=== PATIENT | male | born 1945 | race Two or more races ===

== ENCOUNTER → 2017-06-06 | Outpatient (CLI) | payer MEDICARE, MEDICAID ==
--- NOTE | 2017-06-06 09:57 | RADIOLOGY REPORT (SQ) ---
EXAM DESCRIPTION: CT ABD/PELVIS WITH IV ORAL COMPLETED DATE/TIME: 06/06/2017 8:31 am REASON FOR STUDY: ABD PAIN (R10.9) R10.9 UNSPECIFIED ABDOMINAL PAIN COMPARISON: None. TECHNIQUE: CT scan of the abdomen and pelvis performed with intravenous and oral contrast using josue mary scanning technique with dynamic intravenous contrast injection. Images reviewed with lung, soft t issue, and bone windows. Reconstructed coronal and sagittal MPR images reviewed. Delayed images for e valuation of the urinary system also acquired. All images stored on PACS. All CT scanners at this facility use dose modulation, iterative reconstruction, and/or weight based d osing when appropriate to reduce radiation dose to as low as reasonably achievable (ALARA). [facility]: Dose Right [facility]: CareDose [facility]: Dose Right [facility]: Teradose 4D [facility]: IMRSV CONTRAST TYPE AND DOSE: contrast/concentration: Isovue 370.00 mg/ml; Total Contrast Delivered: 89.0 ml; Total Saline Delivered: 70.0 ml RENAL FUNCTION: BUN 14 creatinine 0.67. RADIATION DOSE: Up-to-date CT equipment and radiation dose reduction techniques were employed. CTDIv ol: 6.7 - 7.9 mGy. DLP: 776 mGy-cm. . LIMITATIONS: None. FINDINGS: LOWER CHEST: No significant findings. No nodules or infiltrates. LIVER: Normal size. Diffuse fatty infiltration. No masses. No dilated ducts. SPLEEN: Normal size. No focal lesions. PANCREAS: No masses. No significant calcifications. No adjacent inflammation or peripancreatic fluid collections. Pancreatic duct not dilated. GALLBLADDER: No identified stones by CT criteria. No inflammatory changes to suggest cholecystitis. ADRENAL GLANDS: No significant masses or asymmetry. RIGHT KIDNEY AND URETER: No solid masses. No significant calcifications. No hydronephrosis or hyd roureter. LEFT KIDNEY AND URETER: No solid masses. No significant calcifications. No hydronephrosis or hydr oureter. AORTA AND VESSELS: No aneurysm. No dissection. Renal arteries, SMA, celiac without stenosis. RETROPERITONEUM: No retroperitoneal adenopathy, hemorrhage or masses. BOWEL AND PERITONEAL CAVITY: Scattered colonic diverticuli. Suboptimal contrast distention of the co nicolasa with areas of relative bowel wall thickening, most noticeable in the ascending colon. Stool in t he cecum. No obstruction. No visualized masses. No free fluid. No inflammatory changes or thickenin g of bowel wall. APPENDIX: Normal. PELVIS: No significant masses. Normal bladder. No free fluid. ABDOMINAL WALL: No masses. No hernias. BONES: No significant or acute findings. OTHER: No other significant finding. IMPRESSION: 1. COLONIC DIVERTICULOSIS. NO CT EVIDENCE OF ACUTE DIVERTICULITIS. THERE IS SUBOPTIMAL EVALUATION O F THE COLON DUE TO INCOMPLETE CONTRAST DISTENTION. IF CLINICALLY INDICATED, MAY CONSIDER COLONOSCOPY OR BARIUM ENEMA TO EVALUATE FOR ANY OTHER COLON PATHOLOGY. 2. NO OTHER SIGNIFICANT OR ACUTE FINDINGS IN THE ABDOMEN OR PELVIS. INCIDENTAL FATTY INFILTRATION OF THE LIVER. TECHNICAL DOCUMENTATION: JOB ID: [id number] Quality ID # [id number]: Final reports with documentation of one or more dose reduction techniques (e.g., Au tomated exposure control, adjustment of the mA and/or kV according to patient size, use of iterative reconstruction technique) 2010 [employer]- All Rights Reserved
== END ==
LOC: RAD 07:35
PROVIDERS: ATTEND Internal Medicine Geriatric Medicine
DX: R10.9 Unspecified abdominal pain (principal)
CPT/HCPCS: 74177

== ENCOUNTER → 2018-05-19 | Outpatient (CLI) | payer MEDICARE, MEDICAID ==
[2018-05-19 15:49] LABS: ABSOLUTE BASOPHILS # (AUTO) 0.1 10^3/uL (0.0-0.2); ABSOLUTE EOSINOPHILS # (AUTO) 0.5 10^3/uL (0.0-0.6); ABSOLUTE LYMPHOCYTES (AUTO) 1.7 10^3/uL (0.5-4.7); ABSOLUTE MONOCYTES (AUTO) 0.6 10^3/uL (0.1-1.4); ABSOLUTE NEUT (AUTO) 5.8 10^3/uL (1.7-8.2); BASOPHILS % (AUTO) 1.4 % (0-2); EOSINOPHILS % (AUTO) 5.9 % (0-6); HEMATOCRIT 44.1 % (37.9-51.0); HEMOGLOBIN 15.5 g/dL (13.5-17.0); LYMPHOCYTES % (AUTO) 19.5 % (13-45); MEAN CORPUSCULAR HEMOGLOBIN 35.4 pg (27.0-33.4); MEAN CORPUSCULAR HGB CONC 35.2 g/dL (32.0-36.0); MEAN CORPUSCULAR VOLUME 100 fl (80-97); MONOCYTES % (AUTO) 7.1 % (3-13); PLATELET COUNT 225 10^3/uL (150-450); RED BLOOD COUNT 4.39 10^6/uL (4.35-5.55); RED CELL DISTRIBUTION WIDTH 12.2 % (11.5-14.0); SEGMENTED NEUTROPHILS % (AUTO) 66.1 % (42-78); TOTAL CELLS COUNTED % (AUTO) 100 %; WHITE BLOOD COUNT 8.8 10^3/uL (4.0-10.5)
[2018-05-19 16:13] LABS: ALANINE AMINOTRANSFERASE 49 U/L (21-72); ALBUMIN 3.9 g/dL (3.5-5.0); ALKALINE PHOSPHATASE 132 U/L (38-126); ANION GAP 11 (5-19); ASPARTATE AMINO TRANSFERASE 64 U/L (17-59); BILIRUBIN,DIRECT 0.7 mg/dL (0.0-0.4); BILIRUBIN,TOTAL 2.1 mg/dL (0.2-1.3); BLOOD UREA NITROGEN 12 mg/dL (7-20); CALCIUM 9.4 mg/dL (8.4-10.2); CARBON DIOXIDE 30 mmol/L (22-30); CHLORIDE 97 mmol/L (98-107); CHOLESTEROL 216.69 mg/dL (0-200); GLUCOSE 330 mg/dL (75-110); POTASSIUM 4.6 mmol/L (3.6-5.0); SODIUM 137.5 mmol/L (137-145); TOTAL PROTEIN 7.2 g/dL (6.3-8.2); TRIGLYCERIDES 142 mg/dL (<150)
[2018-05-19 16:24] LABS: DIRECT LDL 163 mg/dL (<100)
--- NOTE | 2018-05-19 16:34 | RADIOLOGY REPORT (SQ) ---
EXAM DESCRIPTION: KNEE LEFT 4 VIEWS COMPLETED DATE/TIME: 05/19/2018 4:16 pm REASON FOR STUDY: DJD D64.9 ANEMIA, UNSPECIFIED E11.9 TYPE 2 DIABETES MELLITUS WITHOUT COMPLICATIO NS R10.9 UNSPECIFIED ABDOMINAL PAIN COMPARISON: None. NUMBER OF VIEWS: Four views. TECHNIQUE: AP, lateral, and both oblique radiographic images acquired of the left knee. LIMITATIONS: None. FINDINGS: MINERALIZATION: Normal. BONES: No acute fracture or dislocation. No worrisome bone lesions. No significant osteophytes. JOINT: No effusion. No chondrocalcinosis. OTHER: No other significant finding. IMPRESSION: NEGATIVE STUDY OF THE LEFT KNEE. NO EXPLANATION FOR PAIN. TECHNICAL DOCUMENTATION: JOB ID: [id number] [employer]- All Rights Reserved Reading location - IP/workstation name: [email or web address]
--- NOTE | 2018-05-19 16:34 | RADIOLOGY REPORT (SQ) ---
EXAM DESCRIPTION: ANKLE BILATERAL 3 VIEWS MIN COMPLETED DATE/TIME: 05/19/2018 4:16 pm REASON FOR STUDY: DJD D64.9 ANEMIA, UNSPECIFIED E11.9 TYPE 2 DIABETES MELLITUS WITHOUT COMPLICATIO NS R10.9 UNSPECIFIED ABDOMINAL PAIN COMPARISON: None. NUMBER OF VIEWS: Three views. TECHNIQUE: AP, lateral, and oblique without weight bearing radiographic images acquired of the right and left ankle. LIMITATIONS: None. FINDINGS: MINERALIZATION: Normal. BONES: No acute fracture or dislocation. No worrisome bone lesions. Osteophytes in the tibiotalar adriana nt of the left ankle. JOINTS: No effusions. SOFT TISSUES: No soft tissue swelling. No foreign body. OTHER: No other significant finding. IMPRESSION: DEGENERATIVE CHANGES IN THE LEFT ANKLE. NO ACUTE FINDINGS. TECHNICAL DOCUMENTATION: JOB ID: [id number] [employer]- All Rights Reserved Reading location - IP/workstation name: [email or web address]
--- NOTE | 2018-05-19 16:35 | RADIOLOGY REPORT (SQ) ---
EXAM DESCRIPTION: KNEE RIGHT 4 VIEWS COMPLETED DATE/TIME: 05/19/2018 4:16 pm REASON FOR STUDY: DJD D64.9 ANEMIA, UNSPECIFIED E11.9 TYPE 2 DIABETES MELLITUS WITHOUT COMPLICATIO NS R10.9 UNSPECIFIED ABDOMINAL PAIN COMPARISON: None. NUMBER OF VIEWS: Four views. TECHNIQUE: AP, lateral, and both oblique radiographic images acquired of the right knee. LIMITATIONS: None. FINDINGS: MINERALIZATION: Normal. BONES: No acute fracture or dislocation. No worrisome bone lesions. Small osteophytes in the medial c ompartment. JOINT: No effusion. No chondrocalcinosis. OTHER: No other significant finding. IMPRESSION: MILD DEGENERATIVE CHANGES IN THE MEDIAL COMPARTMENT. NO ACUTE FINDINGS. TECHNICAL DOCUMENTATION: JOB ID: [id number] [employer]- All Rights Reserved Reading location - IP/workstation name: [email or web address]
[2018-05-21 12:38] LABS: CREATININE URINE 455.3 mg/dL (Not Estab.); MICROALBUMIN URINE 97.7 ug/mL (Not Estab.)
== END ==
LOC: OD 14:31
PROVIDERS: ATTEND Internal Medicine
DX: D64.9 Anemia, unspecified (principal); E11.9 Type 2 diabetes mellitus without complications; R10.9 Unspecified abdominal pain; E55.9 Vitamin D deficiency, unspecified; E78.5 Hyperlipidemia, unspecified; M19.90 Unspecified osteoarthritis, unspecified site
CPT/HCPCS: 36415; 80053; 80061; 82043; 82306; 82570; 83036; 84443; 85025

== ENCOUNTER → 2018-06-30 | Outpatient (CLI) | payer MEDICARE, MEDICAID ==
[2018-06-30 16:09] LABS: ALANINE AMINOTRANSFERASE 32 U/L (21-72); ALKALINE PHOSPHATASE 82 U/L (38-126); ANION GAP 11 (5-19); ASPARTATE AMINO TRANSFERASE 39 U/L (17-59); BILIRUBIN,DIRECT 0.4 mg/dL (0.0-0.4); BILIRUBIN,TOTAL 1.3 mg/dL (0.2-1.3); BLOOD UREA NITROGEN 13 mg/dL (7-20); CALCIUM 9.5 mg/dL (8.4-10.2); CARBON DIOXIDE 30 mmol/L (22-30); CHLORIDE 96 mmol/L (98-107); POTASSIUM 4.7 mmol/L (3.6-5.0); SODIUM 136.8 mmol/L (137-145); TOTAL PROTEIN 7.2 g/dL (6.3-8.2); URIC ACID 6.1 mg/dL (3.5-8.5)
[2018-06-30 16:19] LABS: GLUCOSE 395 mg/dL (75-110)
== END ==
LOC: LAB 15:08
PROVIDERS: ATTEND Internal Medicine
DX: M10.9 Gout, unspecified (principal); R94.5 Abnormal results of liver function studies
CPT/HCPCS: 36415; 80053; 84550

== ENCOUNTER → 2018-10-26 | Outpatient (CLI) | payer MEDICARE, MEDICAID ==
[2018-10-26 13:49] LABS: ALANINE AMINOTRANSFERASE 29 U/L (21-72); ALBUMIN 4.4 g/dL (3.5-5.0); ALKALINE PHOSPHATASE 92 U/L (38-126); ANION GAP 11 (5-19); ASPARTATE AMINO TRANSFERASE 42 U/L (17-59); BILIRUBIN,DIRECT 0.4 mg/dL (0.0-0.4); BILIRUBIN,TOTAL 1.5 mg/dL (0.2-1.3); BLOOD UREA NITROGEN 16 mg/dL (7-20); CALCIUM 10.2 mg/dL (8.4-10.2); CARBON DIOXIDE 31 mmol/L (22-30); CHLORIDE 94 mmol/L (98-107); GLUCOSE 321 mg/dL (75-110); POTASSIUM 4.5 mmol/L (3.6-5.0); SODIUM 135.5 mmol/L (137-145); TOTAL PROTEIN 7.3 g/dL (6.3-8.2); TRIGLYCERIDES 221 mg/dL (<150)
[2018-10-26 14:00] LABS: DIRECT LDL 167 mg/dL (<100)
[2018-10-26 14:01] LABS: VLDL CHOLESTEROL 44.2 mg/dL (10-31)
[2018-10-27 10:38] LABS: MICROALBUMIN URINE 6.7 ug/mL (Not Estab.)
== END ==
LOC: LAB 12:42
PROVIDERS: ATTEND Internal Medicine
DX: E11.8 Type 2 diabetes mellitus with unspecified complications (principal); N19 Unspecified kidney failure; R10.9 Unspecified abdominal pain; E78.5 Hyperlipidemia, unspecified
CPT/HCPCS: 36415; 80048; 80061; 80076; 82043; 82570

== ENCOUNTER 2019-08-17 10:12 | Inpatient (IN) | payer MEDICARE, MEDICAID ==
[2019-08-17] MEDS ORDERED: CEFEPIME INJ 1 GM VIAL IV ONE (10:41)
[2019-08-17] MEDS ORDERED: VANCOMYCIN HCL INJ 1000 MG VIAL IV ONE (10:41)
[2019-08-17] MEDS ORDERED: NORMAL SALINE 1000 ML 1,000 ML IV ONE ×3 (10:45→12:20)
[2019-08-17 11:07] LABS: INTERNATIONAL RATION (INR) 3.31; PROTHROMBIN TIME 34.4 SEC (11.4-15.4)
[2019-08-17 11:18] LABS: ARTERIAL BLOOD BASE EXCESS -2.6 mmol/L; ARTERIAL BLOOD FIO2 3L; ARTERIAL BLOOD H2CO3 0.98 mmol/L (1.05-1.35); ARTERIAL BLOOD HCO3 21.1 mmol/L (20-24); ARTERIAL BLOOD O2 SATURATION 99.5 % (94-98); ARTERIAL BLOOD PCO2 32.7 mmHg (35-45); ARTERIAL BLOOD PH 7.43 (7.35-7.45); ARTERIAL BLOOD PO2 222.2 mmHg (80-100); ARTERIAL BLOOD TOTAL CO2 22.1 mmol/L (23-27)
[2019-08-17 11:20] LABS: ALBUMIN 2.2 g/dL (3.5-5.0); ALKALINE PHOSPHATASE 90 U/L (38-126); ANION GAP 16 (5-19); ASPARTATE AMINO TRANSFERASE 100 U/L (17-59); BILIRUBIN,DIRECT 1.8 mg/dL (0.0-0.4); BILIRUBIN,TOTAL 2.7 mg/dL (0.2-1.3); BLOOD UREA NITROGEN 115 mg/dL (7-20); CALCIUM 7.7 mg/dL (8.4-10.2); CARBON DIOXIDE 21 mmol/L (22-30); CHLORIDE 111 mmol/L (98-107); CREATINE KINASE 675 U/L (55-170); GLUCOSE 137 mg/dL (75-110); TOTAL PROTEIN 5.5 g/dL (6.3-8.2)
[2019-08-17 11:22] LABS: ALCOHOL < 10 mg/dL (NONE DETECTED)
[2019-08-17 11:23] LABS: POTASSIUM 2.9 mmol/L (3.6-5.0)
[2019-08-17 11:23] LABS: ABSOLUTE LYMPHOCYTES (AUTO) 0.7 10^3/uL (0.5-4.7); ABSOLUTE MONOCYTES (AUTO) 0.2 10^3/uL (0.1-1.4); ABSOLUTE NEUT (AUTO) 9.4 10^3/uL (1.7-8.2); BASOPHILS % (AUTO) 0.3 % (0-2); HEMOGLOBIN 11.1 g/dL (13.5-17.0); LYMPHOCYTES % (AUTO) 7.1 % (13-45); MEAN CORPUSCULAR HEMOGLOBIN 37.8 pg (27.0-33.4); MEAN CORPUSCULAR HGB CONC 33.7 g/dL (32.0-36.0); MONOCYTES % (AUTO) 2.2 % (3-13); RED BLOOD COUNT 2.94 10^6/uL (4.35-5.55); RED CELL DISTRIBUTION WIDTH 15.1 % (11.5-14.0); SEGMENTED NEUTROPHILS % (AUTO) 90.4 % (42-78); TOTAL CELLS COUNTED % (AUTO) 100 %; WHITE BLOOD COUNT 10.4 10^3/uL (4.0-10.5)
--- NOTE | 2019-08-17 11:33 | RADIOLOGY REPORT (SQ) ---
EXAM DESCRIPTION: CHEST SINGLE VIEW COMPLETED DATE/TIME: 08/17/2019 11:25 am REASON FOR STUDY: ams COMPARISON: None. EXAM PARAMETERS: NUMBER OF VIEWS: One view. TECHNIQUE: Single frontal radiographic view of the chest acquired. RADIATION DOSE: NA LIMITATIONS: None. FINDINGS: LUNGS AND PLEURA: No opacities, masses or pneumothorax. No pleural effusion. MEDIASTINUM AND HILAR STRUCTURES: No masses. Contour normal. HEART AND VASCULAR STRUCTURES: Heart normal in size. Normal vasculature. BONES: No acute findings. HARDWARE: None in the chest. OTHER: No other significant finding. IMPRESSION: NO ACUTE RADIOGRAPHIC FINDING IN THE CHEST. TECHNICAL DOCUMENTATION: JOB ID: [id number] [employer]- All Rights Reserved Reading location - IP/workstation name: [email or web address]
[2019-08-17] MEDS ORDERED: POTASSI CL 20 MEQ/50 ML RIDER 20 MEQ/50 ML RTUPB IV ONE (11:35)
[2019-08-17 11:59] LABS: MEAN CORPUSCULAR VOLUME 112 fl (80-97)
[2019-08-17 12:00] LABS: ANISOCYTOSIS SLIGHT; HOWELL-JOLLY BODIES PRESENT; PAPPENHEIMER BODIES PRESENT; PLATELET COMMENT DECREASED; PLATELET COUNT 65 10^3/uL (150-450); TARGET CELLS SLIGHT
--- NOTE | 2019-08-17 12:35 | RADIOLOGY REPORT (SQ) ---
EXAM DESCRIPTION: CT HEAD WITHOUT COMPLETED DATE/TIME: 08/17/2019 12:22 pm REASON FOR STUDY: ams COMPARISON: None. TECHNIQUE: Axial images acquired through the brain without intravenous contrast. Images reviewed wi th bone, brain and subdural windows. Additional sagittal and coronal reconstructions were generated. Images stored on PACS. All CT scanners at this facility use dose modulation, iterative reconstruction, and/or weight based d osing when appropriate to reduce radiation dose to as low as reasonably achievable (ALARA). [facility]: Dose Right [facility]: CareDose [facility]: Dose Right [facility]: Teradose 4D [facility]: [employer] RADIATION DOSE: CT Rad equipment meets quality standard of care and radiation dose reduction techniq ues were employed. CTDIvol: 53.2 mGy. DLP: 1044 mGy-cm. mGy. LIMITATIONS: None. FINDINGS: VENTRICLES: Normal size and contour. CEREBRUM: Mild cortical atrophy. No masses. No hemorrhage. No midline shift. No evidence for acut e infarction. Few scattered areas of low density in the white matter most likely chronic small vessel ischemic changes. CEREBELLUM: No masses. No hemorrhage. No alteration of density. No evidence for acute infarction. EXTRAAXIAL SPACES: No fluid collections. No masses. ORBITS AND GLOBE: No intra- or extraconal masses. Normal contour of globe without masses. CALVARIUM: No fracture. PARANASAL SINUSES: No fluid or mucosal thickening. SOFT TISSUES: No mass or hematoma. OTHER: No other significant finding. IMPRESSION: Mild involutional changes and chronic microvascular ischemia. No acute intracranial catina ging findings. EVIDENCE OF ACUTE STROKE: NO. COMMENT: Quality ID # [id number]: Final reports with documentation of one or more dose reduction techniques (e.g., Automated exposure control, adjustment of the mA and/or kV according to patient size, use of iterative reconstruction technique) TECHNICAL DOCUMENTATION: JOB ID: [id number] [employer]- All Rights Reserved Reading location - IP/workstation name: [email or web address]
--- NOTE | 2019-08-17 13:10 | ER Document Report ---
ED General - General Chief Complaint: Unresponsive Stated Complaint: UNRESPONSIVE/SEPSIS ALERT Primary Care Provider: RICHARD MEANS MD [Primary Care Provider] - Follow up as needed Mode of Arrival: Medic Information source: Emergency Med Personnel TRAVEL OUTSIDE OF THE [place] IN LAST 30 DAYS: No - HPI Notes: Patient is brought in by paramedics due to being found unresponsive. History per paramedics is that daughter has been calling the patient for several days with no response. Police were asked to do a welfare check. Police found the patient on the floor unresponsive. EMS was then called and brought the patient to the hospital. EMS states they found the patient with a blood pressure of approximately 60 systolic. Blood glucose was 200 on scene. There is no evidence of trauma. No vomitus. Patient was not incontinent of urine or stool. Patient symptoms are severe. They are constant. Nothing makes them better or worse. No known radiation of the symptoms. Patient is nonverbal and cannot contribute significantly to history. - Related Data Allergies/Adverse Reactions: No Known Allergies Allergy (Unverified 08/25/13 08:08) Past Medical History - General Information source: Emergency Med Personnel Cannot obtain history due to: Altered mental status - Social History Smoking Status: Former Smoker - History obtained from prior sources. Frequency of alcohol use: None known Drug Abuse: Other - None known Family History: Reviewed & Not Pertinent Patient has suicidal ideation: - Unk Patient has homicidal ideation: - Unk - Past Medical History Cardiac Medical History: Reports: Hx Hypertension - on meds Denies: Hx Coronary Artery Disease, Hx Heart Attack Pulmonary Medical History: Denies: Hx Asthma, Hx Bronchitis, Hx COPD, Hx Pneumonia Neurological Medical History: Denies: Hx Cerebrovascular Accident, Hx Seizures GI Medical History: Denies: Hx Hepatitis, Hx Hiatal Hernia, Hx Ulcer Musculoskeletal Medical History: Denies Hx Arthritis Infectious Medical History: Denies: Hx Hepatitis Past Surgical History: Denies: Hx Open Heart Surgery, Hx Pacemaker - Immunizations Hx Diphtheria, Pertussis, Tetanus Vaccination: No Review of Systems - Review of Systems -: Yes ROS unobtainable due to patient's medical condition - Due to patient's altered mental status review of symptoms cannot be obtaine Physical Exam - Vital signs Interpretation: Other - Patient is hypotensive with a normal heart rate. Patient is hypothermic with a temperature of 86 degrees rectally. - General General appearance: Lethargic In distress: Moderate - HEENT Head: Normocephalic, Atraumatic Conjunctiva: Injected Pupils: Pinpoint Mouth/Lips: Lesions Mucous membranes: Dry - Respiratory Respiratory status: No respiratory distress Chest status: Nontender Breath sounds: Normal Chest palpation: Normal - Cardiovascular Rhythm: Regular Heart sounds: Normal auscultation Murmur: No - Abdominal Inspection: Normal Distension: No distension Organomegaly: No organomegaly - Back Back: Normal, Nontender - Extremities General upper extremity: Normal inspection, Normal color. No: Edema General lower extremity: Normal inspection, Normal color. No: Edema, Don's sign - Neurological Cognition: Inattentive Orientation: Disoriented to person, Disoriented to place, Disoriented to time Noreen Coma Scale Eye Opening: Spontaneous [place] Coma Scale Verbal: None [place] Coma Scale Motor: Obeys Commands Noreen Coma Scale Total: 11 Additional motor exam normals: Involuntary movements - Psychological Associated symptoms: Depressed, Uncooperative - Skin Skin Temperature: Cool Skin Moisture: Dry Skin Color: Pale Skin Turgor: Tenting Course - Re-evaluation Re-evalutation: 08/17/19 13:11 Patient is brought in by EMS hypothermic and lethargic. Initial blood pressure was 88 systolic. Initial temperature was 86 rectally. Patient had a gag reflex and a GCS of approximately 10 therefore I chose not to intubate patient patient's respirations were unlabored and clear to auscultation as well. O2 saturation was also 100% therefore immediately placed a central line in the right femoral area. I began to fluid resuscitate the patient. He has become definitely more alert since being fluid resuscitated but would not follow most commands. He also seems to randomly pull at things such as his IV lines. He had to be restrained in order to prevent him from pulling out his central line. He appears very dehydrated with dry cracked lips and dark brown urine. Laboratories are also consistent with dehydration. Patient has a CT of the head with no acute pathology.. Patient does not have any apparent focal deficits. EKG has J waves but no acute ischemic changes. Chest x-ray does not show any infiltrates. I have discussed the patient with the steward/stewardess third class who will admit the patient. - Laboratory Result Diagrams: 08/17/19 11:06 08/17/19 10:42 Laboratory results interpreted by me: 08/17/19 08/17/19 08/17/19 10:42 10:42 10:45 RBC Hgb Hct MCV MCH RDW Plt Count Lymph % (Auto) [place] % (Auto) Absolute Neuts (auto) Seg Neutrophils % PT 34.4 H Carbonic Acid ABG pCO2 ABG pO2 ABG Total CO2 ABG O2 Saturation Sodium 148.3 H Potassium 2.9 L* Chloride 111 H Carbon Dioxide 21 L BUN 115 H Creatinine 2.98 H Est GFR ( Amer) 25 L Est GFR (MDRD) Non-Af 21 L Glucose 137 H POC Glucose Lactic Acid 4.3 H Calcium 7.7 L Total Bilirubin 2.7 H Direct Bilirubin 1.8 H AST 100 H Creatine Kinase 675 H Total Protein 5.5 L Albumin 2.2 L 08/17/19 08/17/19 08/17/19 10:53 11:06 11:06 RBC 2.94 L Hgb 11.1 L Hct 33.0 L MCV 112 H MCH 37.8 H RDW 15.1 H Plt Count 65 L Lymph % (Auto) 7.1 L [place] % (Auto) 2.2 L Absolute Neuts (auto) 9.4 H Seg Neutrophils % 90.4 H PT Carbonic Acid 0.98 L ABG pCO2 32.7 L ABG pO2 222.2 H ABG Total CO2 22.1 L ABG O2 Saturation 99.5 H Sodium Potassium Chloride Carbon Dioxide BUN Creatinine Est GFR ( Amer) Est GFR (MDRD) Non-Af Glucose POC Glucose 136 H Lactic Acid Calcium Total Bilirubin Direct Bilirubin AST Creatine Kinase Total Protein Albumin - Diagnostic Test Radiology reviewed: Image reviewed, Reports reviewed - EKG Interpretation by Mo EKG shows normal: Sinus rhythm Rate: Bradycardia - 53 Rhythm: Other - Junctional rhythm [place]/QRS: No: Right axis deviation, Left axis deviation Procedures - Central Line Right Femoral Time completed: 11:30 Consent obtained: No - Patient not able to give consent due to altered mental status Central line pre-insertion: Sterile PPE donned, Chloraprep applied, Sterile drapes applied Central line size (Fr.): 21 Central line lumen type: Triple Ultrasound guided: No Line secured with sutures: Yes Central line post-insertion: Blood return from lumens, Biopatch applied, Sutured, Sterile dressing applied Number of attempts: 1 Complications: No Critical Care Note - Critical Care Note Total time excluding time spent on procedures (mins): 80 Comments: Approximately 80 minutes of critical care time were spent on this patient. Patient had multiple reassessments. There was discussion with call center support consultant. There was review of labs and imaging. There is also review of old records. Discharge - Discharge Clinical Impression: Hypokalemia, Dehydration Altered mental status, unspecified Qualifiers: Altered mental status type: delirium Qualified Code(s): R41.0 - Disorientation, unspecified Liver failure Qualifiers: Liver failure chronicity: subacute Hepatic coma status: without hepatic coma Qualified Code(s): K72.00 - Acute and subacute hepatic failure without coma Hypothermia Qualifiers: Encounter type: initial encounter Qualified Code(s): T68.XXXA - Hypothermia, initial encounter Condition: Critical Disposition: ADMITTED INPATIENT Admitting Provider: Frank (Automatic Casting Machine Operator) Unit Admitted: ICU Referrals: RICHARD MEANS MD [Primary Care Provider] - Follow up as needed
[2019-08-17] MEDS ORDERED: DEXTROSE 5%-WATER 250 ML with NOREPINEPHRINE BITARTRATE 4 MG IV PRN ×2 (13:47)
[2019-08-17 13:55] LABS: APPEARANCE,URINE TURBID; BILIRUBIN,URINE SMALL (NEGATIVE); GLUCOSE, URINE 50 mg/dL (NEGATIVE); KETONES,URINE NEGATIVE (NEGATIVE); PROTEIN,URINE NEGATIVE (NEGATIVE); URINE SPECIFIC GRAVITY 1.024
[2019-08-17 13:56] LABS: COLOR,URINE BROWN
[2019-08-17] MEDS ORDERED: DEXTROSE 50%-WATER 25 GM/50 ML DISP.SYRIN IV PRN ×2 (14:01)
[2019-08-17] MEDS ORDERED: RINGERS SOLUTION,LACTATED 1,000 ML IV PRN (14:01)
[2019-08-17] MEDS ORDERED: GLUCAGON,HUMAN RECOMB 1 MG INJ SUBCUT PRN (14:01)
[2019-08-17] MEDS ORDERED: DEXTROSE 40% GEL 15 GM TUBE PO PRN ×2 (14:01)
[2019-08-17] MEDS ORDERED: NOREPINEPHRINE BITARTRATE INJ/PF 4 MG/4 ML SDV IV ONE ×3 (14:06→21:23)
[2019-08-17 14:15] LABS: URINE AMPHETAMINES SCREEN NEGATIVE; URINE BARBITURATES SCREEN NEGATIVE; URINE BENZODIAZEPINES SCREEN NEGATIVE; URINE COCAINE SCREEN NEGATIVE; URINE MARIJUANA (THC) SCREEN NEGATIVE; URINE METHADONE SCREEN NEGATIVE; URINE PHENCYCLIDINE SCREEN NEGATIVE
[2019-08-17] MEDS ORDERED: VANCOMYCIN HCL 0 MG in DEXTROSE 5%-WATER 250 ML IV NR (14:45)
[2019-08-17 14:50] LABS: PHOSPHORUS 6.3 mg/dL (2.5-4.5)
[2019-08-17] MEDS ORDERED: PHYTONADIONE INJ 10 MG/1 ML AMPULE IV ONE (15:00)
[2019-08-17] MEDS ORDERED: ALBUMIN HUMAN 500 ML IV ONE (15:00)
[2019-08-17 15:08] LABS: FREE T3 1.57 pg/mL (2.77-5.27); FREE T4 (FREE THYROXINE) 1.68 ng/dL (0.78-2.19)
[2019-08-17 15:21] LABS: THYROID STIMULATING HORMONE 3.11 uIU/mL (0.47-4.68)
[2019-08-17] MEDS ORDERED: LORAZEPAM INJ 2 MG/1 ML VIAL ONE (17:46)
[2019-08-17] MEDS ORDERED: LEVETIRACETAM 1,000 MG in NORMAL SALINE 100 ML IV ONE (17:56)
[2019-08-17] MEDS ORDERED: PIPERACILLIN SODIUM/TAZOBACTAM 2.25 GM in NORMAL SALINE 50 ML IV SCH (18:00)
[2019-08-17] MEDS ORDERED: ETOMIDATE INJ/PF 20 MG/10 ML SDV IV ONE (18:03)
[2019-08-17] MEDS ORDERED: FENTANYL CITRATE INJ/PF 100 MCG/2 ML AMPUL ONE (18:03)
[2019-08-17] MEDS: AMPICILLIN SODIUM 2 GM in NORMAL SALINE 100 ML IV SCH ×2 (18:07→22:12)
[2019-08-17 18:12] LABS: ARTERIAL BLOOD BASE EXCESS -4.7 mmol/L; ARTERIAL BLOOD H2CO3 0.83 mmol/L (1.05-1.35); ARTERIAL BLOOD HCO3 18.2 mmol/L (20-24); ARTERIAL BLOOD O2 SATURATION 76.7 % (94-98); ARTERIAL BLOOD PCO2 27.7 mmHg (35-45); ARTERIAL BLOOD PH 7.44 (7.35-7.45)
[2019-08-17 18:13] LABS: ARTERIAL BLOOD FIO2 52L
[2019-08-17 18:14] LABS: ARTERIAL BLOOD PO2 39.1 mmHg (80-100)
[2019-08-17] MEDS ORDERED: PROPOFOL 1,000 MG/100 ML INFUS..BTL IV ONE (18:15)
[2019-08-17] MEDS ORDERED: NORMAL SALINE INJ/PF 0.9% 10 ML SDV IV PRN (18:16)
[2019-08-17] MEDS ORDERED: PROPOFOL 1,000 MG/100 ML INFUS..BTL IV PRN (18:16)
[2019-08-17] MEDS ORDERED: NORMAL SALINE 250 ML IV PRN ×2 (18:21)
[2019-08-17] MEDS ORDERED: LORAZEPAM INJ 2 MG/1 ML VIAL IV ONE (18:30)
[2019-08-17] MEDS ORDERED: PHARMACY COMMUNICATION ORDER MC NR (18:30)
--- NOTE | 2019-08-17 18:48 | CRITICAL CARE ADMISSION REPORT ---
HPI Date:: 08/17/19 Time:: 14:10 Reason for ICU Reason:: Sepsis with shock, encephalopathy HPI: Called by ED staff for patient found down. He primarily speaks Divehi but even with Divehi interpreters cannot communicate. Daughter states patient has been depressed but not aware of any overt drug use or suicide ideation. He does carry a history of alcohol use which appears to be significant. He also has T2DM on oral medications. Review of medications shows no significant correlation or etiologic connection to encephalopathy. Noted to be in acute renal failure. Medications brought in show use of NSAIDS Extremely hypothermic requiring warming blanket. Urine discolored and extremely concentrated on visualization. UA pending. Given broad spectrum (Cefepime/Vanco) in ED. No history of seizures. The only significant history from daughter is that he has been depressed since and did not want to see family. He has felt that he was dying. Has had questionable weight loss but unable to confirm. Noted history from ED: Patient is brought in by paramedics due to being found unresponsive. History per paramedics is that daughter has been calling the patient for several days with no response. Police were asked to do a welfare check. Police found the patient on the floor unresponsive. EMS was then called and brought the patient to the hospital. EMS states they found the patient with a blood pressure of approximately 60 systolic. Blood glucose was 200 on scene. There is no evidence of trauma. No vomitus. Patient was not incontinent of urine or stool. Patient symptoms are severe. They are constant. Nothing makes them better or worse. No known radiation of the symptoms. Patient is nonverbal and cannot contribute significantly to history. Events of admission: Patient had been admitted to the critical care service but had an EEG in the ED prior to coming over. The histologist technologist was not able to comment directly on any seizure activity but did state that it was abnormal. We are awaiting the official reading. Patient was transported to the ICU with where he appeared to have nystagmus and confusion. His blood pressure was significantly elevated necessitating discontinuation of Levophed. He had roving nystagmus and blinking on automutism's. I gave him 2 mg of Ativan with improvement in his neuro status. He aspirated twice during the ictal event. He then developed hypoxia necessitating bag mask valve ventilation and eventually emergently intubated in the ICU. Chest x-ray shows early right upper lobe interstitial changes consistent with most likely an aspiration. Notably when the patient was intubated significant gastric secretions were noted in the ET tube concerning enough that it was at first thought that the esophagus had been intubated. However confirmation by bilateral breath sounds end-tidal CO2 exchange and improvement in hypoxia as well as chest x-ray confirmation revealed the ET tube was in appropriate position and client representative of a significant aspiration event. We will be performing bronchoscopy to clear any residual secretions given the acute timeframe. I notified the patient's daughter. I am concerned that the patient might be having nonconvulsive status and if so may need continuous EEG monitoring. Addition to the above patient is hypotensive which may be related to sepsis. His gastric aspirate appears to be dark and bloody and this may represent hemorrhagic shock as well. Have ordered blood products and will correct coagulopathy. Will need an EEG and possible transfer for continuous EEG monitoring however at this point stabilization of his bleed and his blood pressure is of paramount importance. I have started him on IV Keppra. The daughter was contacted and she alluded very strongly to the fact that the patient has been drinking significant amount of wine and has not been eating well. High-dose thiamine has been added. I am suspicious that he may have variceal bleeding or gastritis from alcohol use. In addition his neurological status may be indicative of an encephalitis or meningitis and have started appropriate antibiotic treatment. Unfortunately we are unable to perform an LP given his coagulation dysfunction. FFP and platelets have been ordered. Is already been given IV vitamin K. Had central line placed in his right femoral vein. Confirmation of placement in the vein was done with a venous blood gas which was consistent with venous cannulation. Given the fact that this was placed emergently in the emergency room we will place a a more formal and completely sterile central venous catheter in the neck once his blood products are given to prevent any further bleeding. The daughter has been made aware of his condition. She is given verbal consent over the phone for central line placement arterial line placement and blood products. He is a full code at this point but she did again state that the patient felt that he wanted to and was going to . Unsure if this represents a suicide attempt however will need to fully evaluate this once he is off the sedation and mechanical ventilation. I have added reduced dose acyclovir given his renal failure. We will have to be very careful to evaluate for further seizures with ampicillin use. History obtained from:: ED staff and Daughter, Aylin - Diagnosis/Plan (1) Sepsis with encephalopathy and septic shock Qualifiers: Sepsis type: sepsis due to unspecified organism Qualified Code(s): A41.9 - Sepsis, unspecified organism; R65.21 - Severe sepsis with septic shock; G93.40 - Encephalopathy, unspecified Is this a current diagnosis for this admission?: Yes Plan: See below. (2) Encephalopathy acute Is this a current diagnosis for this admission?: Yes Plan: metabolic, possible toxin related (3) Acute renal failure Is this a current diagnosis for this admission?: Yes Plan: IVF, albumin (4) Rhabdomyolysis Qualifiers: Rhabdomyolysis type: traumatic Encounter type: initial encounter Qual ified Code(s): T79.6XXA - Traumatic ischemia of muscle, initial encounter Is this a current diagnosis for this admission?: Yes (5) Coagulopathy Is this a current diagnosis for this admission?: Yes Plan: Suspect nutritional (6) Type 2 diabetes mellitus Qualifiers: Diabetes mellitus termination clerk insulin use: without senior living use Diabetes mellitus complication status: with other specified complication Qualified Code(s): E11.69 - Type 2 diabetes mellitus with other specified complication Is this a current diagnosis for this admission?: Yes (7) Alcohol use Is this a current diagnosis for this admission?: Yes - . Plan Summary: Admit to ICU Broad spectrum antibiotics to include meningitis coverage. I am concerned that acyclovir may worsen renal function and will attempt to obtain LP in a timely fashion. Will need to be vigilant for seizures Vitamin K IV MRI UA with culture Blood and Urine cultures Influenza screen IVF Albumin Levophed for hypotension Check cortisol EEG UDS Unable to do LP secondary to coagulopathy Follow CK ECG Check TSH, HbA1c Past Medical History Cardiac Medical History: Reports: Hypertension - on meds Denies: Coronary Artery Disease, Myocardial Infarction Pulmonary Medical History: Denies: Asthma, Bronchitis, Chronic Obstructive Pulmonary Disease (COPD), Pneumonia Neurological Medical History: Denies: Seizures Endocrine Medical History: Reports: Diabetes Mellitus Type 2 Renal/ Medical History: Reports: None Malignancy Medical History: Reports: None GI Medical History: Reports: Peptic Ulcer Disease Denies: Hepatitis, Hiatal Hernia Musculoskeltal Medical History: Reports: Arthritis Psychiatric Medical History: Reports: Alcohol Dependency, Depression Traumatic Medical History: Reports: None Hematology: Reports: None Denies: Anemia, Sickle Cell Disease Infectious Medical History: Reports: None Past Surgical History Past Surgical History: Reports: Other - Eye and joint surgery Denies: Pacemaker Social/Family History - Social History Lives with: Alone - In assisted living Smoking Status: Former Smoker - History obtained from prior sources. Frequency of Alcohol Use: Heavy Amount of Alcoholic Beverages Per Day: Unknown. Drinks wine Hx Recreational Drug Use: No Drugs: None - Family History Family History: None Family History: Unable to determine - Medication/Allergies Home Medications: Atorvastatin Calcium [Lipitor 40 mg Tablet] 40 mg PO QHS 08/17/19 Glimepiride 2 mg PO QPM 08/17/19 Glimepiride 4 mg PO QAM 08/17/19 Metformin HCl [Metformin HCl ER] 500 mg PO WSUPPER 08/17/19 Allergies/Adverse Reactions: No Known Allergies Allergy (Unverified 08/25/13 08:08) Review of Systems ROS unobtainable: Due to mental status Psychiatric: PRESENT: depression Physical Exam Vital Signs: Intake & Output 08/16/19 08/17/19 08/18/19 06:59 06:59 06:59 Intake Total 1999 Balance 1999 Weight 63.9 kg Weight/Height Weight 63.9 kg General appearance: PRESENT: disheveled, thin. ABSENT: cooperative Exam: Ill, non-verbal, non-toxic, ill, Head exam: PRESENT: atraumatic Eye exam: PRESENT: conjunctiva pink, PERRLA. ABSENT: conjunctival injection, scleral icterus Ear exam: PRESENT: normal external ear exam Mouth exam: PRESENT: dry mucosa Teeth exam: PRESENT: poor dentation Neck exam: PRESENT: other - resists neck flexion, becomes combative. ABSENT: c arotid bruit, full ROM, JVD, lymphadenopathy, thyromegaly, tracheal deviation, tracheostomy Respiratory exam: PRESENT: clear to auscultation yanet, unlabored. ABSENT: accessory muscle use, rales, rhonchi, tachypnea, wheezes Cardiovascular exam: PRESENT: RRR, +S1, +S2. ABSENT: systolic murmur Pulses: ABSENT: normal dorsalis pedis pul, +1 pedal pulses bilateral Vascular exam: ABSENT: normal capillary refill, pallor GI/Abdominal exam: PRESENT: normal bowel sounds, soft. ABSENT: ascites, distended, guarding, mass, organolmegaly, rebound, rigid, tenderness Rectal exam: PRESENT: deferred Gentrourinary exam: PRESENT: indwelling catheter. ABSENT: erythema, scrotal swelling Extremities exam: ABSENT: pedal edema, tenderness Musculoskeletal exam: ABSENT: deformity, dislocation Neurological exam: PRESENT: altered, other - Questionable nystagmus. Has liliane- erection. No clonus Psychiatric exam: PRESENT: agitated Focused psych exam: PRESENT: catatonic, psychomotor agitation - During exam, restlessness Skin exam: PRESENT: dry, normal color. ABSENT: abrasion, cyanosis, erythema, mottled, pallor Laboratory/Radiographs Laboratory Results: 08/17/19 11:06 08/17/19 10:42 08/17/19 08/17/19 08/17/19 10:42 10:45 10:53 WBC RBC Hgb Hct MCV MCH MCHC RDW Plt Count Seg Neutrophils % Carbonic Acid 0.98 L HCO3/H2CO3 Ratio 21:1 ABG pH 7.43 ABG pCO2 32.7 L ABG pO2 222.2 H ABG HCO3 21.1 ABG O2 Saturation 99.5 H ABG Base Excess -2.6 FiO2 3L Sodium 148.3 H Potassium 2.9 L* Chloride 111 H Carbon Dioxide 21 L Anion Gap 16 BUN 115 H Creatinine 2.98 H Est GFR ( Amer) 25 L Glucose 137 H Lactic Acid 4.3 H Calcium 7.7 L Total Bilirubin 2.7 H AST 100 H Alkaline Phosphatase 90 Total Protein 5.5 L Albumin 2.2 L Urine Color Urine Appearance Urine pH Ur Specific Kinsman Urine Protein Urine Glucose (UA) Urine Ketones Urine Blood Urine RBC (Auto) 08/17/19 08/17/19 10:58 11:06 WBC 10.4 RBC 2.94 L Hgb 11.1 L Hct 33.0 L MCV 112 H MCH 37.8 H MCHC 33.7 RDW 15.1 H Plt Count 65 L Seg Neutrophils % 90.4 H Carbonic Acid HCO3/H2CO3 Ratio ABG pH ABG pCO2 ABG pO2 ABG HCO3 ABG O2 Saturation ABG Base Excess FiO2 Sodium Potassium Chloride Carbon Dioxide Anion Gap BUN Creatinine Est GFR ( Amer) Glucose Lactic Acid Calcium Total Bilirubin AST Alkaline Phosphatase Total Protein Albumin Urine Color BROWN Urine Appearance TURBID Urine pH 5.0 Ur Specific [place] 1.024 Urine Protein NEGATIVE Urine Glucose (UA) 50 H Urine Ketones NEGATIVE Urine Blood SMALL H Urine RBC (Auto) 0 01/07/20 01/07/20 10:42 10:42 Creatine Kinase 675 H Troponin I < 0.012 Impressions: Chest X-Ray 08/17/19 10:41 IMPRESSION: NO ACUTE RADIOGRAPHIC FINDING IN THE CHEST. Head CT 08/17/19 10:44 IMPRESSION: Mild involutional changes and chronic microvascular ischemia. No acute intracranial imaging findings. EVIDENCE OF ACUTE STROKE: NO. All labs, radiographs, diagnostic studies and EKGs were personally reviewed: Yes In addition, reports of radiographic and diagnostic studies were read: Yes Critical Time Critical Time (minutes): 140 -: The care of a critically ill patient is dynamic. This note represents a static moment in the admission process. Orders and treatments may be given simultaneously and urgently, and time is not client representative of the treatment process. This patient requires Critical Care secondary to life threatening organ or limb dysfunction. Without Critical Care services, the patient is at risk for increased mortality and morbidity.
[2019-08-17] MEDS ORDERED: ROCURONIUM BROMIDE INJ 50 MG/5 ML VIAL IV ONE ×2 (18:53→21:03)
--- NOTE | 2019-08-17 18:53 | Operative Report ---
Bedside Procedure - History of Present Illness History of Present Illness: Called by ED staff for patient found down. He primarily speaks Kosovan but even with Kosovan interpreters cannot communicate. Daughter states patient has been depressed but not aware of any overt drug use or suicide ideation. He does carry a history of alcohol use which appears to be significant. He also has T2DM on oral medications. Review of medications shows no significant correlation or etiologic connection to encephalopathy. Noted to crystal e in acute renal failure. Medications brought in show use of NSAIDS Extremely hypothermic requiring warming blanket. Urine discolored and extremely concentrated on visualization. UA pending. Given broad spectrum (Cefepime/Vanco) in ED. No history of seizures. The only significant history from daughter is that he has been depressed since and did not want to see family. He has felt that he was dying. Has had questionable weight loss but unable to confirm. Noted history from ED: Patient is brought in by paramedics due to being found unresponsive. History per paramedics is that daughter has been calling the patient for several days with no response. Police were asked to do a welfare check. Police found the patient on the floor unresponsive. EMS was then called and brought the patient to the hospital. EMS states they found the patient with a blood pressure of approximately 60 systolic. Blood glucose was 200 on scene. There is no evidence of trauma. No vomitus. Patient was not incontinent of urine or stool. Patient symptoms are severe. They are constant. Nothing makes them better or worse. No known radiation of the symptoms. Patient is nonverbal and cannot contribute significantly to history. Events of admission: Patient had been admitted to the critical care service but had an EEG in the ED prior to coming over. The plastic surgery technician was not able to comment directly on any seizure activity but did state that it was abnormal. We are awaiting the official reading. Patient was transported to the ICU with where he appeared to have nystagmus and confusion. His blood pressure was significantly elevated necessitating discontinuation of Levophed. He had roving nystagmus and blinking on automutism's. I gave him 2 mg of Ativan with improvement in his neuro status. He aspirated twice during the ictal event. He then developed hypoxia necessitating bag mask valve ventilation and eventually emergently intubated in the ICU. Chest x-ray shows early right upper lobe interstitial changes consistent with most likely an aspiration. Notably when the patient was intubated significant gastric secretions were noted in the ET tube concerning enough that it was at first thought that the esophagus had been intubated. However confirmation by bilateral breath sounds end-tidal CO2 exchange and improvement in hypoxia as well as chest x-ray confirmation revealed the ET tube was in appropriate position and novelties sales representative of a significant aspiration event. We will be performing bronchoscopy to clear any residual secretions given the acute timeframe. I notified the patient's daughter. I am concerned that the patient might be having nonconvulsive status and if so may need continuous EEG monitoring. Addition to the above patient is hypotensive which may be related to sepsis. His gastric aspirate appears to be dark and bloody and this may represent hemorrhagic shock as well. Have ordered blood products and will correct coagulopathy. Will need an EEG and possible transfer for continuous EEG monitoring however at this point stabilization of his bleed and his blood pressure is of paramount importance. I have started him on IV Keppra. The daughter was contacted and she alluded very strongly to the fact that the patient has been drinking significant amount of wine and has not been eating well. High-dose thiamine has been added. I am suspicious that he may have variceal bleeding or gastritis from alcohol use. In addition his neurological status may be indicative of an encephalitis or meningitis and have started appropriate antibiotic treatment. Unfortunately we are unable to perform an LP given his coagulation dysfunction. FFP and platelets have been ordered. Is already been given IV vitamin K. Had central line placed in his right femoral vein. Confirmation of placement in the vein was done with a venous blood gas which was consistent with venous cannulation. Given the fact that this was placed emergently in the emergency ro om we will place a a more formal and completely sterile central venous catheter in the neck once his blood products are given to prevent any further bleeding. The daughter has been made aware of his condition. She is given verbal consent over the phone for central line placement arterial line placement and blood products. He is a full code at this point but she did again state that the patient felt that he wanted to and was going to . Unsure if this represents a suicide attempt however will need to fully evaluate this once he is off the sedation and mechanical ventilation. I have added reduced dose acyclovir given his renal failure. We will have to be very careful to evaluate for further seizures with ampicillin use. Procedure Procedure: Emergent intubation Preprocedure diagnosis: Acute respiratory failure with aspiration and possible seizure Postprocedure diagnosis: Same Proceduralist: Frank ROTHMAN [facility] Anesthesia: Fentanyl 100 mcg, etomidate 20 mg, rocuronium 50 mg Complications: None Blood loss: None Adjunctive equipment: Immediately available including glide scope, intubating bougie, LMA Findings: Grade 2 view with #4 Margarita blade. Significant gastric contents in the glottis and tracheal orifice. Questionable dark blood: Endotracheal tube seen on chest x-ray mid trachea 2 to 3 cm above yashira. Early aspiration changes right upper lobe Patient was appropriate identified secondary to ongoing critical care. No ability to obtain consent was available secondary to the patient's urgent condition. He had had an active aspiration event and possible seizure. He became hypoxic. Full equipment available and immediately at bedside the patient was given an early analgesic sedation dose of fentanyl. This was followed quickly by 20 mg of etomidate and 50 mg rocuronium. He had already had 2 mg of Ativan and was able to verbalize more than previous indicative of a possible seizure prior to the event. His oxygen saturation remained low and he was actively gurgling. After induction patient was intubated with #4 MAC with mild tracheal pressure to facilitate a grade 2 view. Immediately on intubation no gastric sounds were heard however gastric contents were seen in the ET tube. Bilateral breath sounds were heard and end-tidal CO2 exchange and up to 10 insufflations. Chest x-ray confirmed proper placement. Patient tolerated procedure well no complications. Indication for Procedure: Hypoxia with aspiration Date: 08/17/19 Provider: LISA BOGGS
--- NOTE | 2019-08-17 18:59 | RADIOLOGY REPORT (SQ) ---
EXAM DESCRIPTION: CHEST SINGLE VIEW COMPLETED DATE/TIME: 08/17/2019 6:41 pm REASON FOR STUDY: aspiration COMPARISON: None. EXAM PARAMETERS: NUMBER OF VIEWS: One view. TECHNIQUE: Single frontal radiographic view of the chest acquired. RADIATION DOSE: NA LIMITATIONS: None. FINDINGS: LUNGS AND PLEURA: There is right upper lobe airspace disease worrisome for aspiration pneu monia. Lungs are otherwise well inflated and clear. No pleural effusion. No pneumothorax. MEDIASTINUM AND HILAR STRUCTURES: No masses. Contour normal. HEART AND VASCULAR STRUCTURES: Heart normal in size. Normal vasculature. BONES: No acute findings. HARDWARE: Endotracheal tube tip 4 cm above the yashira. Nasogastric tube tip and side port in the sto mach. Moderate gaseous distension stomach. OTHER: No other significant finding. IMPRESSION: Early or developing right upper lobe infiltrate worrisome for aspiration pneumonia Endotracheal tube, nasogastric tube in good positioning. TECHNICAL DOCUMENTATION: JOB ID: [id number] [employer]- All Rights Reserved Reading location - IP/workstation name: [email or web address]
[2019-08-17] MEDS ORDERED: PANTOPRAZOLE SODIUM 80 MG in NORMAL SALINE 100 ML IV ONE (19:00)
[2019-08-17] MEDS ORDERED: LEVETIRACETAM 1000 MG/NACL-ISO 1,000 MG/100 ML RTUPB IV ONE (19:00)
[2019-08-17] MEDS ORDERED: OCTREOTIDE ACETATE INJ/PF 100 MCG/1 ML SDV IV ONE (19:00)
[2019-08-17] MEDS ORDERED: FOLIC ACID INJ 5 MG/1 ML 10 ML VIAL IV SCH (19:15)
[2019-08-17] MEDS ORDERED: VASOPRESSIN INJ 20 UNIT/1 ML VIAL ONE (19:40)
[2019-08-17 19:44] LABS: HEMATOCRIT 39.3 % (37.9-51.0); HEMOGLOBIN 13.1 g/dL (13.5-17.0); MEAN CORPUSCULAR HEMOGLOBIN 37.7 pg (27.0-33.4); MEAN CORPUSCULAR HGB CONC 33.4 g/dL (32.0-36.0); MEAN CORPUSCULAR VOLUME 113 fl (80-97); PLATELET COUNT 106 10^3/uL (150-450); RED BLOOD COUNT 3.48 10^6/uL (4.35-5.55); RED CELL DISTRIBUTION WIDTH 15.5 % (11.5-14.0)
[2019-08-17] MEDS: DEXTROSE 5%-WATER 250 ML with VASOPRESSIN 100 UNIT IV PRN ×2 (19:45)
--- NOTE | 2019-08-17 20:00 | NEURO WORKBENCH EEG REPORT ---
EEG Report Patient: Peyman Pollard ID: [id number] Referring Doctor: Peter Marie DOS: 08/17/2019 Medications: Albutein, ampicillin, Rocephin, norepinephrine, vancomycin History This is a 73 year old man with a history of CAD, hypertension, arthritis, type 2 diabetes, liver disease, depression, alcohol use, tobacco use (quit 22 years ago), ear and nose surgery admitted with altered mental status, hypokalemia, in soft restraints, on oxygen and cooling blanket with temperature 91.2 degrees per ambulatory technologist (however per history in chart the patient presented with hypothermia and is being actively warmed). This EEG was requested for possible seizures. EEG Interpretation This EEG was recorded in the awake and drowsy states with the patients eyes open and closing spontaneously. The awake EEG is characterized by a disorganized background that is suppressed with mostly delta activity but mixes of theta, beta and alpha activity most noted centrally. There is no posterior dominant rhythm noted with passive or active eye closure. There are intermittent generalized delta waves followed by briefly more suppressed periods that could be consistent with generalized periodic discharges (GPDs) however they do not repeat in periodic patterns. The patient had spontaneous head and body movements, non-rhythmic, with associated muscle artifact noted. Photic stimulation resulted in no significant changes. There was significant 60Hz artifact throughout the recording and a notch filter was used to read the recording. There were no epileptiform abnormalities noted. The EKG showed a regular rhythm. EEG Classification Generalized periodic discharges (GPDs) Disorganized Generalized background slowing Suppression Technically poor study EEG Impression This EEG is abnormal. It is suggestive of diffuse cerebral dysfunction however it was recorded in a hypothermic state. There were no seizures noted. The GPDs may increase or epileptiform discharges may appear in a normothermic state. Continuous termite exterminator EEG monitoring is recommended as the patient becomes normothermic.. Of note, the EEG interpretation was impaired due to artifact. INTERPRETING NEUROLOGIST: Geraldine Chandler MD, CPC Board Certified in Neurology, with special qualification in Child Neurology, and in Clinical Neurophysiology [facility]
[2019-08-17 20:12] LABS: WHITE BLOOD COUNT 9.3 10^3/uL (4.0-10.5)
[2019-08-17] MEDS: DEXTROSE 5%-WATER 250 ML with NOREPINEPHRINE BITARTRATE 4 MG IV PRN ×4 (20:41→21:32)
[2019-08-17] MEDS: NORMAL SALINE 500 ML with OCTREOTIDE ACETATE 500 MCG IV PRN ×2 (20:44)
[2019-08-17] MEDS: ACYCLOVIR SODIUM IV SCH (20:46)
[2019-08-17] MEDS: NORMAL SALINE IV SCH ×2 (20:46→22:13)
[2019-08-17 21:31] LABS: ARTERIAL BLOOD BASE EXCESS -12.6 mmol/L; ARTERIAL BLOOD FIO2 40%; ARTERIAL BLOOD H2CO3 1.02 mmol/L (1.05-1.35); ARTERIAL BLOOD HCO3 13.9 mmol/L (20-24); ARTERIAL BLOOD O2 SATURATION 96.4 % (94-98); ARTERIAL BLOOD PH 7.23 (7.35-7.45); ARTERIAL BLOOD PO2 98.2 mmHg (80-100); ARTERIAL BLOOD TOTAL CO2 14.9 mmol/L (23-27)
[2019-08-17] MEDS ORDERED: CEFTRIAXONE 2 GM/D5W RTU 2 GM/50 ML RTUPB IV SCH (22:00)
[2019-08-17] MEDS ORDERED: LEVETIRACETAM 500 MG in NORMAL SALINE 100 ML IV SCH (22:00)
[2019-08-17] MEDS: THIAMINE HCL 500 MG in NORMAL SALINE 250 ML IV SCH (22:12)
[2019-08-17] MEDS: FOLIC ACID IV SCH (22:13)
[2019-08-17] MEDS ORDERED: RINGERS SOLUTION,LACTATED 250 ML IV ONE (22:26)
--- NOTE | 2019-08-17 22:38 | EKG REPORT ---
SEVERITY:- ABNORMAL ECG - SINUS RHYTHM ATRIAL PREMATURE COMPLEX RIGHT BUNDLE BRANCH BLOCK QT PROLONGATION : Confirmed by: Randolph Mcmahan 17-Aug-2019 22:37:27
[2019-08-17] MEDS ORDERED: FLUDROCORTISONE ACETATE 0.1 MG TABLET PO SCH (22:45)
[2019-08-17] MEDS ORDERED: FLUDROCORTISONE ACETATE 0.1 MG TABLET NG ONE (23:15)
[2019-08-17] MEDS ORDERED: DEXAMETHASONE SOD PHOS INJ 10 MG/1 ML VIAL IV ONE (23:15)
[2019-08-17] MEDS ORDERED: OCTREOTIDE ACETATE INJ/PF 100 MCG/1 ML SDV ONE (23:22)
[2019-08-17] MEDS: MINERAL OIL/PETROLATUM,WHITE OPH OINT 3.5 GM OU SCH (23:27)
[2019-08-17 23:41] LABS: ARTERIAL BLOOD BASE EXCESS -12.7 mmol/L; ARTERIAL BLOOD H2CO3 1.14 mmol/L (1.05-1.35); ARTERIAL BLOOD HCO3 14.4 mmol/L (20-24); ARTERIAL BLOOD O2 SATURATION 89.7 % (94-98); ARTERIAL BLOOD PCO2 37.8 mmHg (35-45); ARTERIAL BLOOD PO2 68.4 mmHg (80-100); ARTERIAL BLOOD TOTAL CO2 15.6 mmol/L (23-27)
[2019-08-17] MEDS ORDERED: DEXAMETHASONE SOD PHOS INJ 10 MG/1 ML VIAL ONE (23:44)
[2019-08-17] MEDS ORDERED: FLUDROCORTISONE ACETATE 0.1 MG TABLET ONE (23:45)
[2019-08-17 23:47] LABS: ARTERIAL BLOOD FIO2 40%
[2019-08-17 23:48] LABS: INTERNATIONAL RATION (INR) 2.42; PARTIAL THROMBOPLASTIN TIME 43.4 SEC (23.5-35.8); PROTHROMBIN TIME 26.8 SEC (11.4-15.4)
[2019-08-18 00:02] LABS: CARBON DIOXIDE 14 mmol/L (22-30); CHLORIDE 109 mmol/L (98-107); GLUCOSE 172 mg/dL (75-110); POTASSIUM 3.3 mmol/L (3.6-5.0)
[2019-08-18 00:11] LABS: ANION GAP 23 (5-19); BLOOD UREA NITROGEN 95 mg/dL (7-20); CALCIUM 6.7 mg/dL (8.4-10.2)
[2019-08-18] MEDS ORDERED: CALCIUM CHLORIDE 10% PF/INJ 1000 MG/10 ML SDV IV SCH (00:15)
[2019-08-18] MEDS ORDERED: POTASSI CL 20 MEQ/50 ML RIDER 20 MEQ/50 ML RTUPB IV ONE (00:39)
[2019-08-18] MEDS: DEXTROSE 5%-WATER 250 ML with NOREPINEPHRINE BITARTRATE 4 MG IV PRN ×14 (00:41→22:45)
[2019-08-18] MEDS ORDERED: RINGERS SOLUTION,LACTATED 1,000 ML IV PRN (00:41)
[2019-08-18] MEDS ORDERED: CALCIUM CHLORIDE 10% PF/INJ 1000 MG/10 ML SDV IV PRN (00:54)
[2019-08-18] MEDS ORDERED: CALCIUM CHLORIDE IV ONE (01:00)
[2019-08-18] MEDS ORDERED: NORMAL SALINE IV ONE (01:00)
[2019-08-18] MEDS ORDERED: CALCIUM GLUCONATE 1000 MG/10 ML INJ IV ONE ×2 (01:36→01:57)
--- NOTE | 2019-08-18 01:37 | RADIOLOGY REPORT (SQ) ---
EXAM DESCRIPTION: CT ABDOMEN PELVIS WITHOUT IV CONTRAST, CT CHEST WITHOUT IV CONTRAST COMPLETED DATE/TME: 08/18/2019 00:00 CLINICAL HISTORY: 73 years Male lactatemia; r/o intra-abdominal pathology COMPARISON: 06/06/2017 TECHNIQUE: Contiguous axial images obtained through the abdomen and pelvis without IV contrast. Reformatted images obtained. This exam was performed according to our department optimization program which includes automated exposure control, adjustment of the mA and/or kv according to patient size and/or use of iterative reconstruction technique. FINDINGS: Chest: Endotracheal nasogastric tubes are in place. Esophagus is filled with fluid. Ectatic aorta with the proximal descending thoracic aorta measuring 3.6 cm. Calcification in aorta and in the coronary arteries. There are diffuse bilateral alveolar infiltrates Bilateral small effusions. Hilar regions are suboptimally evaluated. Suspect mild hilar adenopathy. Abdomen pelvis: Heterogeneous liver with a mildly nodular contour. The spleen and pancreas appear unremarkable. No adrenal masses. The kidneys appear unremarkable. No hydronephrosis or definite ureteral calculi. The gallbladder is present with mild wall thickening suggested. Cholecystitis is not excluded. No aneurysmal dilatation of the aorta. No bowel obstruction. Wall thickening throughout the colon consistent with colitis. Diverticulosis without diverticulitis. Small amount of fluid in the paracolic gutters and in the pelvis. Unremarkable appendix. Guy catheter in the decompressed urinary bladder IMPRESSION: Wall thickening throughout the colon suggesting colitis with a small amount of fluid in the paracolic gutters and in the pelvis Diffuse bilateral pulmonary infiltrates with small effusions. Findings may reflect pulmonary edema. Pneumonia is not excluded Wall thickening in the gallbladder which is nonspecific. Cholecystitis is not excluded Extensive vascular calcification
[2019-08-18] MEDS ORDERED: CALCIUM GLUCONATE 1000 MG/10 ML INJ IV PRN (02:23)
[2019-08-18] MEDS ORDERED: CALCIUM GLUCONATE 2,000 MG in DEXTROSE 5%-WATER 100 ML IV ONE (02:30)
[2019-08-18] MEDS ORDERED: GENTAMICIN SULFATE INJ 80 MG/2 ML VIAL IV ONE (02:45)
[2019-08-18] MEDS: NORMAL SALINE 100 ML with PANTOPRAZOLE SODIUM 80 MG IV PRN ×2 (03:02)
[2019-08-18] MEDS ORDERED: GENTAMICIN SULFATE INJ 80 MG/2 ML VIAL IV PRN (03:18)
[2019-08-18] MEDS ORDERED: WATER IV ONE (03:30)
[2019-08-18] MEDS ORDERED: GENTAMICIN SULFATE IV ONE (03:30)
[2019-08-18] MEDS ORDERED: DEXTROSE 5% IV ONE (03:30)
[2019-08-18] MEDS ORDERED: WATER FOR INJECTION,STERILE 1,000 ML with SODIUM BICARBONATE 150 MEQ IV PRN ×2 (03:32)
[2019-08-18] MEDS ORDERED: GENTAMICIN SULFATE/PF INJ 20 MG/2 ML VIAL ONE (03:39)
[2019-08-18] MEDS ORDERED: GENTAMICIN SULFATE INJ 80 MG/2 ML VIAL ONE (03:39)
[2019-08-18] MEDS ORDERED: SODIUM BICARBONATE 8.4% INJ 50 MEQ/50 ML DISP.SYRIN ONE ×2 (04:15→04:22)
[2019-08-18] MEDS ORDERED: DEXTROSE 5%-WATER 1000 ML 1,000 ML with SODIUM BICARBONATE 150 MEQ IV PRN ×4 (04:30→04:50)
--- NOTE | 2019-08-18 04:45 | Progress Note ---
Provider Note Provider Note: Date/Time: 08/17/2019 20:00 PM PROCEDURE: Arterial line insertion Indication: Septic shock Patient placed in correct procedural position followed by prepping and draping in usual sterile fashion. Using ultrasound, the right radial artery was identified and free of thrombus. 3 mL of 1% lidocaine was utilized to a nesthetize the site. A preloaded 18-gauge needle with catheter and wire was visualized entering the right radial artery with ultrasound, noting a flash of blood. The guidewire was then advanced through the needle into the right radial artery and confirmed to be in the artery in 2 views on ultrasound. The 18-gauge catheter was then deployed over the needle and wire into the right radial artery. The guidewire and needle were then removed, noting pulsatile blood from the catheter. The transducer tubing was hooked up to the arterial catheter, the catheter was sutured into place, a Biopatch was applied, and a sterile occlusive transparent dressing was then applied. Good arterial waveform noted on the monitor. Patient tolerated the procedure well. EBL 3 mL.
[2019-08-18] MEDS: AMPICILLIN SODIUM 2 GM in NORMAL SALINE 100 ML IV SCH ×3 (05:14→22:05)
[2019-08-18] MEDS: LEVETIRACETAM 500 MG/NACL-ISO 500 MG/100 ML RTUPB IV SCH ×2 (05:15→17:31)
[2019-08-18] MEDS ORDERED: NORMAL SALINE INJ/PF 0.9% 10 ML SDV IV PRN (06:11)
[2019-08-18 06:26] LABS: HEMATOCRIT 25.2 % (37.9-51.0); MEAN CORPUSCULAR HGB CONC 33.7 g/dL (32.0-36.0); MEAN CORPUSCULAR VOLUME 113 fl (80-97); PLATELET COUNT 138 10^3/uL (150-450); RED BLOOD COUNT 2.23 10^6/uL (4.35-5.55); RED CELL DISTRIBUTION WIDTH 15.4 % (11.5-14.0); WHITE BLOOD COUNT 13.4 10^3/uL (4.0-10.5)
[2019-08-18 06:43] LABS: FIBRINOGEN 275 mg/dL (209-497)
[2019-08-18 06:48] LABS: ALBUMIN 2.4 g/dL (3.5-5.0); ALKALINE PHOSPHATASE 72 U/L (38-126); ANION GAP 18 (5-19); ASPARTATE AMINO TRANSFERASE 97 U/L (17-59); BILIRUBIN,DIRECT 1.6 mg/dL (0.0-0.4); BILIRUBIN,TOTAL 2.4 mg/dL (0.2-1.3); BLOOD UREA NITROGEN 90 mg/dL (7-20); CALCIUM 7.1 mg/dL (8.4-10.2); CARBON DIOXIDE 17 mmol/L (22-30); CHLORIDE 104 mmol/L (98-107); GLUCOSE 309 mg/dL (75-110); PHOSPHORUS 4.4 mg/dL (2.5-4.5); POTASSIUM 3.8 mmol/L (3.6-5.0); TOTAL PROTEIN 5.3 g/dL (6.3-8.2); TRIGLYCERIDES 122 mg/dL (<150)
--- NOTE | 2019-08-18 06:59 | Operative Report ---
Bedside Procedure - History of Present Illness Indication for Procedure: septic shock Date: 08/17/19 Provider: MAXWELL DE LA CRUZ - Central Line Right Internal jugular Time completed: 06:00 Consent obtained: Yes Central line pre-insertion: Sterile PPE donned, Chloraprep applied, Sterile drapes applied Central line size (Fr.): 7 Central line lumen type: Triple Anesthetic type: 1% Lidocaine mL's of anesthesia: 3 Ultrasound guided: Yes CM at insertion site: 20 - Line was retracted 1-2 cm which placed gardenia 20cm marline at the skin after x-ray obtained during procedure Line secured with sutures: Yes Central line post-insertion: Blood return from lumens, Biopatch applied, Sutured, Sterile dressing applied, Position confirmed w/ CXR Number of attempts: 1 Complications: No Notes: 08/18/19 06:53 Patient placed in proper procedural position followed by prepping and draping in usual sterile fashion. Using ultrasound, the right internal jugular vein was identified and is free of thrombus from the angle of the right mandible down to the clavicle. The skin and subcutaneous tissue was anesthetized with 3 mL of 1% lidocaine. Next, a 20-gauge introducer needle was visualized entering the right internal jugular vein while attached to a syringe under negative pressure for which a brisk return of blood was obtained. The syringe was detached from the needle observing a slow dripping of blood from the introducer needle. A guidewire was then advanced through the needle into the right internal jugular vein and the needle was removed. The guidewire was confirmed to be in the right internal jugular vein and 2 views utilizing ultrasound. A small skin stab incision was made followed by dilation of the subcutaneous tissue. The dilator was removed and a 7 Austrian 20 cm catheter was loaded onto the wire and passed into the right internal jugular vein, subsequently removing the wire and again, noting slow dripping of blood from the distal lumen of the central venous catheter. All lumens aspirated and flushed easily with good blood return. A Biopatch was applied, the catheter was sutured into place, and a sterile transparent occlusive dressing was applied. Chest x-ray confirms the central venous catheter to be in the correct place with no evidence of pneumothorax. EBL 5 mL. Patient tolerated the procedure well.
[2019-08-18 07:08] LABS: INTERNATIONAL RATION (INR) 2.01; PROTHROMBIN TIME 23.1 SEC (11.4-15.4)
[2019-08-18 07:09] LABS: HEMOGLOBIN 8.5 g/dL (13.5-17.0)
[2019-08-18 07:24] LABS: ABSOLUTE LYMPHOCYTES# (MANUAL) 0.8 10^3/uL (0.5-4.7); ABSOLUTE MONOCYTES # (MANUAL) 0.7 10^3/uL (0.1-1.4); BASOPHILS % (MANUAL) 0 % (0-2); EOSINOPHILS % (MANUAL) 0 % (0-6); LYMPHOCYTES % (MANUAL) 6 % (13-45); MONOCYTES % (MANUAL) 5 % (3-13); NUCLEATED RED BLOOD CELLS 3 /100 WBC (0); SEGMENTED NEUTROPHILS % (MAN) 71 % (42-78); TOTAL CELLS COUNTED 100
[2019-08-18 07:25] LABS: ANISOCYTOSIS SLIGHT; PLATELET COMMENT DECREASED
[2019-08-18 07:28] LABS: MYELOCYTES % (MANUAL) 3 % (0)
[2019-08-18 07:29] LABS: BAND NEUTROPHILS % (MANUAL) 15 % (3-5)
[2019-08-18 07:32] LABS: ARTERIAL BLOOD BASE EXCESS -7.1 mmol/L; ARTERIAL BLOOD H2CO3 0.88 mmol/L (1.05-1.35); ARTERIAL BLOOD O2 SATURATION 95.9 % (94-98); ARTERIAL BLOOD PCO2 29.3 mmHg (35-45); ARTERIAL BLOOD PH 7.38 (7.35-7.45); ARTERIAL BLOOD PO2 80.5 mmHg (80-100); ARTERIAL BLOOD TOTAL CO2 17.9 mmol/L (23-27)
[2019-08-18 07:34] LABS: ARTERIAL BLOOD FIO2 40%
[2019-08-18] MEDS ORDERED: NORMAL SALINE 250 ML IV PRN ×4 (07:56→19:09)
[2019-08-18] MEDS ORDERED: INSULIN REG, HUMAN 100 UNIT/ML 3 ML VIAL (PYX) SUBCUT SCH ×2 (08:00)
[2019-08-18] MEDS: MINERAL OIL/PETROLATUM,WHITE OPH OINT 3.5 GM OU SCH ×3 (08:47→22:05)
[2019-08-18] MEDS: INSULIN REG, HUMAN 100 UNIT/ML 3 ML VIAL (PYX) SUBCUT SCH ×4 (08:53→20:09)
--- NOTE | 2019-08-18 09:20 | RADIOLOGY REPORT (SQ) ---
EXAM DESCRIPTION: CHEST SINGLE VIEW COMPLETED DATE/TIME: 08/18/2019 6:27 am REASON FOR STUDY: aspiration COMPARISON: AP view of the chest from 08/17/2019. EXAM PARAMETERS: NUMBER OF VIEWS: One view. TECHNIQUE: An AP view of the chest was obtained. RADIATION DOSE: NA LIMITATIONS: None. FINDINGS: LUNGS AND PLEURA: Stable bilateral multifocal parenchymal opacities. The contour of the d escending thoracic aorta remains obscured. There is no pneumothorax. MEDIASTINUM AND HILAR STRUCTURES: Stable mediastinal and hilar contours. HEART AND VASCULAR STRUCTURES: Stable cardiac silhouette. BONES: No acute findings. HARDWARE: The tip of the right IJ central venous catheter with projects within the right atrium. The tip of the endotracheal tube projects 5.2 cm above the yashira. The tip and side hole of the enteric tube project past the gastroesophageal junction and within the gastric lumen. OTHER: No other finding. IMPRESSION: Unchanged radiographic appearance of the chest. TECHNICAL DOCUMENTATION: JOB ID: [id number] [employer]- All Rights Reserved Reading location - IP/workstation name: [email or web address]
[2019-08-18 09:29] LABS: PATH REVIEW PATHOLOGIST REVIEWED
[2019-08-18 09:29] LABS: PATH REVIEW PATHOLOGIST REVIEWED
[2019-08-18] MEDS ORDERED: CEFEPIME 2 GM/D5W RTU 2 GM/50 ML RTUPB IV SCH (10:00)
[2019-08-18] MEDS: WATER FOR INJECTION,STERILE 1,000 ML with SODIUM BICARBONATE 125 MEQ IV PRN ×4 (10:18→18:37)
[2019-08-18] MEDS: CEFEPIME HCL 2 GM in DEXTROSE 5%-WATER 50 ML IV SCH ×2 (10:19→22:04)
[2019-08-18] MEDS: THIAMINE HCL 500 MG in NORMAL SALINE 250 ML IV SCH ×2 (10:19→22:04)
[2019-08-18] MEDS: DEXAMETHASONE SOD PHOS INJ 10 MG/1 ML VIAL IV SCH ×2 (10:19→22:02)
[2019-08-18] MEDS ORDERED: PHYTONADIONE INJ 10 MG/1 ML AMPULE IV ONE (10:30)
[2019-08-18] MEDS: VANCOMYCIN HCL 500 MG in DEXTROSE 5%-WATER 100 ML IV SCH (12:34)
[2019-08-18 12:56] LABS: ARTERIAL BLOOD BASE EXCESS -4.5 mmol/L; ARTERIAL BLOOD FIO2 40%; ARTERIAL BLOOD H2CO3 0.88 mmol/L (1.05-1.35); ARTERIAL BLOOD PCO2 29.1 mmHg (35-45); ARTERIAL BLOOD PH 7.43 (7.35-7.45); ARTERIAL BLOOD PO2 86.7 mmHg (80-100); ARTERIAL BLOOD TOTAL CO2 19.9 mmol/L (23-27)
[2019-08-18 13:03] LABS: ANION GAP 15 (5-19); BLOOD UREA NITROGEN 88 mg/dL (7-20); CARBON DIOXIDE 20 mmol/L (22-30); CHLORIDE 99 mmol/L (98-107); PHOSPHORUS 4.8 mg/dL (2.5-4.5); POTASSIUM 4.2 mmol/L (3.6-5.0)
[2019-08-18 13:07] LABS: CALCIUM 6.6 mg/dL (8.4-10.2); GLUCOSE 409 mg/dL (75-110)
--- NOTE | 2019-08-18 13:59 | RADIOLOGY REPORT (SQ) ---
EXAM DESCRIPTION: CT HEAD WITHOUT COMPLETED DATE/TIME: 08/18/2019 1:38 pm REASON FOR STUDY: coma COMPARISON: CT of the head without contrast from 08/17/2019. TECHNIQUE: Axial images acquired through the brain without intravenous contrast. Images reviewed wi th bone, brain and subdural windows. Additional sagittal and coronal reconstructions were generated. Images stored on PACS. All CT scanners at this facility use dose modulation, iterative reconstruction, and/or weight based d osing when appropriate to reduce radiation dose to as low as reasonably achievable (ALARA). [facility]: Dose Right [facility]: CareDose [facility]: Dose Right [facility]: Teradose 4D [facility]: [employer] RADIATION DOSE: CT Rad equipment meets quality standard of care and radiation dose reduction techniq ues were employed. CTDIvol: 48.6 mGy. DLP: 880 mGy-cm. LIMITATIONS: None. FINDINGS: The confluent areas of hypoattenuation within the supratentorial periventricular and subco rtical white matter are unchanged and could represent the sequela of chronic microvascular ischemia. There is no acute intracranial hemorrhage, vascular territorial infarct, extra-axial fluid collectio n, mass effect or midline shift. There is no effacement of the cerebral sulci or basal subarachnoid cisterns. The cain-white matter differentiation is preserved. The caliber the ventricles is concord ant with the degree of sulcation and unchanged from the prior CT. There are endotracheal and or enteric tubes in place. The globes are aphakic. The paranasal sinuses are clear. There is no fracture of the calvarium. IMPRESSION: No acute intracranial abnormality. EVIDENCE OF ACUTE STROKE: NO. COMMENT: Quality ID # [id number]: Final reports with documentation of one or more dose reduction techniques (e.g., Automated exposure control, adjustment of the mA and/or kV according to patient size, use of iterative reconstruction technique) TECHNICAL DOCUMENTATION: JOB ID: [id number] [employer]- All Rights Reserved Reading location - IP/workstation name: [email or web address]
[2019-08-18] MEDS: NORMAL SALINE 500 ML with OCTREOTIDE ACETATE 500 MCG IV PRN ×2 (14:20)
[2019-08-18] MEDS ORDERED: INFLUENZA QUAD (6MOS+) 2019-20 VAC 0.5 ML SYR IM ONE (14:41)
[2019-08-18] MEDS: FLUDROCORTISONE ACETATE 0.1 MG TABLET NG SCH (14:42)
--- NOTE | 2019-08-18 14:59 | NEURO WORKBENCH EEG REPORT ---
EEG Report Patient: Peyman Pollard ID: [id number] Referring Doctor: Luisito Zavala Date: 08/18/2019 Reason for study: Evaluate Epileptiform activity Medications: Vancomycin, Acyclovir, Cefepime, Ampicillin, Keppra, Decadron, Thiamine, Phytonadione, Florinef, Propofol. History: This is a 73 year old male with a history of CAD, HTN, DM2, Liver disease, chronic alcohol use, arthritis, found down at home encephalopathic and hypothermic, with subsequent aspiration. Patient is now intubated with body temperature of 37.4 C. This is a repeat EEG requested for evaluation of epileptiform activity. EEG Interpretation This EEG was recorded in the ICU and patient is intubated. There were no apparent spontaneous eye openings or closings, but the orthodontic lab technician manually opened and closed the patients eyes multiple times. The backgound EEG typically shows diffuse polymorphic low amplitude polymorphic 1-3 Hz delta activity. There are periods of global amplitude suppression and attenuation, but this is not a burst-suppression pattern. With eye closure there is no occipital dominant rhythm present. There were no obvious asymmetries in amplitude or frequencies. Photic stimulation was done and photic driving was not noted. There are frequent Generalized Periodic Discharges present, often poorly formed. There were no seizures. The EKG showed a regular rhythm with rates typically in the 80-90 range. EEG Impression This EEG is similar to the prior EEG done on 08/17/2019, with less faster frequencies present which could be due to sedation from medications such as propofol. It is noted that the patient is now normothermic while hypothermic on the prior recording. This EEG is consistent with diffuse cerebral dysfunction which is non-specific for etiology. GPDs are of uncertain clinical significance, but in general are associated with an increased risk of seizures, although no seizures occurred during this recording. GPDs can be seen in a variety of clinical settings, including but not limited to postanoxic coma, after convulsive status epilepticus, with metabolic derangements, in Creutzfeldt-Nico disease, during Carlo encephalopathy, from medication toxicity, and in end- stage Alzheimers disease. Clinical correlation is needed. Long-term EEG monitoring would be advised or additional repeat routine EEGs if long-term monitoring is not available. INTERPRETING NEUROLOGIST: Nikolai Hess MD Board certified by the [place] [employer] in Neurology, Clinical Neurophysiology, and Sleep Medicine [facility]ITAL[facility]ase[facility]
[2019-08-18 16:36] LABS: INTERNATIONAL RATION (INR) 1.81; PROTHROMBIN TIME 21.2 SEC (11.4-15.4)
[2019-08-18 16:45] LABS: MEAN CORPUSCULAR HEMOGLOBIN 37.1 pg (27.0-33.4); MEAN CORPUSCULAR HGB CONC 33.2 g/dL (32.0-36.0); MEAN CORPUSCULAR VOLUME 112 fl (80-97); RED BLOOD COUNT 2.06 10^6/uL (4.35-5.55); WHITE BLOOD COUNT 21.1 10^3/uL (4.0-10.5)
[2019-08-18 17:02] LABS: HEMOGLOBIN 7.6 g/dL (13.5-17.0); PLATELET COUNT 91 10^3/uL (150-450)
--- NOTE | 2019-08-18 17:18 | RADIOLOGY REPORT (SQ) ---
EXAM DESCRIPTION: U/S ABDOMEN COMPLETE W/DOPPLER COMPLETED DATE/TIME: 08/18/2019 5:00 pm REASON FOR STUDY: Renal failure, hyperbilirubinemia COMPARISON: None. TECHNIQUE: Dynamic and static grayscale images acquired of the abdomen and recorded on PACS. Additio nal selected color Doppler and spectral images recorded. Note: Study does not meet criteria for complete doppler/duplex scan LIMITATIONS: None. FINDINGS: PANCREAS: No mass in the head of the pancreas. The body and tail were obscured by gas. LIVER: Increased echogenicity. Slightly nodular appearance. There is a small amount of ascites arou nd the liver. LIVER VASCULATURE: Normal directional flow of the main portal vein and hepatic veins. GALLBLADDER: There is sludge in the gallbladder. The gallbladder wall is slightly thickened at 5 mm. ULTRASOUND-DETECTED GRIGGS'S SIGN: Not applicable. INTRAHEPATIC DUCTS AND COMMON DUCT: Not visible. INFERIOR VENA CAVA: Normal flow. AORTA: No aneurysm. The distal aorta was obscured by gas. RIGHT KIDNEY: Normal size, 11 cm. Normal echogenicity. No solid or suspicious masses. No hydro nephrosis. No calcifications. LEFT KIDNEY: Normal size, 11.2 cm. Normal echogenicity. No solid or suspicious masses. No hydr onephrosis. No calcifications. SPLEEN: Mild splenomegaly. There is some free fluid around the spleen. PERITONEAL AND PLEURAL SPACES: There is a small amount of ascites around the liver and spleen. OTHER: No other significant finding. IMPRESSION: Hepatic steatosis. Small amount of ascites. There is sludge in the gallbladder with th ickening of the wall. Correlate clinically for cholecystitis. There is mild splenomegaly. TECHNICAL DOCUMENTATION: JOB ID: [id number]- All Rights Reserved Reading location - IP/workstation name: [email or web address]
[2019-08-18] MEDS: NORMAL SALINE IV SCH ×2 (17:30→22:04)
[2019-08-18] MEDS: INSULIN GLARGINE,HUM.REC.ANLOG 1,000 UNIT/10 ML VIAL SUBCUT SCH (17:30)
[2019-08-18] MEDS: ACYCLOVIR SODIUM IV SCH (17:30)
[2019-08-18 17:55] LABS: ABSOLUTE LYMPHOCYTES# (MANUAL) 1.5 10^3/uL (0.5-4.7); ABSOLUTE MONOCYTES # (MANUAL) 0.4 10^3/uL (0.1-1.4); ANISOCYTOSIS SLIGHT; BAND NEUTROPHILS % (MANUAL) 26 % (3-5); BASOPHILS % (MANUAL) 0 % (0-2); EOSINOPHILS % (MANUAL) 0 % (0-6); LYMPHOCYTES % (MANUAL) 7 % (13-45); METAMYELOCYTES % (MANUAL) 18 % (0-1); MONOCYTES % (MANUAL) 2 % (3-13); MYELOCYTES % (MANUAL) 3 % (0); PROMYELOCYTES % (MANUAL) 3 % (0); SEGMENTED NEUTROPHILS % (MAN) 41 % (42-78); TOTAL CELLS COUNTED 100
[2019-08-18 17:56] LABS: HYPOCHROMASIA 1+
[2019-08-18 17:59] LABS: PLATELET COMMENT DECREASED
[2019-08-18 18:52] LABS: INTERNATIONAL RATION (INR) 1.94; PARTIAL THROMBOPLASTIN TIME 40.9 SEC (23.5-35.8); PROTHROMBIN TIME 22.4 SEC (11.4-15.4)
--- NOTE | 2019-08-18 19:34 | PDOC CRITICAL CARE PROG REPORT ---
General Date:: 08/18/19 ICU Day:: 2 Ventilator Day:: 2 Hospital Day:: 2 Resuscitation Status: Full Code Medical Power of Food Service: Daughter: Aylin Events in the past 12 to 24 Hours:: 08.18.2019: Patient was transferred from the emergency room where he had a further change in his encephalopathy. He appeared to have nystagmus with blinking and was less responsive. He was also noted to be actively vomiting with emesis in his throat. He was hypoxic and required intubation. He has been quite ill throughout the evening. CT scan of the abdomen and pelvis was done which was revealing only for what appeared to be colitis. There were no sources of sepsis other than the possible colitis. CT of the chest shows mixed interstitial alveolar pattern consistent with aspiration however pneumonia may also be present. He remained coagulopathic and was given blood products and vitamin K. His INR is still elevated. Our hope was to perform LP to rule out meningitis. He has been placed on broad-spectrum antibiotics and change from Rocephin to cefepime to hernandez more gram-negative coverage and to cover meningitis. The vomitus originally appeared dark and we were concerned about a upper GI bleed. However the hemoglobin was actually improved from admission. It is slightly lower today but he has been given volume because of his hypotension and his dehydrated state. He was volume responsive and passive leg raise improved blood pressure. The right femoral central venous catheter was removed after a right IJ central venous catheter was placed successfully by the nighttime critical ca re DOROTHEA. He also has a radial arterial catheter. Review of systems relevant to events:: 08.18.2019: Originally on high-dose vasopressor therapy including vasopressin these requirements are now improved and the Levophed has gone from 45 down to 20-25. He is starting to have some response to noxious stimulus but is in a comatose state without any sedation. Vital signs were reviewed and evaluated. Urine output has been decreased and scant. Ultrasound of the IVC showed u nderfilling and inappropriate tachycardic response on echo with an intact ejection fraction. He had an EEG which showed GPD's however he was hypothermic at the time and a repeat EEG is ongoing at the time of this dictation. He has been taken off sedation and has been unresponsive but does have an intact respiratory drive. He was also started on meningitis dosed Decadron and Florinef for mineral ocorticoid support. Reason for ICU Addmission:: Sepsis with shock, encephalopathy - Medications: Medications reviewed and adjusted accordingly: Yes Vasopressors:: 1.8: Levophed at 25 mcg; vasopressin at 0.03 units/min. Physical Exam Vital Signs: Temp Pulse Resp BP Pulse Ox 93.6 F L 106 H 18 104/72 98 08/17/19 18:57 08/18/19 06:57 08/18/19 07:01 08/18/19 07:01 08/18/19 07:25 Intake & Output 08/17/19 08/18/19 08/19/19 06:59 06:59 06:59 Intake Total 5194 Output Total 75 Balance 5119 Weight 66.8 kg Weight/Height Weight 66.8 kg Height 5 ft 3 in General appearance: PRESENT: no acute distress, disheveled, well-developed Exam: Intubated ill, nontoxic 73-year-old male no active distress comatose and unresponsive except to deep noxious stimuli. Eye exam: PRESENT: conjunctival injection, conjunctiva pink, other - Pupils miotic, slow to react. ABSENT: nystagmus Ear exam: PRESENT: normal external ear exam Mouth exam: PRESENT: dry mucosa Neck exam: PRESENT: other - Right IJ CVC intact, no bleeding or hematoma. ABSE NT: JVD, meningismus Respiratory exam: PRESENT: clear to auscultation yanet, other - Has spontaneous respiratory effort. ABSENT: rales, rhonchi, wheezes Cardiovascular exam: PRESENT: RRR, tachycardia, other - Critical care basic echo and ultrasound done. IVC is underfilled with mild respirophasic changes. Ventricular function on the left is intact and he has hyperdynamic state. The right ventricle is slightly dilated in the subcostal view and functional.. ABSENT: +S1, +S2 Pulses: ABSENT: normal dorsalis pedis pul Vascular exam: PRESENT: normal capillary refill. ABSENT: pallor GI/Abdominal exam: PRESENT: hypoactive bowel sounds, soft. ABSENT: distended, guarding, mass, organolmegaly, rebound, tenderness Rectal exam: PRESENT: deferred Gentrourinary exam: PRESENT: indwelling catheter. ABSENT: erythema, scrotal swelling Extremities exam: ABSENT: pedal edema, tenderness Musculoskeletal exam: ABSENT: deformity, dislocation Neurological exam: PRESENT: altered, other - Patient is comatose. FOUR score: E: 1 ; M: 1 BS: 4 R: 1=7 Babinski's downgoing. There is no piloerection. No nystagmus. Patient does have a response to noxious stimulus with eye grimace and partial opening. There is no roving nystagmus. He is breathing above the ventilator. Focused psych exam: PRESENT: other - Comatose Skin exam: PRESENT: dry, intact, vesicles, warm. ABSENT: cyanosis, mottled, pallor, petechiae, rash, urticaria Additional comments: No decubiti Laboratory/Radiographs Laboratory Results: 08/18/19 06:15 08/18/19 06:15 08/17/19 08/17/19 08/17/19 10:42 10:42 10:42 WBC RBC Hgb Hct MCV MCH MCHC RDW Plt Count Seg Neutrophils % Carbonic Acid HCO3/H2CO3 Ratio ABG pH ABG pCO2 ABG pO2 ABG HCO3 ABG O2 Saturation ABG Base Excess FiO2 Sodium 148.3 H Potassium 2.9 L* Chloride 111 H Carbon Dioxide 21 L Anion Gap 16 BUN 115 H Creatinine 2.98 H Est GFR ( Amer) 25 L Glucose 137 H Serum Osmolality Lactic Acid Calcium 7.7 L Ionized Calcium Corina Phosphorus 6.3 H Magnesium 3.3 H Total Bilirubin 2.7 H AST 100 H Alkaline Phosphatase 90 Ammonia Total Protein 5.5 L Albumin 2.2 L Triglycerides Amylase 146 H Lipase 895.4 H TSH 3.11 Free T4 1.68 Free T3 pg/mL 1.57 L Urine Color Urine Appearance Urine pH Ur Specific Covel Urine Protein Urine Glucose (UA) Urine Ketones Urine Blood Urine RBC (Auto) Blood Type Antibody Screen 08/17/19 08/17/19 08/17/19 10:42 10:45 10:53 WBC RBC Hgb Hct MCV MCH MCHC RDW Plt Count Seg Neutrophils % Carbonic Acid 0.98 L HCO3/H2CO3 Ratio 21:1 ABG pH 7.43 ABG pCO2 32.7 L ABG pO2 222.2 H ABG HCO3 21.1 ABG O2 Saturation 99.5 H ABG Base Excess -2.6 FiO2 3L Sodium Potassium Chloride Carbon Dioxide Anion Gap BUN Creatinine Est GFR ( Amer) Glucose Serum Osmolality Lactic Acid 4.3 H Calcium Ionized Calcium Corina Phosphorus Magnesium Total Bilirubin AST Alkaline Phosphatase Ammonia Total Protein Albumin Triglycerides 116 Amylase Lipase TSH Free T4 Free T3 pg/mL Urine Color Urine Appearance Urine pH Ur Specific Covel Urine Protein Urine Glucose (UA) Urine Ketones Urine Blood Urine RBC (Auto) Blood Type Antibody Screen 08/17/19 08/17/19 08/17/19 10:58 11:06 14:45 WBC 10.4 RBC 2.94 L Hgb 11.1 L Hct 33.0 L MCV 112 H MCH 37.8 H MCHC 33.7 RDW 15.1 H Plt Count 65 L Seg Neutrophils % 90.4 H Carbonic Acid HCO3/H2CO3 Ratio ABG pH ABG pCO2 ABG pO2 ABG HCO3 ABG O2 Saturation ABG Base Excess FiO2 Sodium Potassium Chloride Carbon Dioxide Anion Gap BUN Creatinine Est GFR ( Amer) Glucose Serum Osmolality Lactic Acid 3.3 H Calcium Ionized Calcium Corina Phosphorus Magnesium Total Bilirubin AST Alkaline Phosphatase Ammonia Total Protein Albumin Triglycerides Amylase Lipase TSH Free T4 Free T3 pg/mL Urine Color BROWN Urine Appearance TURBID Urine pH 5.0 Ur Specific Covel 1.024 Urine Protein NEGATIVE Urine Glucose (UA) 50 H Urine Ketones NEGATIVE Urine Blood SMALL H Urine RBC (Auto) 0 Blood Type Antibody Screen 08/17/19 08/17/19 08/17/19 14:45 17:12 17:50 WBC RBC Hgb Hct MCV MCH MCHC RDW Plt Count Seg Neutrophils % Carbonic Acid 0.83 L HCO3/H2CO3 Ratio 21:1 ABG pH 7.44 ABG pCO2 27.7 L ABG pO2 39.1 L* ABG HCO3 18.2 L ABG O2 Saturation 76.7 L ABG Base Excess -4.7 FiO2 52L Sodium Potassium Chloride Carbon Dioxide Anion Gap BUN Creatinine Est GFR ( Amer) Glucose Serum Osmolality Lactic Acid 4.5 H Calcium Ionized Calcium Corina Phosphorus Magnesium Total Bilirubin AST Alkaline Phosphatase Ammonia 18.0 Total Protein Albumin Triglycerides Amylase Lipase TSH Free T4 Free T3 pg/mL Urine Color Urine Appearance Urine pH Ur Specific Covel Urine Protein Urine Glucose (UA) Urine Ketones Urine Blood Urine RBC (Auto) Blood Type Antibody Screen 08/17/19 08/17/19 08/17/19 19:18 19:18 21:00 WBC 9.3 RBC 3.48 L Hgb 13.1 L Hct 39.3 MCV 113 H MCH 37.7 H MCHC 33.4 RDW 15.5 H Plt Count 106 L Seg Neutrophils % Carbonic Acid 1.02 L HCO3/H2CO3 Ratio 13:1 ABG pH 7.23 L ABG pCO2 34.0 L ABG pO2 98.2 ABG HCO3 13.9 L ABG O2 Saturation 96.4 ABG Base Excess -12.6 FiO2 40% Sodium Potassium Chloride Carbon Dioxide Anion Gap BUN Creatinine Est GFR ( Amer) Glucose Serum Osmolality Lactic Acid Calcium Ionized Calcium Corina Phosphorus Magnesium Total Bilirubin AST Alkaline Phosphatase Ammonia Total Protein Albumin Triglycerides Amylase Lipase TSH Free T4 Free T3 pg/mL Urine Color Urine Appearance Urine pH Ur Specific Covel Urine Protein Urine Glucose (UA) Urine Ketones Urine Blood Urine RBC (Auto) Blood Type O POSITIVE Antibody Screen NEGATIVE 08/17/19 08/17/19 08/17/19 23:29 23:29 23:29 WBC RBC Hgb Hct MCV MCH MCHC RDW Plt Count Seg Neutrophils % Carbonic Acid 1.14 HCO3/H2CO3 Ratio 12:1 ABG pH 7.20 L* ABG pCO2 37.8 ABG pO2 68.4 L ABG HCO3 14.4 L ABG O2 Saturation 89.7 L ABG Base Excess -12.7 FiO2 40% Sodium 145.5 H Potassium 3.3 L Chloride 109 H Carbon Dioxide 14 L Anion Gap 23 H BUN 95 H D Creatinine 2.89 H Est GFR ( Amer) 26 L Glucose 172 H Serum Osmolality Lactic Acid 8.9 H Calcium 6.7 L* Ionized Calcium Corina 0.92 L Phosphorus Magnesium Total Bilirubin AST Alkaline Phosphatase Ammonia Total Protein Albumin Triglycerides Amylase Lipase TSH Free T4 Free T3 pg/mL Urine Color Urine Appearance Urine pH Ur Specific Covel Urine Protein Urine Glucose (UA) Urine Ketones Urine Blood Urine RBC (Auto) Blood Type Antibody Screen 08/18/19 08/18/19 08/18/19 03:20 03:20 06:15 WBC RBC Hgb Hct MCV MCH MCHC RDW Plt Count Seg Neutrophils % Carbonic Acid HCO3/H2CO3 Ratio ABG pH ABG pCO2 ABG pO2 ABG HCO3 ABG O2 Saturation ABG Base Excess FiO2 Sodium Potassium Chloride Carbon Dioxide Anion Gap BUN Creatinine Est GFR ( Amer) Glucose Serum Osmolality 334 H Lactic Acid 8.2 H Calcium Ionized Calcium Corina Phosphorus Magnesium Total Bilirubin AST Alkaline Phosphatase Ammonia 20.2 Total Protein Albumin Triglycerides Amylase Lipase TSH Free T4 Free T3 pg/mL Urine Color Urine Appearance Urine pH Ur Specific Covel Urine Protein Urine Glucose (UA) Urine Ketones Urine Blood Urine RBC (Auto) Blood Type Antibody Screen 08/18/19 08/18/19 08/18/19 06:15 06:15 07:15 WBC 13.4 H RBC 2.23 L Hgb 8.5 L D Hct 25.2 L MCV 113 H MCH 38.0 H MCHC 33.7 RDW 15.4 H Plt Count 138 L Seg Neutrophils % Not Reportable Carbonic Acid 0.88 L HCO3/H2CO3 Ratio 19:1 ABG pH 7.38 ABG pCO2 29.3 L ABG pO2 80.5 ABG HCO3 17.0 L ABG O2 Saturation 95.9 ABG Base Excess -7.1 FiO2 40% Sodium 138.6 Potassium 3.8 Chloride 104 Carbon Dioxide 17 L Anion Gap 18 BUN 90 H Creatinine 2.95 H Est GFR ( Amer) 26 L Glucose 309 H Serum Osmolality Lactic Acid Calcium 7.1 L Ionized Calcium Corina Phosphorus 4.4 Magnesium 2.0 D Total Bilirubin 2.4 H AST 97 H Alkaline Phosphatase 72 Ammonia Total Protein 5.3 L Albumin 2.4 L Triglycerides 122 Amylase Lipase TSH Free T4 Free T3 pg/mL Urine Color Urine Appearance Urine pH Ur Specific Covel Urine Protein Urine Glucose (UA) Urine Ketones Urine Blood Urine RBC (Auto) Blood Type Antibody Screen 08/17/19 08/17/19 08/17/19 10:42 10:42 10:42 Creatine Kinase 675 H 657 H Troponin I < 0.012 08/17/19 08/17/19 08/18/19 14:45 22:10 02:25 Creatine Kinase 927 H 749 H Troponin I < 0.012 Impressions: Head CT 08/17/19 10:44 IMPRESSION: Mild involutional changes and chronic microvascular ischemia. No acute intracranial imaging findings. EVIDENCE OF ACUTE STROKE: NO. Abdomen/Pelvis CT 08/18/19 00:00 IMPRESSION: Wall thickening throughout the colon suggesting colitis with a small amount of fluid in the paracolic gutters and in the pelvis Diffuse bilateral pulmonary infiltrates with small effusions. Findings may reflect pulmonary edema. Pneumonia is not excluded Wall thickening in the gallbladder which is nonspecific. Cholecystitis is not excluded Extensive vascular calcification Chest CT 08/18/19 00:00 IMPRESSION: Wall thickening throughout the colon suggesting colitis with a small amount of fluid in the paracolic gutters and in the pelvis Diffuse bilateral pulmonary infiltrates with small effusions. Findings may reflect pulmonary edema. Pneumonia is not excluded Wall thickening in the gallbladder which is nonspecific. Cholecystitis is not excluded Extensive vascular calcification All labs, radiographs, diagnostic studies and EKGs were personally reviewed: Yes In addition, reports of radiographic and diagnostic studies were read: Yes Assessment and Plan - Diagnosis (1) Sepsis with encephalopathy and septic shock Qualifiers: Sepsis type: sepsis due to unspecified organism Qualified Code(s): A41.9 - Sepsis, unspecified organism; R65.21 - Severe sepsis with septic shock; G93.40 - Encephalopathy, unspecified Is this a current diagnosis for this admission?: Yes (2) Encephalopathy acute Is this a current diagnosis for this admission?: Yes (3) Acute renal failure Is this a current diagnosis for this admission?: Yes (4) Rhabdomyolysis Qualifiers: Rhabdomyolysis type: traumatic Encounter type: initial encounter Qualified Code(s): T79.6XXA - Traumatic ischemia of muscle, initial encounter Is this a current diagnosis for this admission?: Yes (5) Coagulopathy Is this a current diagnosis for this admission?: Yes (6) Type 2 diabetes mellitus Qualifiers: Diabetes mellitus retirement insulin use: without termite exterminator helper use Diabetes mellitus complication status: with other specified complication Qualified Code(s): E11.69 - Type 2 diabetes mellitus with other specified complication Is this a current diagnosis for this admission?: Yes (7) Alcohol use Is this a current diagnosis for this admission?: Yes (8) Noreen coma scale score 3-8, at hospital admission Is this a current diagnosis for this admission?: Yes (9) Thrombocytopenia Is this a current diagnosis for this admission?: Yes Plan Summary: 08.18.2019: Respiratory: Patient has an intact respiratory drive and has an aspiration pneumonitis. Although not typically done with aspiration patient is on antibiotics for other reasons. In his neurological status he is unable to be weaned. Infectious: Patient is presenting with sepsis associated with organ failure/shock. What is most salient is our inability to determine the source. Given his neurological presentation the most logical would be meningitis. He does not have all the manifestations of this and we have been unable to perform LP secondary to coagulopathy. Plan is to continue broad-spectrum antibiotics including cefepime to cover broader gram-negative. He is on renal dosed acyclovir until and HSV PCR could be completed. Unfortunately we do not have a procalcitonin available to determine if this is a non-infectious process. Given the severity of his shock I have given 1 dose of gentamicin and in addition he was started on Florinef and Decadron for meningeal coverage in addition to mineralocorticoid assistance. Cardiac: Patient's hemodynamic profile is suggestive of sepsis with distributive shock. His baseline critical care echocardiogram shows intact, in fact hyperdynamic profile. There is some level of volume depletion and we are replacing this. His vasopressor requirements have improved. Given the complexity of his illness this may be reflective of volume, antibiotics, reduction in inflammatory response after his inciting aspiration event. Hematologic: Patient has acquired coagulopathy not related to medications. There is some improvement in his INR and PTT with the combination of vitamin K and FFP. His platelet counts have improved with platelet transfusion. Our hope is to improve his coagulation status to be able to perform lumbar puncture. He does have a decrease in his hemoglobin and hematocrit and given the appearance of his early gastric emesis this may represent possible gastritis and/or varices related bleeding. Will speak with surgery to assure that there is no active process. Will need to improve coagulation status prior to this evaluation. Have placed him on high dose folate. Endocrine: The patient has been started on Florinef as a mineralocorticoid given his excessive shock state. He has a history of type 2 diabetes and has been on metformin. His lactic acid has been elevated and the concern for metformin involvement has been a strong consideration. That being said his acidosis has improved and the lactic acid elevation may be a component of his sepsis, metformin associated and liver dysfunction. Will monitor glucose appropriately and especially since he is on steroids. TSH is appropriate. Renal: Patient has acute renal failure. This appears to be a combination of sepsis induced ATN as well as dehydration. This also may have led to metformin associated lactic acidosis. He has been on a bicarbonate drip which has helped with pH. I have ordered an ultrasound the kidneys. If there is no improvement in his lactic acidosis we may be forced to transition to dialysis in order to alleviate the lactic acid metformin dysfunction. Medications have been dose adj usted because of the low GFR. What I am most concerned about is that we have had to place him on vancomycin and acyclovir which are known to cause worsening kidney function. In addition given his shock state 1 concentrated dose of gentamicin was given. Overall his shock state has improved but I am concerned about the cost of his renal function. Will discuss with the nephrology service. Metabolic: We are closely watching his metabolic profile including pH renal function and lactic acid. Electrolytes are being evaluated as well. Alimentary: Patient currently is on octreotide because of the vomiting and the dark bloody appearance. His hemoglobin and hematocrit have not dramatically decreased and he did not need blood products. There is some delusional effect given the amount of fluid required for his hypotension. Plan will be to eventually have EGD once coagulopathy has improved. We will continue Protonix and octreotide until that time period. Need to consider tube feeding as well given his poor nutritional status on presentation. This is a historical note given by his daughter who states that he has not been eating well but has been drinking alcohol. Neurologic: By far the biggest concern is his neurological status. 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 It is difficult to know whether this is alcohol withdrawal or he has an infectious process. We have been unable to perform LP given his coagulation status. Noted to have GPD's on his EEG yesterday however he was hypothermic at that time. A repeat EEG is being done at this time. Plan will be to evaluate this after this is done stat. This will be then followed by CT scan of his brain to rule out any changes. Our hope is to improve his coagulation status and perform LP in an attempt to reduce the amount of medications the patient is on. He currently is comatose. This is a very complex case whose etiologic foundation has been difficult to determine. We will await further studies to determine best course of treatment. Critical Time Critical Time (minutes): 90 Level of Care: ICU -: 1. The care of a critical patient is a dynamic process. This note is a re presentative synopsis but static in nature. The timeframe for treatments given in order is not necessarily the actual time these treatments may have been done. 2. This patient requires critical care secondary to ongoing requirements for therapy not offered or safe outside the critical care environment. Transfer to a lower level of care will result in altered life or limb morbidity and mortalit y. 3. Multidisciplinary rounds completed. 4. ABCDE bundle addressed.
[2019-08-18] MEDS: FOLIC ACID IV SCH (22:04)
[2019-08-18] MEDS ORDERED: HYDROCORTISONE SOD SUCCINATE INJ/PF 100 MG/2 ML SDV IV SCH (22:19)
[2019-08-19] MEDS: INSULIN REG, HUMAN 100 UNIT/ML 3 ML VIAL (PYX) SUBCUT SCH ×7 (00:04→21:46)
[2019-08-19 00:39] LABS: INTERNATIONAL RATION (INR) 1.72; PROTHROMBIN TIME 20.4 SEC (11.4-15.4)
[2019-08-19 00:44] LABS: HEMATOCRIT 21.1 % (37.9-51.0); MEAN CORPUSCULAR HEMOGLOBIN 37.4 pg (27.0-33.4); MEAN CORPUSCULAR HGB CONC 33.9 g/dL (32.0-36.0); MEAN CORPUSCULAR VOLUME 111 fl (80-97); RED BLOOD COUNT 1.91 10^6/uL (4.35-5.55); WHITE BLOOD COUNT 19.4 10^3/uL (4.0-10.5)
[2019-08-19] MEDS ORDERED: NORMAL SALINE 250 ML IV PRN (00:55)
[2019-08-19 00:58] LABS: HEMOGLOBIN 7.2 g/dL (13.5-17.0); PLATELET COUNT 74 10^3/uL (150-450)
[2019-08-19] MEDS: DEXTROSE 5%-WATER 250 ML with NOREPINEPHRINE BITARTRATE 4 MG IV PRN ×6 (03:40→23:38)
[2019-08-19 04:26] LABS: HEMATOCRIT 20.7 % (37.9-51.0); MEAN CORPUSCULAR HEMOGLOBIN 37.2 pg (27.0-33.4); MEAN CORPUSCULAR HGB CONC 33.8 g/dL (32.0-36.0); MEAN CORPUSCULAR VOLUME 110 fl (80-97); RED BLOOD COUNT 1.89 10^6/uL (4.35-5.55); RED CELL DISTRIBUTION WIDTH 14.9 % (11.5-14.0)
[2019-08-19 04:29] LABS: ARTERIAL BLOOD BASE EXCESS 3.2 mmol/L; ARTERIAL BLOOD H2CO3 0.95 mmol/L (1.05-1.35); ARTERIAL BLOOD HCO3 25.5 mmol/L (20-24); ARTERIAL BLOOD O2 SATURATION 94.4 % (94-98); ARTERIAL BLOOD PCO2 31.7 mmHg (35-45); ARTERIAL BLOOD PH 7.52 (7.35-7.45); ARTERIAL BLOOD PO2 62.9 mmHg (80-100); ARTERIAL BLOOD TOTAL CO2 26.5 mmol/L (23-27)
[2019-08-19 04:30] LABS: INTERNATIONAL RATION (INR) 1.69; PROTHROMBIN TIME 20.1 SEC (11.4-15.4)
[2019-08-19 04:31] LABS: ARTERIAL BLOOD FIO2 40%; PARTIAL THROMBOPLASTIN TIME 40.2 SEC (23.5-35.8)
[2019-08-19 04:41] LABS: ALBUMIN 2.9 g/dL (3.5-5.0); ALKALINE PHOSPHATASE 69 U/L (38-126); ANION GAP 15 (5-19); ASPARTATE AMINO TRANSFERASE 100 U/L (17-59); BILIRUBIN,DIRECT 1.7 mg/dL (0.0-0.4); BILIRUBIN,TOTAL 3.4 mg/dL (0.2-1.3); BLOOD UREA NITROGEN 79 mg/dL (7-20); CARBON DIOXIDE 26 mmol/L (22-30); CHLORIDE 93 mmol/L (98-107); GLUCOSE 239 mg/dL (75-110); PHOSPHORUS 3.1 mg/dL (2.5-4.5); POTASSIUM 3.5 mmol/L (3.6-5.0); TOTAL PROTEIN 6.1 g/dL (6.3-8.2)
[2019-08-19 04:52] LABS: CALCIUM 6.4 mg/dL (8.4-10.2)
[2019-08-19 05:08] LABS: PLATELET COUNT 74 10^3/uL (150-450)
[2019-08-19 05:14] LABS: ABSOLUTE LYMPHOCYTES# (MANUAL) 2.5 10^3/uL (0.5-4.7); ABSOLUTE MONOCYTES # (MANUAL) 0.6 10^3/uL (0.1-1.4); BAND NEUTROPHILS % (MANUAL) 2 % (3-5); BASOPHILS % (MANUAL) 0 % (0-2); EOSINOPHILS % (MANUAL) 0 % (0-6); LYMPHOCYTES % (MANUAL) 13 % (13-45); METAMYELOCYTES % (MANUAL) 3 % (0-1); MONOCYTES % (MANUAL) 3 % (3-13); PROMYELOCYTES % (MANUAL) 1 % (0); SEGMENTED NEUTROPHILS % (MAN) 78 % (42-78); TOTAL CELLS COUNTED 100
[2019-08-19 05:15] LABS: ANISOCYTOSIS SLIGHT; TOXIC GRANULATION 1+
[2019-08-19 05:16] LABS: PLATELET COMMENT DECREASED
[2019-08-19] MEDS: INSULIN GLARGINE,HUM.REC.ANLOG 1,000 UNIT/10 ML VIAL SUBCUT SCH ×2 (05:27→17:52)
[2019-08-19] MEDS: MINERAL OIL/PETROLATUM,WHITE OPH OINT 3.5 GM OU SCH ×3 (05:27→21:47)
[2019-08-19] MEDS: LEVETIRACETAM 500 MG/NACL-ISO 500 MG/100 ML RTUPB IV SCH ×2 (05:27→17:50)
[2019-08-19] MEDS: AMPICILLIN SODIUM 2 GM in NORMAL SALINE 100 ML IV SCH ×3 (05:27→21:45)
--- NOTE | 2019-08-19 08:38 | RADIOLOGY REPORT (SQ) ---
EXAM DESCRIPTION: CHEST SINGLE VIEW COMPLETED DATE/TIME: 08/19/2019 6:23 am REASON FOR STUDY: aspiration COMPARISON: 08/18/2019 NUMBER OF VIEWS: One view. TECHNIQUE: Single frontal radiographic image of the chest acquired. LIMITATIONS: None. FINDINGS: LUNGS AND PLEURA: Stable appearance. Bilateral airspace disease and small effusions, left greater than right. No pneumothorax. MEDIASTINUM AND HEART: Stable heart size and mediastinal structures. SUPPORT DEVICES: Appropriate location without change. BONY STRUCTURES: No acute findings. HARDWARE: None. OTHER: No other significant finding. IMPRESSION: STABLE APPEARANCE OF THE CHEST. SUPPORT DEVICES UNCHANGED. Reading location - IP/workstation name: [email or web address]
[2019-08-19] MEDS: NORMAL SALINE 100 ML with PANTOPRAZOLE SODIUM 80 MG IV PRN ×4 (10:03→20:33)
[2019-08-19] MEDS: WATER FOR INJECTION,STERILE 1,000 ML with SODIUM BICARBONATE 125 MEQ IV PRN ×4 (10:17→17:51)
[2019-08-19] MEDS: THIAMINE HCL 500 MG in NORMAL SALINE 250 ML IV SCH ×2 (10:19→21:46)
[2019-08-19] MEDS: CEFTRIAXONE 2 GM/D5W RTU 2 GM/50 ML RTUPB IV SCH ×2 (10:24→21:45)
[2019-08-19] MEDS: DEXAMETHASONE SOD PHOS INJ 10 MG/1 ML VIAL IV SCH ×2 (10:25→21:46)
[2019-08-19] MEDS: FLUDROCORTISONE ACETATE 0.1 MG TABLET NG SCH (10:25)
[2019-08-19] MEDS: DEXTROSE 5%-WATER 250 ML with VASOPRESSIN 100 UNIT IV PRN ×2 (11:21)
[2019-08-19] MEDS: NORMAL SALINE 500 ML with OCTREOTIDE ACETATE 500 MCG IV PRN ×2 (11:30)
[2019-08-19] MEDS: VANCOMYCIN HCL 500 MG in DEXTROSE 5%-WATER 100 ML IV SCH (12:00)
--- NOTE | 2019-08-19 12:08 | PDOC CRITICAL CARE PROG REPORT ---
General Date:: 08/19/19 ICU Day:: 3 Ventilator Day:: 3 Hospital Day:: 3 Resuscitation Status: Full Code Medical Power of Parts Lister: Daughter: Aylin Events in the past 12 to 24 Hours:: 08.19.2019: Bp improved and weaning levophed. Vasopressin had been discontinued but restarted this morning due to liver failure He has not been on sedation. Minimally responsive. Met with daughter Aylin who stated the patient has been depressed, minimal nutritional intake increased alcohol use. 08.18.2019: Patient was transferred from the emergency room where he had a further change in his encephalopathy. He appeared to have nystagmus with blinking and was less responsive. He was also noted to be actively vomiting with emesis in his throat. He was hypoxic and required intubation. He has been quite ill throughout the evening. CT scan of the abdomen and pelvis was done which was revealing only for what appeared to be colitis. There were no sources of sepsis other than the possible colitis. CT of the chest shows mixed interstitial alveolar pattern consistent with aspiration however pneumonia may also be present. He remained coagulopathic and was given blood products and vitamin K. His INR is still elevated. Our hope was to perform LP to rule out meningitis. He has been placed on broad-spectrum antibiotics and change from Rocephin to cefepime to hernandez more gram-negative coverage and to cover meningitis. The vomitus originally appeared dark and we were concerned about a upper GI bleed. However the hemoglobin was actually improved from admission. It is slightly lower today but he has been given volume because of his hypotension and his dehydrated state. He was volume responsive and passive leg raise improved blood pressure. The right femoral central venous catheter was removed after a right IJ central venous catheter was placed successfully by the nighttime critical care DOROTHEA. He also has a radial arterial catheter. Review of systems relevant to events:: 08.19.2019: Creatinine slightly improved. UOP better on pH balanced solution of sterile water and 125 mEq of NaHCO3. Minimal response off sedation. Breathing above vent rate. No clinical seizure activity. EEG shows GPD but no active seizures. 08.18.2019: Originally on high-dose vasopressor therapy including vasopressin these requirements are now improved and the Levophed has gone from 45 down to 20-25. He is starting to have some response to noxious stimulus but is in a comatose state without any sedation. Vital signs were reviewed and evaluated. Urine output has been decreased and scant. Ultrasound of the IVC showed underfilling and inappropriate tachycardic response on echo with an intact ejection fraction. He had an EEG which showed GPD's however he was hypothermic at the time and a repeat EEG is ongoing at the time of this dictation. He has been taken off sedation and has been unresponsive but does have an intact respiratory drive. He was also started on meningitis dosed Decadron and Florinef for mineralocorticoid support. Reason for ICU Addmission:: Sepsis with shock, encephalopathy - Medications: Medications reviewed and adjusted accordingly: Yes Vasopressors:: 1.8.2020: Levophed at 10-11 mcg; vasopressin @0.03 Physical Exam Vital Signs: Temp Pulse Resp BP Pulse Ox 99.0 F 94 19 111/60 98 08/19/19 08:00 08/19/19 08:00 08/19/19 08:00 08/19/19 08:00 08/19/19 08:32 Intake & Output 08/18/19 08/19/19 08/20/19 06:59 06:59 06:59 Intake Total 5194 5378.0 Output Total 75 1117 75 Balance 5119 4261.0 -75 Weight 66.8 kg 76.9 kg Weight/Height Weight 76.9 kg Height 5 ft 3 in General appearance: PRESENT: no acute distress, disheveled Head exam: PRESENT: atraumatic, normocephalic Eye exam: PRESENT: conjunctival injection, conjunctiva pink, PERRLA. ABSENT: nystagmus Ear exam: PRESENT: normal external ear exam Mouth exam: PRESENT: dry mucosa Teeth exam: PRESENT: poor dentation, other - Near edentulous Neck exam: ABSENT: carotid bruit, JVD, lymphadenopathy, thyromegaly Respiratory exam: PRESENT: clear to auscultation yanet, unlabored. ABSENT: accessory muscle use, rales, rhonchi, tachypnea, wheezes Cardiovascular exam: PRESENT: RRR, tachycardia Pulses: PRESENT: +1 pedal pulses bilateral GI/Abdominal exam: PRESENT: normal bowel sounds, soft. ABSENT: ascites, di stended, guarding, mass, organolmegaly, rebound, tenderness Gentrourinary exam: PRESENT: indwelling catheter Extremities exam: ABSENT: pedal edema Musculoskeletal exam: ABSENT: deformity, dislocation Neurological exam: PRESENT: altered - FOUR Score: E:1- M: 1; BS: 4; R: 1 = 7 Babinski downgoing. No liliane-erection, no nystagmus Skin exam: PRESENT: dry, normal color. ABSENT: cyanosis, erythema, mottled, pallor, petechiae, rash Tubes/Lines: PRESENT: Endotracheal Tube, Central Line, Arterial Catheter, Other - Guy and Oral gastric tube Laboratory/Radiographs Laboratory Results: 08/19/19 04:13 08/19/19 04:13 08/17/19 08/18/19 08/18/19 19:18 06:15 12:03 WBC RBC Hgb Hct MCV MCH MCHC RDW Plt Count Seg Neutrophils % Carbonic Acid HCO3/H2CO3 Ratio ABG pH ABG pCO2 ABG pO2 ABG HCO3 ABG O2 Saturation ABG Base Excess FiO2 Sodium 133.9 L Potassium 4.2 Chloride 99 Carbon Dioxide 20 L Anion Gap 15 BUN 88 H Creatinine 2.48 H Est GFR ( Amer) 31 L Glucose 409 H* Lactic Acid Calcium 6.6 L* Phosphorus 4.8 H Magnesium 1.8 Total Bilirubin AST Alkaline Phosphatase C-Reactive Protein 58.2 H Total Protein Albumin Blood Type O POSITIVE Antibody Screen NEGATIVE 08/18/19 08/18/19 08/18/19 12:03 12:07 16:00 WBC 21.1 H RBC 2.06 L Hgb 7.6 L Hct 23.0 L MCV 112 H MCH 37.1 H MCHC 33.2 RDW 15.0 H Plt Count 91 L Seg Neutrophils % Not Reportable Carbonic Acid 0.88 L HCO3/H2CO3 Ratio 21:1 ABG pH 7.43 ABG pCO2 29.1 L ABG pO2 86.7 ABG HCO3 19.0 L ABG O2 Saturation 97.0 ABG Base Excess -4.5 FiO2 40% Sodium Potassium Chloride Carbon Dioxide Anion Gap BUN Creatinine Est GFR ( Amer) Glucose Lactic Acid 6.1 H Calcium Phosphorus Magnesium Total Bilirubin AST Alkaline Phosphatase C-Reactive Protein Total Protein Albumin Blood Type Antibody Screen 08/18/19 08/19/19 08/19/19 16:00 00:20 04:13 WBC 19.4 H RBC 1.91 L Hgb 7.2 L Hct 21.1 L MCV 111 H MCH 37.4 H MCHC 33.9 RDW 15.0 H Plt Count 74 L Seg Neutrophils % Carbonic Acid 0.95 L HCO3/H2CO3 Ratio 26:1 ABG pH 7.52 H ABG pCO2 31.7 L ABG pO2 62.9 L ABG HCO3 25.5 H ABG O2 Saturation 94.4 ABG Base Excess 3.2 FiO2 40% Sodium Potassium Chloride Carbon Dioxide Anion Gap BUN Creatinine Est GFR ( Amer) Glucose Lactic Acid 6.8 H Calcium Phosphorus Magnesium Total Bilirubin AST Alkaline Phosphatase C-Reactive Protein Total Protein Albumin Blood Type Antibody Screen 08/19/19 08/19/19 08/19/19 04:13 04:13 04:13 WBC 19.0 H RBC 1.89 L Hgb 7.0 L Hct 20.7 L MCV 110 H MCH 37.2 H MCHC 33.8 RDW 14.9 H Plt Count 74 L Seg Neutrophils % Not Reportable Carbonic Acid HCO3/H2CO3 Ratio ABG pH ABG pCO2 ABG pO2 ABG HCO3 ABG O2 Saturation ABG Base Excess FiO2 Sodium 134.3 L Potassium 3.5 L Chloride 93 L Carbon Dioxide 26 Anion Gap 15 BUN 79 H Creatinine 2.68 H Est GFR ( Amer) 28 L Glucose 239 H Lactic Acid 5.6 H Calcium 6.4 L* Phosphorus 3.1 Magnesium 1.7 Total Bilirubin 3.4 H AST 100 H Alkaline Phosphatase 69 C-Reactive Protein Total Protein 6.1 L Albumin 2.9 L Blood Type Antibody Screen 08/17/19 14:45 Blood Blood Culture (PCR) - Final 08/17/19 08/17/19 08/17/19 10:42 10:42 10:42 Creatine Kinase 675 H 657 H Troponin I < 0.012 08/17/19 08/17/19 08/18/19 14:45 22:10 02:25 Creatine Kinase 927 H 749 H Troponin I < 0.012 Impressions: Abdomen Ultrasound 08/18/19 00:00 IMPRESSION: Hepatic steatosis. Small amount of ascites. There is sludge in the gallbladder with thickening of the wall. Correlate clinically for cholec ystitis. There is mild splenomegaly. Abdomen/Pelvis CT 08/18/19 00:00 IMPRESSION: Wall thickening throughout the colon suggesting colitis with a small amount of fluid in the paracolic gutters and in the pelvis Diffuse bilateral pulmonary infiltrates with small effusions. Findings may reflect pulmonary edema. Pneumonia is not excluded Wall thickening in the gallbladder which is nonspecific. Cholecystitis is not excluded Extensive vascular calcification Chest CT 08/18/19 00:00 IMPRESSION: Wall thickening throughout the colon suggesting colitis with a small amount of fluid in the paracolic gutters and in the pelvis Diffuse bilateral pulmonary infiltrates with small effusions. Findings may reflect pulmonary edema. Pneumonia is not excluded Wall thickening in the gallbladder which is nonspecific. Cholecystitis is not excluded Extensive vascular calcification Head CT 08/18/19 00:00 IMPRESSION: No acute intracranial abnormality. EVIDENCE OF ACUTE STROKE: NO. Chest X-Ray 08/19/19 06:00 IMPRESSION: STABLE APPEARANCE OF THE CHEST. SUPPORT DEVICES UNCHANGED. All labs, radiographs, diagnostic studies and EKGs were personally reviewed: Yes In addition, reports of radiographic and diagnostic studies were read: Yes Assessment and Plan - Diagnosis (1) Sepsis with encephalopathy and septic shock Qualifiers: Sepsis type: sepsis due to unspecified organism Qualified Code(s): A41.9 - Sepsis, unspecified organism; R65.21 - Severe sepsis with septic shock; G93.40 - Encephalopathy, unspecified Is this a current diagnosis for this admission?: Yes (2) Encephalopathy acute Is this a current diagnosis for this admission?: Yes (3) Acute renal failure Is this a current diagnosis for this admission?: Yes (4) Rhabdomyolysis Qualifiers: Rhabdomyolysis type: traumatic Encounter type: initial encounter Qualified Code(s): T79.6XXA - Traumatic ischemia of muscle, initial encounter Is this a current diagnosis for this admission?: Yes (5) Coagulopathy Is this a current diagnosis for this admission?: Yes (6) Type 2 diabetes mellitus Qualifiers: Diabetes mellitus ferry terminal supervisor insulin use: without ferry terminal supervisor use Diabetes mellitus complication status: with other specified complication Qualified Code(s): E11.69 - Type 2 diabetes mellitus with other specified complication Is this a current diagnosis for this admission?: Yes (7) Alcohol use Is this a current diagnosis for this admission?: Yes (8) Noreen coma scale score 3-8, at hospital admission Is this a current diagnosis for this admission?: Yes (9) Thrombocytopenia Is this a current diagnosis for this admission?: Yes Plan Summary: 08.19.2019: Patient remains comatose. His static EEGs show occassional PLEDs but no active seizures. INR still not corrected most likely representing underlying liver dysfunction which may also explain his lactic acid elevation. My hope was to perform LP but without ROTO-TEG to determine true coagulopathic state. At this point an LP may help with determination of protein elevation however bacteria may not be recovered. His blood gram stain show gram positive organisms. He has been maintained on Cefepime for broad coverage during sepsis crisis as well as Ampicillin and Vancomycin and Acyclovir. Acyclovir has been discontinued for now to protect kidney function especially with gram positives now growing. He has been transitioned back to Rocephin 2 g every 12 hours. I am concerned about his neurologic status. I believe he needs continuous EEG for management. He remains comatose despite absence of sedation. His hemoglobin continues to drift downward which may be a reflection of early GI source of bleeding versus dilutional effect. We will continue to monitor. He has been maintained on octreotide and Protonix because at the time of his intubation it appeared to be an upper GI bleed. Is not been any further hemostatic episodes however he does have occasional NG tube dark fluid. We were attempting to correct his coagulopathy before EGD but this will have to be done as well. Have discussed with surgery who can usually perform these. They are unable to do so today. Furthermore the only GI practitioner available will not be able to do so until this afternoon. There is no apparent active bleed but will work towards obtaining EGD as soon as possible. His renal failure is slowly improving using a pH balance solution. Continue to treat supportively. I only concern is that his lactic elevation may have something to do with metformin however his pH has been maintained. He may require dialysis however at this point he is stable. I have made several phone calls and was able to reach out to the [facility] as well as Dr. Zuleyka Bergeron from infectious disease. I have been able to speak with the [facility] neurology ICU service and they have been kind enough to accept the patient in transfer. Our goal was to have an EGD performed before transfer however I am unable to find practitioner to perform prior to transfer. Will need follow-up CBC to assure that the hemoglobin hematocrit are stable. Currently he is on 10 mics of Levophed 0.03 of vasopressin. The Levophed is down from 45mcg 24 hours ago. 08.18.2019: Respiratory: Patient has an intact respiratory drive and has an aspiration pneumonitis. Although not typically done with aspiration patient is on antibiotics for other reasons. In his neurological status he is unable to be weaned. Infectious: Patient is presenting with sepsis associated with organ failure/shock. What is most salient is our inability to determine the source. Given his neurological presentation the most logical would be meningitis. He does not have all the manifestations of this and we have been unable to perform LP secondary to coagulopathy. Plan is to continue broad-spectrum antibiotics including cefepime to cover broader gram-negative. He is on renal dosed acyclovir until and HSV PCR could be completed. Unfortunately we do not have a procalcitonin available to determine if this is a non-infectious process. Given the severity of his shock I have given 1 dose of gentamicin and in addition he was started on Florinef and Decadron for meningeal coverage in addition to mineralocorticoid assistance. Cardiac: Patient's hemodynamic profile is suggestive of sepsis with distributive shock. His baseline critical care echocardiogram shows intact, in fact hyperdynamic profile. There is some level of volume depletion and we are re placing this. His vasopressor requirements have improved. Given the complexity of his illness this may be reflective of volume, antibiotics, reduction in inflammatory response after his inciting aspiration event. Hematologic: Patient has acquired coagulopathy not related to medications. There is some improvement in his INR and PTT with the combination of vitamin K and FFP. His platelet counts have improved with platelet transfusion. Our hope is to improve his coagulation status to be able to perform lumbar puncture. He does have a decrease in his hemoglobin and hematocrit and given the appearance of his early gastric emesis this may represent possible gastritis and/or varices related bleeding. Will speak with surgery to assure that there is no active process. Will need to improve coagulation status prior to this evaluation. Have placed him on high dose folate. Endocrine: The patient has been started on Florinef as a mineralocorticoid given his excessive shock state. He has a history of type 2 diabetes and has been on metformin. His lactic acid has been elevated and the concern for metformin involvement has been a strong consideration. That being said his acidosis has improved and the lactic acid elevation may be a component of his sepsis, metformin associated and liver dysfunction. Will monitor glucose appropriately and especially since he is on steroids. TSH is appropriate. Renal: Patient has acute renal failure. This appears to be a combination of sepsis induced ATN as well as dehydration. This also may have led to metformin associated lactic acidosis. He has been on a bicarbonate drip which has helped with pH. I have ordered an ultrasound the kidneys. If there is no improvement in his lactic acidosis we may be forced to transition to dialysis in order to alleviate the lactic acid metformin dysfunction. Medications have been dose adjusted because of the low GFR. What I am most concerned about is that we have had to place him on vancomycin and acyclovir which are known to cause worsening kidney function. In addition given his shock state 1 concentrated dose of gentamicin was given. Overall his shock state has improved but I am concerned about the cost of his renal function. Will discuss with the nephrology service. Metabolic: We are closely watching his metabolic profile including pH renal function and lactic acid. Electrolytes are being evaluated as well. Alimentary: Patient currently is on octreotide because of the vomiting and the dark bloody appearance. His hemoglobin and hematocrit have not dramatically decreased and he did not need blood products. There is some delusional effect given the amount of fluid required for his hypotension. Plan will be to eventually have EGD once coagulopathy has improved. We will continue Protonix and octreotide until that time period. Need to consider tube feeding as well given his poor nutritional status on presentation. This is a historical note given by his daughter who states that he has not been eating well but has been drinking alcohol. Neurologic: By far the biggest concern is his neurological status. 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 It is difficult to know whether this is alcohol withdrawal or he has an infectious process. We have been unable to perform LP given his coagulation status. Noted to have GPD's on his EEG yesterday however he was hypothermic at that time. A repeat EEG is being done at this time. Plan will be to evaluate this after this is done stat. This will be then followed by CT scan of his brain to rule out any changes. Our hope is to improve his coagulation status and perform LP in an attempt to reduce the amount of medications the patient is on. He currently is comatose. This is a very complex case whose etiologic foundation has been difficult to determine. We will await further studies to determine best course of treatment. Critical Time Critical Time (minutes): 70 Level of Care: ICU Anticipated discharge: [facility] - [facility] -: 1. The care of a critical patient is a dynamic process. This note is a community health representative synopsis but static in nature. The timeframe for treatments given in order is not necessarily the actual time these treatments may have been done. 2. This patient requires critical care secondary to ongoing requirements for therapy not offered or safe outside the critical care environment. Transfer to a lower level of care will result in altered life or limb morbidity and mortality. 3. Multidisciplinary rounds completed. 4. ABCDE bundle addressed.
--- NOTE | 2019-08-19 12:18 | PDOC TRANSFER SUMMARY ---
General Admission Date/PCP: 08/17/19 13:25 RICHARD MEANS Admission Date: 08/17/19 Transfer Date: 08/19/19 Accepting Facility: [facility] Resuscitation Status: Full Code - Transfer Diagnosis (1) Sepsis with encephalopathy and septic shock Is this a current diagnosis for this admission?: Yes (2) Encephalopathy acute Is this a current diagnosis for this admission?: Yes (3) Acute renal failure Is this a current diagnosis for this admission?: Yes (4) Rhabdomyolysis Is this a current diagnosis for this admission?: Yes (5) Coagulopathy Is this a current diagnosis for this admission?: Yes (6) Type 2 diabetes mellitus Is this a current diagnosis for this admission?: Yes (7) Alcohol use Is this a current diagnosis for this admission?: Yes (8) Blackwood coma scale score 3-8, at hospital admission Is this a current diagnosis for this admission?: Yes (9) Thrombocytopenia Is this a current diagnosis for this admission?: Yes - Transfer Medications Home Medications: Unobtainable 08/19/19 Transfer Medications: Current Medications Dexamethasone Sodium Phosphate (Decadron Inj 10 Mg/1 Ml Vial) 25 mg IV Q12 [facility] Stop: 08/19/19 22:01 Last Admin: 08/19/19 10:25 Dose: 25 mg Documented by: Dexamethasone Sodium Phosphate (Decadron Inj 4 Mg/Ml Vial) 10 mg IV Q6 [facility] Stop: 08/24/19 11:59 Dextrose (Dextrose Inj 50% Syringe (25 Gm/50 Ml)) 12.5 gm IV PRN PRN; Protocol PRN Reason: FOR BG 50-69 IN ALERT PATIENT Stop: 09/16/19 14:00 Dextrose (Dextrose Inj 50% Syringe (25 Gm/50 Ml)) 25 gm IV PRN PRN; Protocol PRN Reason: See Label Comments Stop: 09/16/19 14:00 Fludrocortisone Acetate (Florinef 0.1 Mg Tablet) 0.1 mg NG DAILY [facility] Stop: 09/17/19 09:59 Last Admin: 08/19/19 10:25 Dose: 0.1 mg Documented by: Glucagon (Glucagen Inj 1 Mg Vial) 1 mg SUBCUT PRN PRN; Protocol PRN Reason: Evaluate for BG < 70 Stop: 09/16/19 14:00 Glucose (Glutose 40% Gel 15 Gm Tube) 15 gm PO PRN PRN; Protocol PRN Reason: For BG 50-69 in Alert Patient Stop: 09/16/19 14:00 Glucose (Glutose 40% Gel 15 Gm Tube) 30 gm PO PRN PRN; Protocol PRN Reason: FOR BG < 50 IN ALERT PATIENT Stop: 09/16/19 14:00 Ampicillin Sodium 2 gm/ Sodium (Chloride) 100 mls @ 200 mls/hr IV Q8 [facility] Stop: 08/24/19 15:29 Last Admin: 08/19/19 05:27 Dose: 200 mls/hr, 200 mls/hr Documented by: Vancomycin HCl 500 mg/ (Dextrose) 100 mls @ 66.667 mls/hr IV NOON [facility] Stop: 08/25/19 11:59 Last Admin: 08/19/19 12:00 Dose: 66.7 mls/hr, 66.7 mls/hr Documented by: Levetiracetam (Keppra Rtu 500 Mg/Nacl-Iso 100 Ml Premix) 500 mg in 100 mls @ 400 mls/hr IV Q12A [facility] Stop: 09/17/19 05:59 Last Admin: 08/19/19 05:27 Dose: 400 mls/hr, 400 mls/hr Documented by: Propofol (Diprivan Rtu 1000 Mg/100 Ml Inf.Bottle) 1,000 mg in 100 mls @ 1.917 mls/hr IV CONTINUOUS PRN; Protocol PRN Reason: THIS MED IS NOT "PRN" Stop: 09/16/19 18:15 Last Titration: 08/18/19 03:31 Dose: 0 mcg/kg/min, 0 mls/hr Documented by: Pantoprazole Sodium 80 mg/ (Sodium Chloride) 100 mls @ 10 mls/hr IV CONTINUOUS PRN PRN Reason: THIS MED IS NOT "PRN" Stop: 08/24/19 18:19 Last Admin: 08/19/19 10:03 Dose: 10 mls/hr, 10 mls/hr Documented by: Octreotide Acetate 500 mcg/ (Sodium Chloride) 500 mls @ 25 mls/hr IV CONTINUOUS PRN PRN Reason: THIS MED IS NOT "PRN" Stop: 09/16/19 18:29 Last Admin: 08/19/19 11:30 Dose: 25 mcg/hr, 25 mls/hr Documented by: Thiamine HCl 500 mg/ Sodium (Chloride) 255 mls @ 510 mls/hr IV Q12 [facility] Stop: 08/20/19 21:59 Last Admin: 08/19/19 10:19 Dose: 510 mls/hr, 510 mls/hr Documented by: Thiamine HCl 250 mg/ Sodium (Chloride) 52.5 mls @ 100 mls/hr IV Q12 [facility] Stop: 09/19/19 21:59 Folic Acid 2 mg/ Sodium (Chloride) 50.4 mls @ 100.8 mls/hr IV QHS [facility] Stop: 09/16/19 21:59 Last Admin: 08/18/19 22:04 Dose: 100.8 mls/hr, 100.8 mls/hr Documented by: Vasopressin 100 unit/ Dextrose 250 mls @ 6 mls/hr IV CONTINUOUS PRN; Protocol PRN Reason: THIS MED IS NOT "PRN" Stop: 09/16/19 22:16 Last Admin: 08/19/19 11:21 Dose: 0.03 unit/min, 4.5 mls/hr Documented by: Sodium Bicarbonate 125 meq/ (Sterile Water) 1,125 mls @ 150 mls/hr IV CONTINUOUS PRN PRN Reason: THIS MED IS NOT "PRN" Stop: 09/17/19 08:29 Last Admin: 08/19/19 10:17 Dose: 150 mls/hr Documented by: Norepinephrine Bitartrate 4 mg (/ Dextrose) 250 mls @ 0 mls/hr IV CONTINUOUS PRN; Protocol PRN Reason: THIS MED IS NOT "PRN" Stop: 09/17/19 08:41 Last Titration: 08/19/19 12:07 Dose: 3 mcg/min, 11.25 mls/hr Documented by: Sodium Chloride (Nacl 0.9% 250 Ml Iv Soln) 250 mls @ 30 mls/hr IV .DURING TRANSFUSION PRN PRN Reason: THIS MED IS NOT "PRN" Stop: 08/19/19 19:08 Sodium Chloride (Nacl 0.9% 250 Ml Iv Soln) 250 mls @ 0 mls/hr IV CONTINUOUS PRN PRN Reason: AFTER EACH UNIT Stop: 08/19/19 19:08 Sodium Chloride (Nacl 0.9% 250 Ml Iv Soln) 250 mls @ 0 mls/hr IV CONTINUOUS PRN PRN Reason: AFTER EACH UNIT Stop: 08/20/19 00:54 Ceftriaxone Sodium/Dextrose (Rocephin Rtu 2 Gm/D5w 50 Ml Premix Bag) 2 gm in 50 mls @ 100 mls/hr IV Q12 [facility] Stop: 08/26/19 09:59 Last Admin: 08/19/19 10:24 Dose: 100 ml/hr, 100 mls/hr Documented by: Insulin Glargine (Lantus Insulin 100 Unit/1 Ml 10 Ml) 10 unit SUBCUT Q12A [facility] Stop: 09/17/19 15:59 Last Admin: 08/19/19 05:27 Dose: 10 unit Documented by: Insulin Human Regular (Humulin R (Pyxis) Insulin 100 Unit/Ml 3ml) 0 - 14 unit SUBCUT Q4 [facility]; Protocol Stop: 09/18/19 11:29 Last Admin: 08/19/19 10:59 Dose: 6 unit Documented by: Multi-Ingredient Cream (Lacri-Lube S.O.P. Ointment 3.5 Gm) 1 applic OU Q8 [facility] Stop: 09/16/19 21:59 Last Admin: 08/19/19 05:27 Dose: 1 applic Documented by: Pharmacy Profile Note (Medication Communication Order) 1 each .NOTICE NR Stop: 09/16/19 18:29 Sodium Chloride (Saline Flush 2.5 Ml Monoject Prefil Syrin) 2.5 ml IV Q8 [facility] Stop: 09/16/19 21:59 Last Admin: 08/19/19 05:11 Dose: Not Given Documented by: Sodium Chloride (Nacl 0.9% Inj/Pf 10 Ml Sdv) 10 ml IV .AFTER EACH USE PRN PRN Reason: AFTER EACH INTERMITTENT USE Stop: 09/17/19 06:10 - Allergies Allergies/Adverse Reactions: No Known Allergies Allergy (Unverified 08/25/13 08:08) - Diet/Activity Discharge Diet: Tube Feeding (Comments) - Nepro 1.8 Hospital Course Hospital Course: Patient admitted from ED after call by ED staff for patient found down. He primarily speaks Kiswahili but even with Kiswahili interpreters cannot communicate. Spoke with Daughter by phone who states patient has been depressed but not aware of any overt drug use or suicide ideation. He does carry a history of alcohol use which appears to be significant. He also has T2DM on oral medications. Review of medications shows no significant correlation or etiologic connection to encephalopathy. Noted to be in acute renal failure. Medications brought in show use of NSAIDS Extremely hypothermic requiring warming blanket. Urine discolored and extremely concentrated on visualization. UA pending. Given broad spectrum (Cefepime/Vanco) in ED. No history of seizures. The only significant history from daughter is that he has been depressed since and did not want to see family. He has felt that he was dying. Has had questionable weight loss but unable to confirm. Noted history from ED: Patient is brought in by paramedics due to being found unresponsive. History per paramedics is that daughter has been calling the patient for several days with no response. Police were asked to do a welfare check. Police found the patient on the floor unresponsive. EMS was then called and brought the patient to the hospital. EMS states they found the patient with a blood pressure of approximately 60 systolic. Blood glucose was 200 on scene. There is no evidence of trauma. No vomitus. Patient was not incontinent of urine or stool. Patient symptoms are severe. They are constant. Nothing makes them better or worse. No known radiation of the symptoms. Patient is nonverbal and cannot contribute significantly to history. Events of admission: Patient had been admitted to the critical care service but had an EEG in the ED prior to coming over. The information technology professor was not able to comment directly on any seizure activity but did state that it was abnormal. We are awaiting the official reading. Patient was transported to the ICU with where he appeared to have nystagmus and confusion. His blood pressure was significantly elevated necessitating discontinuation of Levophed. He had roving nystagmus and blinking on automutism's. I gave him 2 mg of Ativan with improvement in his neuro status. He aspirated twice during the ictal event. He then developed hypoxia necessitating bag mask valve ventilation and eventually emergently intubated in the ICU. Chest x-ray shows early right upper lobe interstitial changes consistent with most likely an aspiration. Notably when the patient was intubated significant gastric secretions were noted in the ET tube concerning enough that it was at first thought that the esophagus had been intubated. However confirmation by bilateral breath sounds end-tidal CO2 exchange and improvement in hypoxia as well as chest x-ray confirmation revealed the ET tube was in appropriate position and technical sales representative of a significant aspiration event. We will be performing bronchoscopy to clear any residual secretions given the acute timeframe. I notified the patient's daughter. I am concerned that the patient might be having nonconvulsive status and if so may need continuous EEG monitoring. Addition to the above patient is hypotensive which may be related to sepsis. His gastric aspirate appears to be dark and bloody and this may represent hemor rhagic shock as well. Have ordered blood products and will correct coagulopathy. Will need an EEG and possible transfer for continuous EEG monitoring however at this point stabilization of his bleed and his blood pressure is of paramount importance. I have started him on IV Keppra. The daughter was contacted and she alluded very strongly to the fact that the patient has been drinking significant amount of wine and has not been eating well. High-dose thiamine has been added. I am suspicious that he may have variceal bleeding or gastritis from alcohol use. In addition his neurological status may be indicative of an encephalitis or meningitis and have started appropriate antibiotic treatment. Unfortunately we are unable to perform an LP given his coagulation dysfunction. FFP and platelets have been ordered. Is already been given IV vitamin K. Had central line placed in his right femoral vein. Confirmation of placement in the vein was done with a venous blood gas which was consistent with venous cannulation. Given the fact that this was placed emergently in the emergency room we will place a a more formal and completely sterile central venous catheter in the neck once his blood products are given to prevent any further bleeding. The daughter has been made aware of his condition. She is given verbal consent over the phone for central line placement arterial line placement and blood products. He is a full code at this point but she did again state that the patient felt that he wanted to and was going to . Unsure if this represents a suicide attempt however will need to fully evaluate this once he is off the sedation and mechanical ventilation. I have added reduced dose acyclovir given his renal failure. We will have to be very careful to evaluate for further seizures with ampicillin use. 08.19.2019: Patient remains comatose. His static EEGs show occassional PLEDs but no active seizures. INR still not corrected most likely representing underlying liver dysfunction which may also explain his lactic acid elevation. My hope was to perform LP but without ROTO-TEG to determine true coagulopathic state. At this point an LP may help with determination of protein elevation however bacteria may not be recovered. His blood gram stain show gram positive organisms. He has been maintained on Cefepime for broad coverage during sepsis crisis as well as Ampicillin and Vancomycin and Acyclovir. Acyclovir has been discontinued for now to protect kidney function especially with gram positives now growing. He has been transitioned back to Rocephin 2 g every 12 hours. I am concerned about his neurologic status. I believe he needs continuous EEG for management. He remains comatose despite absence of sedation. His hemoglobin continues to drift downward which may be a reflection of early GI source of bleeding versus dilutional effect. We will continue to monitor. He has been maintained on octreotide and Protonix because at the time of his intubation it appeared to be an upper GI bleed. Is not been any further hemostatic episodes however he does have occasional NG tube dark fluid. We were attempting to correct his coagulopathy before EGD but this will have to be done as well. Have discussed with surgery who can usually perform these. They are unable to do so today. Furthermore the only GI practitioner available will not be able to do so until this afternoon. There is no apparent active bleed but will work towards obtaining EGD as soon as possible. His renal failure is slowly improving using a pH balance solution. Continue to treat supportively. I only concern is that his lactic elevation may have something to do with metformin however his pH has been maintained. He may require dialysis however at this point he is stable. I have made several phone calls and was able to reach out to the [facility] as well as Dr. Zuleyka Bergeron from infectious disease. I have been able to speak with the [facility] neurology ICU service and they have been kind enough to accept the patient in transfer. Our goal was to have an EGD performed before transfer however I am unable to find practitioner to perform prior to transfer. Will need follow-up CBC to assure that the hemoglobin hematocrit are stable. Currently he is on 10 mics of Levophed 0.03 of vasopressin. The Levophed is down from 45mcg 24 hours ago. 08.18.2019: Respiratory: Patient has an intact respiratory drive and has an aspiration pneumonitis. Although not typically done with aspiration patient is on antibiotics for other reasons. In his neurological status he is unable to be weaned. Infectious: Patient is presenting with sepsis associated with organ failure/shock. What is most salient is our inability to determine the source. Given his neurological presentation the most logical would be meningitis. He does not have all the manifestations of this and we have been unable to perform LP secondary to coagulopathy. Plan is to continue broad-spectrum antibiotics including cefepime to cover broader gram-negative. He is on renal dosed acyclovir until and HSV PCR could be completed. Unfortunately we do not have a procalcitonin available to determine if this is a non-infectious process. Given the severity of his shock I have given 1 dose of gentamicin and in addition he was started on Florinef and Decadron for meningeal coverage in addition to mineralocorticoid assistance. Cardiac: Patient's hemodynamic profile is suggestive of sepsis with distributive shock. His baseline critical care echocardiogram shows intact, in fact hyperdynamic profile. There is some level of volume depletion and we are replacing this. His vasopressor requirements have improved. Given the complexity of his illness this may be reflective of volume, antibiotics, reduction in inflammatory response after his inciting aspiration event. Hematologic: Patient has acquired coagulopathy not related to medications. There is some improvement in his INR and PTT with the combination of vitamin K and FFP. His platelet counts have improved with platelet transfusion. Our hope is to improve his coagulation status to be able to perform lumbar puncture. He does have a decrease in his hemoglobin and hematocrit and given the appearance of his early gastric emesis this may represent possible gastritis and/or varices related bleeding. Will speak with surgery to assure that there is no active process. Will need to improve coagulation status prior to this evaluation. Have placed him on high dose folate. Endocrine: The patient has been started on Florinef as a mineralocorticoid given his excessive shock state. He has a history of type 2 diabetes and has been on metformin. His lactic acid has been elevated and the concern for metformin involvement has been a strong consideration. That being said his acidosis has improved and the lactic acid elevation may be a component of his sepsis, metformin associated and liver dysfunction. Will monitor glucose appropriately and especially since he is on steroids. TSH is appropriate. Renal: Patient has acute renal failure. This appears to be a combination of sepsis induced ATN as well as dehydration. This also may have led to metformin associated lactic acidosis. He has been on a bicarbonate drip which has helped with pH. I have ordered an ultrasound the kidneys. If there is no improvement in his lactic acidosis we may be forced to transition to dialysis in order to alleviate the lactic acid metformin dysfunction. Medications have been dose adj usted because of the low GFR. What I am most concerned about is that we have had to place him on vancomycin and acyclovir which are known to cause worsening kidney function. In addition given his shock state 1 concentrated dose of gentamicin was given. Overall his shock state has improved but I am concerned about the cost of his renal function. Will discuss with the nephrology service. Metabolic: We are closely watching his metabolic profile including pH renal function and lactic acid. Electrolytes are being evaluated as well. Alimentary: Patient currently is on octreotide because of the vomiting and the dark bloody appearance. His hemoglobin and hematocrit have not dramatically decreased and he did not need blood products. There is some delusional effect given the amount of fluid required for his hypotension. Plan will be to eventually have EGD once coagulopathy has improved. We will continue Protonix and octreotide until that time period. Need to consider tube feeding as well given his poor nutritional status on presentation. This is a historical note given by his daughter who states that he has not been eating well but has been drinking alcohol. Neurologic: By far the biggest concern is his neurological status. 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 It is difficult to know whether this is alcohol withdrawal or he has an infectious process. We have been unable to perform LP given his coagulation status. Noted to have GPD's on his EEG yesterday however he was hypothermic at that time. A repeat EEG is being done at this time. Plan will be to evaluate this after this is done stat. This will be then followed by CT scan of his brain to rule out any changes. Our hope is to improve his coagulation status and perform LP in an attempt to reduce the amount of medications the patient is on. He currently is comatose. This is a very complex case whose etiologic foundation has been difficult to determine. We will await further studies to determine best course of treatment. 08.18.2019: Patient was transferred from the emergency room where he had a further change in his encephalopathy. He appeared to have nystagmus with blinking and was less responsive. He was also noted to be actively vomiting with emesis in his throat. He was hypoxic and required intubation. He has been quite ill throughout the evening. CT scan of the abdomen and pelvis was done which was revealing only for what appeared to be colitis. There were no sources of sepsis other than the possible colitis. CT of the chest shows mixed interstitial alveolar pattern consistent with aspiration however pneumonia may also be presen t. He remained coagulopathic and was given blood products and vitamin K. His INR is still elevated. Our hope was to perform LP to rule out meningitis. He has been placed on broad-spectrum antibiotics and change from Rocephin to cefepime to hernandez more gram-negative coverage and to cover meningitis. The vomitus originally appeared dark and we were concerned about a upper GI bleed. However the hemoglobin was actually improved from admission. It is slightly lower today but he has been given volume because of his hypotension and his dehydrated state. He was volume responsive and passive leg raise improved blood pressure. The right femoral central venous catheter was removed after a right IJ central venous catheter was placed successfully by the nighttime critical care DOROTHEA. He also has a radial arterial catheter. Review of systems relevant to events:: 08.18.2019: Originally on high-dose vasopressor therapy including vasopressin these requirements are now improved and the Levophed has gone from 45 down to 20-25. He is starting to have some response to noxious stimulus but is in a comatose state without any sedation. Vital signs were reviewed and evaluated. Urine output has been decreased and scant. Ultrasound of the IVC showed underfilling and inappropriate tachycardic response on echo with an intact ejection fraction. He had an EEG which showed GPD's however he was hypothermic at the time and a repeat EEG is ongoing at the time of this dictation. He has been taken off sedation and has been unresponsive but does have an intact respiratory drive. He was also started on meningitis dosed Decadron and Florinef for mineralocorticoid support. Reason for ICU Addmission:: Sepsis with shock, encephalopathy Physical Exam Vital Signs: Temp Pulse Resp BP Pulse Ox 99.0 F 94 18 124/63 98 08/19/19 08:00 08/19/19 10:00 08/19/19 10:00 08/19/19 10:00 08/19/19 10:00 Intake & Output 08/18/19 08/19/19 08/20/19 06:59 06:59 06:59 Intake Total 5194 5733.0 787 Output Total 75 1117 215 Balance 5119 4616.0 572 Weight 66.8 kg 76.9 kg Exam: See progress note from today Results Laboratory Results: 08/19/19 04:13 08/19/19 04:13 08/17/19 08/18/19 08/18/19 19:18 12:03 12:03 WBC RBC Hgb Hct MCV MCH MCHC RDW Plt Count Seg Neutrophils % Carbonic Acid HCO3/H2CO3 Ratio ABG pH ABG pCO2 ABG pO2 ABG HCO3 ABG O2 Saturation ABG Base Excess FiO2 Sodium 133.9 L Potassium 4.2 Chloride 99 Carbon Dioxide 20 L Anion Gap 15 BUN 88 H Creatinine 2.48 H Est GFR ( Amer) 31 L Glucose 409 H* Lactic Acid 6.1 H Calcium 6.6 L* Phosphorus 4.8 H Magnesium 1.8 Total Bilirubin AST Alkaline Phosphatase Total Protein Albumin Blood Type O POSITIVE Antibody Screen NEGATIVE 08/18/19 08/18/19 08/18/19 12:07 16:00 16:00 WBC 21.1 H RBC 2.06 L Hgb 7.6 L Hct 23.0 L MCV 112 H MCH 37.1 H MCHC 33.2 RDW 15.0 H Plt Count 91 L Seg Neutrophils % Not Reportable Carbonic Acid 0.88 L HCO3/H2CO3 Ratio 21:1 ABG pH 7.43 ABG pCO2 29.1 L ABG pO2 86.7 ABG HCO3 19.0 L ABG O2 Saturation 97.0 ABG Base Excess -4.5 FiO2 40% Sodium Potassium Chloride Carbon Dioxide Anion Gap BUN Creatinine Est GFR ( Amer) Glucose Lactic Acid 6.8 H Calcium Phosphorus Magnesium Total Bilirubin AST Alkaline Phosphatase Total Protein Albumin Blood Type Antibody Screen 08/19/19 08/19/19 08/19/19 00:20 04:13 04:13 WBC 19.4 H 19.0 H RBC 1.91 L 1.89 L Hgb 7.2 L 7.0 L Hct 21.1 L 20.7 L MCV 111 H 110 H MCH 37.4 H 37.2 H MCHC 33.9 33.8 RDW 15.0 H 14.9 H Plt Count 74 L 74 L Seg Neutrophils % Not Reportable Carbonic Acid 0.95 L HCO3/H2CO3 Ratio 26:1 ABG pH 7.52 H ABG pCO2 31.7 L ABG pO2 62.9 L ABG HCO3 25.5 H ABG O2 Saturation 94.4 ABG Base Excess 3.2 FiO2 40% Sodium Potassium Chloride Carbon Dioxide Anion Gap BUN Creatinine Est GFR ( Amer) Glucose Lactic Acid Calcium Phosphorus Magnesium Total Bilirubin AST Alkaline Phosphatase Total Protein Albumin Blood Type Antibody Screen 08/19/19 08/19/19 04:13 04:13 WBC RBC Hgb Hct MCV MCH MCHC RDW Plt Count Seg Neutrophils % Carbonic Acid HCO3/H2CO3 Ratio ABG pH ABG pCO2 ABG pO2 ABG HCO3 ABG O2 Saturation ABG Base Excess FiO2 Sodium 134.3 L Potassium 3.5 L Chloride 93 L Carbon Dioxide 26 Anion Gap 15 BUN 79 H Creatinine 2.68 H Est GFR ( Amer) 28 L Glucose 239 H Lactic Acid 5.6 H Calcium 6.4 L* Phosphorus 3.1 Magnesium 1.7 Total Bilirubin 3.4 H AST 100 H Alkaline Phosphatase 69 Total Protein 6.1 L Albumin 2.9 L Blood Type Antibody Screen 08/17/19 14:45 Blood Blood Culture (PCR) - Final 08/17/19 08/17/19 08/17/19 10:42 10:42 10:42 Creatine Kinase 675 H 657 H Troponin I < 0.012 08/17/19 08/17/19 08/18/19 14:45 22:10 02:25 Creatine Kinase 927 H 749 H Troponin I < 0.012 Impressions: Abdomen Ultrasound 08/18/19 00:00 IMPRESSION: Hepatic steatosis. Small amount of ascites. There is sludge in the gallbladder with thickening of the wall. Correlate clinically for cholecystitis. There is mild splenomegaly. Abdomen/Pelvis CT 08/18/19 00:00 IMPRESSION: Wall thickening throughout the colon suggesting colitis with a small amount of fluid in the paracolic gutters and in the pelvis Diffuse bilateral pulmonary infiltrates with small effusions. Findings may reflect pulmonary edema. Pneumonia is not excluded Wall thickening in the gallbladder which is nonspecific. Cholecystitis is not excluded Extensive vascular calcification Chest CT 08/18/19 00:00 IMPRESSION: Wall thickening throughout the colon suggesting colitis with a small amount of fluid in the paracolic gutters and in the pelvis Diffuse bilateral pulmonary infiltrates with small effusions. Findings may reflect pulmonary edema. Pneumonia is not excluded Wall thickening in the gallbladder which is nonspecific. Cholecystitis is not excluded Extensive vascular calcification Head CT 08/18/19 00:00 IMPRESSION: No acute intracranial abnormality. EVIDENCE OF ACUTE STROKE: NO. Chest X-Ray 08/19/19 06:00 IMPRESSION: STABLE APPEARANCE OF THE CHEST. SUPPORT DEVICES UNCHANGED. Status: Image reviewed by me Plan Discharge Plan: Patient to be transferred [facility] In addition to the above noted in the hospital course several significant follow-up items include #1: Coma with requirement for continuous EEG monitoring #2: Suspicion of meningitis on broad-spectrum antibiotics acyclovir discontinued #3: Gram-positive bacteremia suspicious for meningitis source #4: Possible GI bleed with concern for gastritis. Suspect variceal bleed unlikely #5: Coagulopathy with thrombocytopenia #6: Acute renal failure which is improving #7: Alcohol related abuse on high-dose thiamine and folate #8: 2 diabetes poorly controlled Made several attempts to locate the daughter Aylin Kwok, there is been no answer. Time Spent: Greater than 30 Minutes
[2019-08-19] MEDS ORDERED: INSULIN REG, HUMAN 100 UNIT/ML 3 ML VIAL (PYX) SUBCUT SCH (14:00)
[2019-08-19] MEDS ORDERED: RINGERS SOLUTION,LACTATED 1,000 ML IV PRN (18:16)
[2019-08-19 18:57] LABS: ARTERIAL BLOOD BASE EXCESS 6.9 mmol/L; ARTERIAL BLOOD H2CO3 0.87 mmol/L (1.05-1.35); ARTERIAL BLOOD HCO3 28.6 mmol/L (20-24); ARTERIAL BLOOD O2 SATURATION 98.2 % (94-98); ARTERIAL BLOOD PO2 91.8 mmHg (80-100); ARTERIAL BLOOD TOTAL CO2 29.5 mmol/L (23-27)
[2019-08-19 18:58] LABS: ARTERIAL BLOOD FIO2 40%
[2019-08-19 19:00] LABS: ARTERIAL BLOOD PH 7.61 (7.35-7.45)
[2019-08-19 19:06] LABS: HEMATOCRIT 20.7 % (37.9-51.0); MEAN CORPUSCULAR HEMOGLOBIN 37.5 pg (27.0-33.4); MEAN CORPUSCULAR HGB CONC 34.1 g/dL (32.0-36.0); MEAN CORPUSCULAR VOLUME 110 fl (80-97); RED BLOOD COUNT 1.88 10^6/uL (4.35-5.55); RED CELL DISTRIBUTION WIDTH 14.8 % (11.5-14.0); WHITE BLOOD COUNT 16.3 10^3/uL (4.0-10.5)
[2019-08-19 19:09] LABS: INTERNATIONAL RATION (INR) 1.72; PROTHROMBIN TIME 20.4 SEC (11.4-15.4)
[2019-08-19 19:10] LABS: PARTIAL THROMBOPLASTIN TIME 37.4 SEC (23.5-35.8)
[2019-08-19 19:19] LABS: HEMOGLOBIN 7.1 g/dL (13.5-17.0); PLATELET COUNT 58 10^3/uL (150-450)
[2019-08-19 19:25] LABS: ANION GAP 9 (5-19); BLOOD UREA NITROGEN 81 mg/dL (7-20); CARBON DIOXIDE 31 mmol/L (22-30); CHLORIDE 90 mmol/L (98-107); GLUCOSE 166 mg/dL (75-110); PHOSPHORUS 2.7 mg/dL (2.5-4.5); POTASSIUM 3.3 mmol/L (3.6-5.0)
[2019-08-19] MEDS ORDERED: NORMAL SALINE 1000 ML 1,000 ML IV PRN (19:38)
[2019-08-19] MEDS ORDERED: POTASSI CL 20 MEQ/50 ML RIDER 20 MEQ/50 ML RTUPB IV ONE (19:43)
[2019-08-19] MEDS ORDERED: NORMAL SALINE 1000 ML 500 ML IV ONE (19:45)
[2019-08-19 19:49] LABS: ABSOLUTE LYMPHOCYTES# (MANUAL) 1.5 10^3/uL (0.5-4.7); ABSOLUTE MONOCYTES # (MANUAL) 1.1 10^3/uL (0.1-1.4); ANISOCYTOSIS SLIGHT; BAND NEUTROPHILS % (MANUAL) 8 % (3-5); BASOPHILS % (MANUAL) 0 % (0-2); EOSINOPHILS % (MANUAL) 0 % (0-6); LYMPHOCYTES % (MANUAL) 9 % (13-45); METAMYELOCYTES % (MANUAL) 2 % (0-1); MONOCYTES % (MANUAL) 7 % (3-13); NUCLEATED RED BLOOD CELLS 5 /100 WBC (0); SEGMENTED NEUTROPHILS % (MAN) 74 % (42-78); TOTAL CELLS COUNTED 100
[2019-08-19 19:50] LABS: PLATELET COMMENT DECREASED
[2019-08-19] MEDS: NORMAL SALINE IV SCH (21:49)
[2019-08-19] MEDS: FOLIC ACID IV SCH (21:49)
[2019-08-19 22:59] VITALS: BP 115/71
[2019-08-20 07:05] LABS: G-6-PD QUANT U/10E12 RBC 373 (146-376)
[2019-08-20] MEDS ORDERED: DEXAMETHASONE SOD PHOSPHATE INJ 4 MG/1 ML VIAL IV SCH (12:00)
[2019-08-20] MEDS ORDERED: THIAMINE HCL 250 MG in NORMAL SALINE 50 ML IV SCH (22:00)
== END 2019-08-19 23:25 | disposition short-term general hospital (02) | DRG 871 ==
LOC: ER 10:12 → EH 13:25 → ICU 17:31
PROVIDERS: ADMIT Internal Medicine Critical Care Medicine; ATTEND Internal Medicine Critical Care Medicine
PROC: 5A1945Z Respiratory Ventilation, 24-96 Consecutive Hours (ICD-10-PCS; principal; 2019-08-17)
PROC: 02H633Z Insertion of Infusion Device into Right Atrium, Percutaneous Approach (ICD-10-PCS; 2019-08-17)
PROC: 0BH17EZ Insertion of Endotracheal Airway into Trachea, Via Natural or Artificial Opening (ICD-10-PCS; 2019-08-17)
PROC: 06HM33Z Insertion of Infusion Device into Right Femoral Vein, Percutaneous Approach (ICD-10-PCS; 2019-08-17)
PROC: 30233K1 Transfusion of Nonautologous Frozen Plasma into Peripheral Vein, Percutaneous Approach (ICD-10-PCS; 2019-08-17)
PROC: 30233R1 Transfusion of Nonautologous Platelets into Peripheral Vein, Percutaneous Approach (ICD-10-PCS; 2019-08-17)
DX: A41.9 Sepsis, unspecified organism (principal); G93.41 Metabolic encephalopathy; R65.21 Severe sepsis with septic shock; J96.01 Acute respiratory failure with hypoxia; J69.0 Pneumonitis due to inhalation of food and vomit; N17.9 Acute kidney failure, unspecified; M62.82 Rhabdomyolysis; D68.9 Coagulation defect, unspecified; E11.9 Type 2 diabetes mellitus without complications; I10 Essential (primary) hypertension; Z79.899 Other long term (current) drug therapy; F32.9 Major depressive disorder, single episode, unspecified; Z87.891 Personal history of nicotine dependence; Z78.1 Physical restraint status; H55.00 Unspecified nystagmus; D69.6 Thrombocytopenia, unspecified; Z79.84 Long term (current) use of oral hypoglycemic drugs; R56.9 Unspecified convulsions; R40.2422 Glasgow coma scale score 9-12, at arrival to emergency department; F10.10 Alcohol abuse, uncomplicated
CPT/HCPCS: 31500; 36415; 36430; 36556; 36620; 70450; 71045; 71250; 74176; 76700; 80053; 80307; 81001; 82105; 82140; 82150; 82330; 82533; 82550; 82803; 82960; 82962; 83036; 83605; 83690; 83735; 83930; 84100; 84439; 84443; 84478; 84481; 84484; 85025; 85027; 85384; 85610; 85652; 85730; 86140; 86850; 86900; 86901; 86920; 87040; 87070; 87077; 87086; 87088; 87150; 87186; 93005; 93010; 93976; 94002; 94003; 95819; 96365; 96375; 99239; 99291; 99292; C1751; C9113; J0133; J0290; J0610; J0692; J0696; J1100; J1580; J1815; J1953; J2060; J2354; J2704; J3010; J3370; J3411; J3430; J3480; J3490; J7030; J7040; J7050; J7060; J7120; P9017; P9035; P9041

== ENCOUNTER 2019-08-31 19:43 | Inpatient (IN) | payer MEDICARE, MEDICAID ==
[2019-08-31] MEDS ORDERED: INFLUENZA QUAD (6MOS+) 2019-20 VAC 0.5 ML SYR IM ONE (21:01)
[2019-08-31] MEDS ORDERED: PROMETHAZINE HCL INJ 25 MG/1 ML VIAL IV PRN (22:55)
[2019-08-31] MEDS ORDERED: MAG HYDROX/AL HYDROX/SIMETH SUSP 30 ML UDCUP PO PRN (22:55)
[2019-08-31] MEDS ORDERED: MAGNESIUM HYDROXIDE SUSP 30 ML UDCUP PO PRN (22:55)
[2019-08-31] MEDS ORDERED: HYDRALAZINE HCL INJ/PF 20 MG/1 ML SDV IV PRN (23:01)
[2019-08-31] MEDS ORDERED: ACETAMINOPHEN 325 MG TABLET PO PRN (23:01)
[2019-08-31] MEDS ORDERED: CHLORPROMAZINE HCL INJ 25 MG/1 ML AMPULE IV PRN (23:01)
[2019-08-31] MEDS ORDERED: DIAZEPAM INJ 10 MG/2 ML DISP.SYRIN IV PRN (23:01)
[2019-08-31] MEDS ORDERED: DEXTROSE 50%-WATER 25 GM/50 ML DISP.SYRIN IV PRN ×2 (23:06)
[2019-08-31] MEDS ORDERED: GLUCAGON,HUMAN RECOMB 1 MG INJ IM PRN (23:06)
[2019-08-31] MEDS ORDERED: DEXTROSE 40% GEL 15 GM TUBE PO PRN ×2 (23:06)
--- NOTE | 2019-08-31 23:07 | PDOC H&P ---
History of Present Illness Admission Date/PCP: 08/31/19 19:43 RICHARD MEANS Patient complains of: Encephalopathy History of Present Illness: KAREN BOONE is a 73 year old male who presented in transfer from [facility] for ongoing care of his acute encephalopathy. Patient was seen in our emergency room on 08/17/2019 and was found to be in septic shock with acute kidney injury and an aspiration pneumonia resulting in his transfer to the [facility] for treatment. Patient has been hospitalized there since that time with resolution of his respiratory issues, kidney injury and sepsis. Patient has experienced ongoing continued encephalopathy throughout his hospitalization there and has been subsequently [facility]. Due to the patient's severe encephalopathy he is unable to provide historical or other input into his medical care. Past Medical History Past Medical History: Due to the patient's severe encephalopathy he is unable to provide useful or accurate information to his medical history including his past medical history, social history, surgical history and family history. The information presented here is from the best available reliable source at the time of my evaluation. Cardiac Medical History: Reports: Hypertension - on meds Denies: Coronary Artery Disease, Myocardial Infarction Pulmonary Medical History: Denies: Asthma, Bronchitis, Chronic Obstructive Pulmonary Disease (COPD), Pneumonia EENT Medical History: Reports: Cataracts Denies: Ears - Hearing aids Neurological Medical History: Denies: Hemorrhagic CVA, Ischemic CVA, Seizures Endocrine Medical History: Reports: Diabetes Mellitus Type 2 Denies: Diabetes Mellitus Type 1, Hyperthyroidism, Hypothyroidism Renal/ Medical History: Denies: Chronic Kidney Disease, Nephrolithiasis Malignancy Medical History: Reports: None GI Medical History: Reports: Cirrhosis Denies: Hepatitis, Hiatal Hernia Musculoskeltal Medical History: Reports: Arthritis Denies: Gout Skin Medical History: Denies: Eczema, Psoriasis Psychiatric Medical History: Reports: Alcohol Dependency, Depression Denies: Substance Abuse, Tobacco Dependency Traumatic Medical History: Reports: None Hematology: Denies: Anemia, Bleeding Tendencies Infectious Medical History: Reports: None Past Surgical History Past Surgical History: Due to the patient's severe encephalopathy he is unable to provide useful or accurate information to his medical history including his past medical history, social history, surgical history and family history. The information presented here is from the best available reliable source at the time of my evaluation. Past Surgical History: Reports: Orthopedic Surgery - Joint surgery, Other - Eye surgery Social History Information Source: [facility] Records Lives with: Alone Smoking Status: Former Smoker Electronic Cigarette use?: No Frequency of Alcohol Use: Heavy Hx Recreational Drug Use: No Drugs: None Hx Prescription Drug Abuse: No Past Social History Note: Due to the patient's severe encephalopathy he is unable to provide useful or accurate information to his medical history including his past medical history, social history, surgical history and family history. The information presented here is from the best available reliable source at the time of my evaluation. - Advance Directive Resuscitation Status: Full Code Surrogate healthcare decision maker:: Aylin Nevrosaura Family History Family History: Due to the patient's severe encephalopathy he is unable to provide useful or accurate information to his medical history including his past medical history, social history, surgical history and family history. The information presented here is from the best available reliable source at the time of my evaluation. Parental Family History Reviewed: No - No available history Children Family History Reviewed: No Sibling(s) Family History Reviewed.: No Medication/Allergy Home Medications: Unobtainable 08/19/19 Allergies/Adverse Reactions: No Known Allergies Allergy (Unverified 08/25/13 08:08) Review of Systems ROS unobtainable: Due to mental status Physical Exam Vital Signs: Temp Pulse Resp BP Pulse Ox 98.3 F 82 16 119/83 98 08/31/19 21:28 08/31/19 21:28 08/31/19 21:28 08/31/19 21:28 08/31/19 21:28 Intake & Output 08/29/19 08/30/19 08/31/19 23:59 23:59 23:59 Weight 78.4 kg General appearance: PRESENT: no acute distress, cooperative, disheveled Head exam: PRESENT: atraumatic, normocephalic Eye exam: PRESENT: conjunctiva pink. ABSENT: conjunctival injection, scleral icterus Ear exam: PRESENT: normal external ear exam. ABSENT: bleeding, drainage Mouth exam: PRESENT: dry mucosa, neck supple Neck exam: ABSENT: thyromegaly, tracheal deviation Respiratory exam: PRESENT: clear to auscultation yanet, symmetrical, unlabored Cardiovascular exam: PRESENT: RRR. ABSENT: clicks, gallop, rubs Pulses: PRESENT: normal radial pulses, normal dorsalis pedis pul Vascular exam: PRESENT: normal capillary refill. ABSENT: pallor GI/Abdominal exam: PRESENT: normal bowel sounds, soft Rectal exam: PRESENT: deferred Extremities exam: PRESENT: other - 3+ pitting edema to the upper thighs bilaterally. ABSENT: joint swelling, tenderness Musculoskeletal exam: ABSENT: deformity, dislocation Neurological exam: PRESENT: altered - Confused and nonsensical and speech attempts, appears to be unaware of his environment., awake Psychiatric exam: PRESENT: agitated - Minimally agitated, other - Confused Skin exam: PRESENT: dry, intact, warm. ABSENT: jaundice, rash, urticaria Assessment and Plan - Diagnosis (1) Encephalopathy acute Is this a current diagnosis for this admission?: Yes (2) Adrenal insufficiency Is this a current diagnosis for this admission?: Yes (3) Diabetes mellitus type 2 in nonobese Is this a current diagnosis for this admission?: Yes (4) Alcohol use disorder, severe, in early remission, dependence Is this a current diagnosis for this admission?: Yes (5) Alcoholic cirrhosis of liver with ascites Is this a current diagnosis for this admission?: Yes (6) Coronary artery disease Qualifiers: Coronary Disease-Associated Artery/Lesion type: unspecified vessel or lesion type [place] vs. transplanted heart: ruby heart Associated angina: without angina Qualified Code(s): I25.10 - Atherosclerotic heart disease of ruby coronary artery without angina pectoris Is this a current diagnosis for this admission?: Yes (7) Hyperlipidemia Qualifiers: Hyperlipidemia type: unspecified Qualified Code(s): E78.5 - Hyperlipidemia, unspecified Is this a current diagnosis for this admission?: Yes (8) Coagulopathy Is this a current diagnosis for this admission?: Yes (9) Thrombocytopenia Is this a current diagnosis for this admission?: Yes - Plan Summary Summary: Patient is admitted to the medical floor where he will receive supportive and symptomatic cares per routine. He will be treated with Valium 10 mg IV every hour as needed for seizures or severe agitation. He will be treated with Thorazine 25 mg IV every 8 hours as needed for severe restlessness or hallucinations. He will be continued on diuretic therapy using oral diuretics. His ongoing weaning for his adrenal insufficiency treatment will be continued with Solu-Cortef 20 mg p.o. every morning and 10 mg p.o. every evening. business services coordinator will be consulted to aid in placement. - Time Time Spent with patient: 15-24 minutes Medications reviewed and adjusted accordingly: Yes Anticipated discharge: SNF - Inpatient Certification Based on my medical assessment, after consideration of the patient's comorbidities, presenting symptoms, or acuity I expect that the services needed warrant INPATIENT care.: Yes I certify that my determination is in accordance with my understanding of Medicare's requirements for reasonable and necessary INPATIENT services [42 CFR 412.3e].: Yes Medical Necessity: Significant Comorbidiites Make Outpatient Treatment Too Risky , Need Close Monitoring Due to Risk of Patient Decompensation, Risk of Complication if Not Cared For in Hospital
[2019-08-31] MEDS ORDERED: ACETAMINOPHEN 325 MG TABLET NG PRN (23:23)
--- NOTE | 2019-09-01 00:01 | RADIOLOGY REPORT (SQ) ---
EXAM DESCRIPTION: AP portable view of the chest CLINICAL HISTORY: 73 years Male, Aspiration pneumonia COMPARISON: Single view of the chest 08/19/2019 FINDINGS: Lungs: Lung volumes are low with opacification in the lung bases bilaterally. Probable left pleural effusion. No pneumothorax. Overall there is improvement in lung aeration. Mediastinum: Cardiac and mediastinal silhouette remain enlarged. The endotracheal tube is been removed. Right IJ central line and NG tube remain in place. Bones: Osseous structures are unchanged in appearance IMPRESSION: 1. Improvement in lung aeration though there is persistent volume loss in the lung bases. 2. Interval extubation.
--- NOTE | 2019-09-01 02:22 | RADIOLOGY REPORT (SQ) ---
EXAM DESCRIPTION: XR CHEST 1 VIEW COMPLETED DATE/TME: 09/01/2019 00:00 CLINICAL HISTORY: 73 years, Male, Confirm NG Tube placement COMPARISON: 08/31/2019 chest x-ray NUMBER OF VIEWS: 1 TECHNIQUE: Portable chest LIMITATIONS: None. FINDINGS: Enteric tube and central venous catheter remain in place. Patchy bibasilar airspace opacities. No pneumothorax IMPRESSION: Little interval change copyright 2011 [employer]- All Rights Reserved
[2019-09-01] MEDS ORDERED: PANTOPRAZOLE SODIUM 40 MG TABLET.DR PO SCH (06:00)
[2019-09-01] MEDS: HEPARIN SOD (PORCINE) 5,000 UNIT/ML 1 ML VIAL SUBCUT SCH ×3 (06:51→21:35)
[2019-09-01] MEDS: PANTOPRAZOLE SODIUM 40 MG PACKET.DR NG SCH ×2 (06:51→16:48)
[2019-09-01 07:19] LABS: INTERNATIONAL RATION (INR) 1.61; MEAN CORPUSCULAR HEMOGLOBIN 37.4 pg (27.0-33.4); MEAN CORPUSCULAR HGB CONC 33.5 g/dL (32.0-36.0); PLATELET COUNT 105 10^3/uL (150-450); PROTHROMBIN TIME 19.3 SEC (11.4-15.4); RED BLOOD COUNT 2.06 10^6/uL (4.35-5.55); RED CELL DISTRIBUTION WIDTH 21.1 % (11.5-14.0)
[2019-09-01 07:30] LABS: ALBUMIN 2.5 g/dL (3.5-5.0); ALKALINE PHOSPHATASE 126 U/L (38-126); ASPARTATE AMINO TRANSFERASE 38 U/L (17-59); BILIRUBIN,DIRECT 1.1 mg/dL (0.0-0.4); BILIRUBIN,TOTAL 2.9 mg/dL (0.2-1.3); BLOOD UREA NITROGEN 62 mg/dL (7-20); CALCIUM 7.8 mg/dL (8.4-10.2); CHLORIDE 117 mmol/L (98-107); GLUCOSE 235 mg/dL (75-110); PHOSPHORUS 3.5 mg/dL (2.5-4.5)
[2019-09-01 07:35] LABS: CARBON DIOXIDE 36 mmol/L (22-30)
[2019-09-01 07:39] LABS: ANION GAP 2 (5-19)
[2019-09-01 07:40] LABS: POTASSIUM 2.7 mmol/L (3.6-5.0)
[2019-09-01 07:47] LABS: MEAN CORPUSCULAR VOLUME 112 fl (80-97)
[2019-09-01 07:49] LABS: HEMOGLOBIN 7.7 g/dL (13.5-17.0)
[2019-09-01] MEDS ORDERED: HYDROCORTISONE 10 MG TABLET PO SCH ×2 (08:00→22:00)
[2019-09-01] MEDS: INSULIN REG, HUMAN 100 UNIT/ML 3 ML VIAL (PYX) SUBCUT SCH ×4 (08:30→21:35)
[2019-09-01] MEDS: POTASSI CL 20 MEQ/50 ML RIDER 20 MEQ/50 ML RTUPB IV SCH ×3 (08:31→12:32)
[2019-09-01] MEDS: HYDROCORTISONE 10 MG TABLET NG SCH (08:32)
[2019-09-01] MEDS ORDERED: SPIRONOLACTONE 25 MG TABLET PO SCH (10:00)
[2019-09-01] MEDS ORDERED: TORSEMIDE 20 MG TABLET NG SCH (10:00)
[2019-09-01] MEDS ORDERED: TORSEMIDE 20 MG TABLET PO SCH (10:00)
[2019-09-01] MEDS: THIAMINE HCL 100 MG TABLET PO SCH (10:01)
[2019-09-01] MEDS: SPIRONOLACTONE 25 MG TABLET NG SCH (10:04)
[2019-09-01] MEDS: DOCUSATE SODIUM 100 MG/10 ML UDC PO SCH ×2 (10:22→17:19)
--- NOTE | 2019-09-01 11:03 | PDOC PROGRESS REPORT ---
Subjective Progress Note for:: 09/01/19 Subjective:: The patient is resting in bed. I am able to communicate somewhat in Portuguese. He is not complaining of any pain. He is slow to answer questions. He appears to be resting comfortably. He did have low potassium this morning. Reason For Visit: ENCEPHALOPATHY Physical Exam Vital Signs: Temp Pulse Resp BP Pulse Ox 97.6 F 76 16 115/66 90 L 09/01/19 08:08 09/01/19 08:08 09/01/19 08:08 09/01/19 08:08 09/01/19 08:08 Intake & Output 08/31/19 09/01/19 09/02/19 06:59 06:59 06:59 Intake Total 50 47 Output Total 600 Balance -550 47 Weight 78.4 kg General appearance: PRESENT: no acute distress, cooperative, disheveled, well- developed, well-nourished Head exam: PRESENT: atraumatic, normocephalic Eye exam: PRESENT: conjunctiva pale, scleral icterus Ear exam: PRESENT: normal external ear exam. ABSENT: bleeding, drainage Respiratory exam: PRESENT: rhonchi - Mostly on the right, unlabored. ABSENT: accessory muscle use, prolonged expiratory phas, rales, tachypnea, wheezes Cardiovascular exam: PRESENT: RRR, +S1, +S2, systolic murmur - 3/6 GI/Abdominal exam: PRESENT: normal bowel sounds, soft. ABSENT: distended, tenderness Rectal exam: PRESENT: deferred Extremities exam: ABSENT: pedal edema Musculoskeletal exam: PRESENT: other - Some edema left upper extremity (likely due to wrist bands) Neurological exam: PRESENT: alert, awake, oriented to person, CN II-XII grossly intact Psychiatric exam: PRESENT: flat affect, unusual affect - His affect does suggest some confusion or trepidation about the transfer to a different hospital.. ABSENT: agitated, anxious Skin exam: PRESENT: dry, warm. ABSENT: rash Results Laboratory Results: 09/01/19 06:55 09/01/19 06:55 09/01/19 09/01/19 09/01/19 06:55 06:55 06:55 WBC 8.0 RBC 2.06 L Hgb 7.7 L Hct 23.0 L MCV 112 H MCH 37.4 H MCHC 33.5 RDW 21.1 H Plt Count 105 L Sodium 155.4 H Potassium 2.7 L* Chloride 117 H Carbon Dioxide 36 H Anion Gap 2 L BUN 62 H Creatinine 1.05 Est GFR ( Amer) > 60 Glucose 235 H Calcium 7.8 L Phosphorus 3.5 Magnesium 2.5 H Total Bilirubin 2.9 H AST 38 Alkaline Phosphatase 126 Total Protein 5.0 L Albumin 2.5 L TSH 3.32 Impressions: Chest X-Ray 09/01/19 00:00 IMPRESSION: Little interval change copyright 2011 [employer]- All Rights Reserved Assessment and Plan - Diagnosis (1) Metabolic encephalopathy Is this a current diagnosis for this admission?: Yes Plan: Multifactorial. History of significant alcohol use with subsequent cirrhosis as well as hypernatremia are contributing. We will continue supportive care and monitor closely. (2) Critical illness myopathy Is this a current diagnosis for this admission?: Yes Plan: PT and OT are working with the patient (3) Adrenal insufficiency Is this a current diagnosis for this admission?: Yes Plan: Continue slow hydrocortisone taper (4) Type 2 diabetes mellitus Qualifiers: Diabetes mellitus intermediate teacher insulin use: without intermediate teacher use Diabetes mellitus complication status: with other specified complication Qualified Code(s): E11.69 - Type 2 diabetes mellitus with other specified complication Is this a current diagnosis for this admission?: Yes Plan: We will continue the patient's Lantus and sliding scale. We will adjust based on Accu-Cheks and sliding scale insulin requirements. (5) Hypernatremia Is this a current diagnosis for this admission?: Yes Plan: We will change to D5 W at 150 mL an hour. This should correct his sodium no faster than 0.5 mEq/h. (6) Hyperbilirubinemia Is this a current diagnosis for this admission?: Yes Plan: I reviewed the [facility] notes. They feel that the bilirubin is a combination of cirrhosis and possibly his sepsis. We will continue to monitor. (7) Anemia Qualifiers: Anemia type: unspecified type Qualified Code(s): D64.9 - Anemia, unspecified Is this a current diagnosis for this admission?: Yes Plan: The patient had received transfusions at [facility]. His hemoglobin was low but rechecked and found to be greater than 8.0. We will monitor closely. I will recheck anemia studies including iron, B12 and folic acid. We will try and keep his hemoglobin above 8.0. (8) Hypokalemia Is this a current diagnosis for this admission?: Yes Plan: We will monitor potassium closely. We may need to switch to a potassium containing IV fluid. He is already on potassium chloride through his nasogastric tube. (9) Puncture wound of groin Qualifiers: Encounter type: initial encounter Qualified Code(s): S31.139A - Puncture wound of abdominal wall without foreign body, unspecified quadrant without penetration into peritoneal cavity, initial encounter Is this a current diagnosis for this admission?: Yes Plan: The patient came with a stoma collection bag on his right groin. This is some kind of draining wound. I will review the [facility] records before removing the collection system. - Plan Summary Summary: Patient is admitted to the medical floor where he will receive supportive and symptomatic cares per routine. He will be treated with Valium 10 mg IV every hour as needed for seizures or severe agitation. He will be treated with Thorazine 25 mg IV every 8 hours as needed for severe restlessness or hallucinations. He will be continued on diuretic therapy using oral diuretics. His ongoing weaning for his adrenal insufficiency treatment will be continued w ith Solu-Cortef 20 mg p.o. every morning and 10 mg p.o. every evening. services program manager will be consulted to aid in placement. 09/01/2019-I spoke to the patient's daughter. I reviewed some of his most significant comorbidities as well as prognosis. I told her that the patient will likely never return to an independent living situation. She had discussed the possibilities of an assisted living facility. I told her that he would likely need jail facility first. She is not in the [facility] but stated that she would prefer her father to be placed in a local facility. - Time Time Spent with patient: 25-34 minutes Medications reviewed and adjusted accordingly: Yes Anticipated discharge: SNF
[2019-09-01 12:23] LABS: APPEARANCE,URINE CLOUDY; BILIRUBIN,URINE NEGATIVE (NEGATIVE); COLOR,URINE YELLOW; GLUCOSE, URINE >=500 mg/dL (NEGATIVE); KETONES,URINE NEGATIVE (NEGATIVE); LEUKOCYTE ESTERASE,URINE SMALL (NEGATIVE); NITRITE,URINE NEGATIVE (NEGATIVE); PROTEIN,URINE NEGATIVE (NEGATIVE); URINE SPECIFIC GRAVITY 1.016; UROBILINOGEN,URINE NEGATIVE mg/dL (<2.0)
[2019-09-01 14:10] LABS: PATH REVIEW PATHOLOGIST REVIEWED
[2019-09-01 17:53] LABS: HEMOGLOBIN 8.3 g/dL (13.5-17.0); MEAN CORPUSCULAR HEMOGLOBIN 37.1 pg (27.0-33.4); MEAN CORPUSCULAR HGB CONC 33.4 g/dL (32.0-36.0); MEAN CORPUSCULAR VOLUME 111 fl (80-97); RED BLOOD COUNT 2.25 10^6/uL (4.35-5.55); RED CELL DISTRIBUTION WIDTH 21.4 % (11.5-14.0)
[2019-09-01 17:54] LABS: PLATELET COUNT 96 10^3/uL (150-450)
[2019-09-01 18:09] LABS: BLOOD UREA NITROGEN 58 mg/dL (7-20); CALCIUM 7.9 mg/dL (8.4-10.2); CHLORIDE 121 mmol/L (98-107); GLUCOSE 193 mg/dL (75-110); POTASSIUM 3.2 mmol/L (3.6-5.0)
[2019-09-01 18:14] LABS: ANION GAP 6 (5-19); CARBON DIOXIDE 30 mmol/L (22-30)
[2019-09-01] MEDS: DEXTROSE 5%-WATER 1000 ML 1,000 ML IV PRN (18:55)
[2019-09-01] MEDS: POTASSIUM CHLORIDE 20 MEQ PACKET NG SCH (21:36)
[2019-09-01] MEDS: MELATONIN 5 MG TABLET NG SCH (21:36)
[2019-09-01] MEDS ORDERED: MELATONIN 5 MG TABLET PO SCH (22:00)
[2019-09-01] MEDS ORDERED: HYDROCORTISONE 10 MG TABLET NG SCH (22:00)
[2019-09-01] MEDS ORDERED: INSULIN GLARGINE,HUM.REC.ANLOG 1,000 UNIT/10 ML VIAL SUBCUT SCH (22:00)
[2019-09-02] MEDS: HEPARIN SOD (PORCINE) 5,000 UNIT/ML 1 ML VIAL SUBCUT SCH ×3 (05:18→23:00)
[2019-09-02] MEDS: POTASSIUM CHLORIDE 20 MEQ PACKET NG SCH ×3 (05:21→23:00)
[2019-09-02] MEDS: PANTOPRAZOLE SODIUM 40 MG PACKET.DR NG SCH ×2 (05:21→16:22)
[2019-09-02 07:40] LABS: HEMATOCRIT 22.6 % (37.9-51.0); MEAN CORPUSCULAR HEMOGLOBIN 36.9 pg (27.0-33.4); MEAN CORPUSCULAR HGB CONC 32.5 g/dL (32.0-36.0); MEAN CORPUSCULAR VOLUME 114 fl (80-97); RED BLOOD COUNT 1.99 10^6/uL (4.35-5.55); RED CELL DISTRIBUTION WIDTH 21.9 % (11.5-14.0); WHITE BLOOD COUNT 9.5 10^3/uL (4.0-10.5)
[2019-09-02 07:48] LABS: ALBUMIN 2.3 g/dL (3.5-5.0); ALKALINE PHOSPHATASE 223 U/L (38-126); ANION GAP 5 (5-19); ASPARTATE AMINO TRANSFERASE 41 U/L (17-59); BILIRUBIN,DIRECT 1.1 mg/dL (0.0-0.4); BILIRUBIN,TOTAL 2.4 mg/dL (0.2-1.3); BLOOD UREA NITROGEN 56 mg/dL (7-20); CALCIUM 7.5 mg/dL (8.4-10.2); CARBON DIOXIDE 32 mmol/L (22-30); CHLORIDE 116 mmol/L (98-107); GLUCOSE 381 mg/dL (75-110); POTASSIUM 3.3 mmol/L (3.6-5.0); TOTAL PROTEIN 4.9 g/dL (6.3-8.2)
[2019-09-02 07:52] LABS: HEMOGLOBIN 7.4 g/dL (13.5-17.0)
[2019-09-02 07:53] LABS: PLATELET COUNT 85 10^3/uL (150-450)
[2019-09-02] MEDS: DOCUSATE SODIUM 100 MG/10 ML UDC PO SCH (09:04)
[2019-09-02] MEDS: INSULIN REG, HUMAN 100 UNIT/ML 3 ML VIAL (PYX) SUBCUT SCH ×4 (09:07→23:00)
[2019-09-02] MEDS: SPIRONOLACTONE 25 MG TABLET NG SCH (09:08)
[2019-09-02] MEDS: THIAMINE HCL 100 MG TABLET PO SCH (09:09)
[2019-09-02] MEDS: HYDROCORTISONE 10 MG TABLET NG SCH (09:09)
[2019-09-02] MEDS ORDERED: TORSEMIDE 20 MG TABLET NG SCH (10:00)
[2019-09-02] MEDS: DEXTROSE 5%-WATER 1000 ML 1,000 ML IV PRN (11:41)
[2019-09-02] MEDS ORDERED: ACETAMINOPHEN SOLN 325 MG/10.15 ML UDCUP NG PRN (13:58)
[2019-09-02] MEDS ORDERED: PROMETHAZINE HCL INJ 25 MG/1 ML VIAL IV PRN (14:00)
[2019-09-02] MEDS ORDERED: DEXTROSE 5%-WATER 1000 ML 1,000 ML IV PRN (14:27)
[2019-09-02] MEDS ORDERED: POTASSI CL 20 MEQ/50 ML RIDER 20 MEQ/50 ML RTUPB IV ONE (15:30)
[2019-09-02 15:45] LABS: HEMATOCRIT 22.8 % (37.9-51.0); MEAN CORPUSCULAR HEMOGLOBIN 37.1 pg (27.0-33.4); MEAN CORPUSCULAR HGB CONC 32.7 g/dL (32.0-36.0); RED BLOOD COUNT 2.01 10^6/uL (4.35-5.55); RED CELL DISTRIBUTION WIDTH 21.5 % (11.5-14.0); WHITE BLOOD COUNT 10.3 10^3/uL (4.0-10.5)
[2019-09-02 15:49] LABS: HEMOGLOBIN 7.5 g/dL (13.5-17.0); MEAN CORPUSCULAR VOLUME 114 fl (80-97); PLATELET COUNT 78 10^3/uL (150-450)
[2019-09-02] MEDS: DOCUSATE SODIUM 100 MG/10 ML UDC NG SCH (17:30)
--- NOTE | 2019-09-02 20:57 | PDOC PROGRESS REPORT ---
Subjective Progress Note for:: 09/02/19 Subjective:: The patient exhibits no significant change in his mental status. He opens his eyes and he will look at you. Conversation is somewhat limited. Nursing reports no acute issues except his Accu-Cheks. On the dextrose solution his Accu-Cheks are quite elevated. Reason For Visit: ENCEPHALOPATHY Physical Exam Vital Signs: Temp Pulse Resp BP Pulse Ox 97.2 F 81 17 93/56 L 100 09/02/19 18:17 09/02/19 18:17 09/02/19 18:17 09/02/19 18:17 09/02/19 18:17 Intake & Output 09/01/19 09/02/19 09/03/19 06:59 06:59 06:59 Intake Total 50 3257 2808 Output Total 600 940 800 Balance -550 2317 2007 Weight 78.4 kg 81.9 kg General appearance: PRESENT: no acute distress, cooperative, well-developed Head exam: PRESENT: atraumatic, normocephalic Eye exam: PRESENT: scleral icterus Ear exam: PRESENT: normal external ear exam. ABSENT: bleeding, drainage Teeth exam: PRESENT: poor dentation Respiratory exam: PRESENT: clear to auscultation yanet - Anteriorly, symmetrical, unlabored. ABSENT: rales, rhonchi, tachypnea, wheezes Cardiovascular exam: PRESENT: RRR, +S1, +S2 GI/Abdominal exam: PRESENT: distended - Slightly distended, normal bowel sounds, soft. ABSENT: tenderness Rectal exam: PRESENT: deferred Gentrourinary exam: PRESENT: indwelling catheter Extremities exam: PRESENT: other - The drainage bag in the right groin was carefully removed. This device clearly had not been changed for some time as portions of the way for had liquefied. After an aggressive cleaning of the groin area it was found that the patient has a puncture site. This is likely from a central venous catheter. With his liver disease he most likely had ascites and profuse drainage from the site. At this time there is no active drainage and I could not express any drainage. Neurological exam: PRESENT: alert - His level of alertness does vary., awake, oriented to person Psychiatric exam: PRESENT: flat affect. ABSENT: agitated, anxious Skin exam: PRESENT: dry, jaundice, warm Results Laboratory Results: 09/02/19 15:19 09/02/19 07:00 09/02/19 09/02/19 09/02/19 07:00 07:00 07:00 WBC 9.5 RBC 1.99 L Hgb 7.4 L Hct 22.6 L MCV 114 H MCH 36.9 H MCHC 32.5 RDW 21.9 H Plt Count 85 L Sodium 153.3 H Potassium 3.3 L Chloride 116 H Carbon Dioxide 32 H Anion Gap 5 BUN 56 H Creatinine 1.02 Est GFR ( Amer) > 60 Glucose 381 H Calcium 7.5 L Magnesium 2.4 H Total Bilirubin 2.4 H AST 41 Alkaline Phosphatase 223 H Ammonia < 8.7 L Total Protein 4.9 L Albumin 2.3 L Blood Type Antibody Screen 09/02/19 09/02/19 11:15 15:19 WBC 10.3 RBC 2.01 L Hgb 7.5 L Hct 22.8 L MCV 114 H MCH 37.1 H MCHC 32.7 RDW 21.5 H Plt Count 78 L Sodium Potassium Chloride Carbon Dioxide Anion Gap BUN Creatinine Est GFR ( Amer) Glucose Calcium Magnesium Total Bilirubin AST Alkaline Phosphatase Ammonia Total Protein Albumin Blood Type O POSITIVE Antibody Screen NEGATIVE Impressions: Chest X-Ray 09/01/19 00:00 IMPRESSION: Little interval change copyright 2011 [employer]- All Rights Reserved Assessment and Plan - Diagnosis (1) Metabolic encephalopathy Is this a current diagnosis for this admission?: Yes Plan: Still with altered mental status however it is difficult to know what his baseline will be. He has multiple risk factors for altered mental status on a chronic basis including his heavy alcohol use, respiratory failure and critical illness. We will continue supportive care and monitor his improvement. (2) Critical illness myopathy Is this a current diagnosis for this admission?: Yes Plan: Profoundly weak. Physical therapy will be working with the patient. (3) Adrenal insufficiency Is this a current diagnosis for this admission?: Yes Plan: I have decreased his hydrocortisone to 10 mg in the morning and 5 mg in the afternoon. We will continue this dose for 7 to 10 days before changing. (4) Type 2 diabetes mellitus Qualifiers: Diabetes mellitus long goods drier insulin use: without skilled nursing use Diabetes mellitus complication status: with other specified complication Qualified Code(s): E11.69 - Type 2 diabetes mellitus with other specified complication Is this a current diagnosis for this admission?: Yes Plan: Because of the D5W used to treat his hypernatremia his Accu-Cheks are quite high. He is on tube feeds. I am going to give him 200 mL of water every 4 hours through his NG tube so that I may decrease the IV. Hopefully I can change his solution to normal saline or even better provide all of his fluid needs th rough his NG tube. For the time being I will increase his Lantus. (5) Hypernatremia Is this a current diagnosis for this admission?: Yes Plan: Continues to slowly improve. I will adjust the D5W accordingly. (6) Hyperbilirubinemia Is this a current diagnosis for this admission?: Yes Plan: Bilirubin slightly better. Continue to monitor. (7) Anemia Qualifiers: Anemia type: unspecified type Qualified Code(s): D64.9 - Anemia, unspecified Is this a current diagnosis for this admission?: Yes Plan: The patient's hemoglobin was only 7.4 this morning. We did repeat the CBC to ensure that there was no dilution from the central venous line. It was confirmed and therefore I have ordered 2 units of packed red blood cells. The patient's daughter was unable to be reached and therefore, due to the benefits of transfusion outweighing the risks I authorize a transfusion and the consent was cosigned by a second physician. I have ordered iron studies. We will monitor the patient's hemoglobin and provide appropriate supplements. (8) Hypokalemia Is this a current diagnosis for this admission?: Yes Plan: With all of the free water we are needing to keep up with his serum potassium. He is on potassium through the nasogastric tube and I will give him 20 mEq IV t jorden to get him back into the normal range. (9) Hypermagnesemia Is this a current diagnosis for this admission?: Yes Plan: We will continue to monitor. On balance this is likely related to the electrolytes and glucose. No acute intervention at this time. (10) Puncture wound of groin Qualifiers: Encounter type: initial encounter Qualified Code(s): S31.139A - Puncture wound of abdominal wall without foreign body, unspecified quadrant without penetration into peritoneal cavity, initial encounter Is this a current diagnosis for this admission?: Yes Plan: As noted above the collection device was removed. There is a small puncture that appears to have stopped draining. We will apply an ABD pad for tonight and monitor. If the drainage is sufficiently low we will alter the dressings to either an Allevyn foam dressing or possibly apply a Steri-Strip and gauze dressing. - Plan Summary Summary: Patient is admitted to the medical floor where he will receive supportive and symptomatic cares per routine. He will be treated with Valium 10 mg IV every hour as needed for seizures or severe agitation. He will be treated with Thorazine 25 mg IV every 8 hours as needed for severe restlessness or hallucinations. He will be continued on diuretic therapy using oral diuretics. His ongoing weaning for his adrenal insufficiency treatment will be continued w ith Solu-Cortef 20 mg p.o. every morning and 10 mg p.o. every evening. software engineer web services will be consulted to aid in placement. 09/01/2019-I spoke to the patient's daughter. I reviewed some of his most significant comorbidities as well as prognosis. I told her that the patient will likely never return to an independent living situation. She had discussed the possibilities of an assisted living facility. I told her that he would likely need [facility] facility first. She is not in the [facility] but stated that she would prefer her father to be placed in a local facility. - Time Time Spent with patient: 25-34 minutes Medications reviewed and adjusted accordingly: Yes Anticipated discharge: SNF
[2019-09-02] MEDS ORDERED: INSULIN GLARGINE,HUM.REC.ANLOG 1,000 UNIT/10 ML VIAL SUBCUT SCH (22:00)
[2019-09-02] MEDS ORDERED: HYDROCORTISONE 10 MG TABLET NG SCH (22:00)
[2019-09-02] MEDS: MELATONIN 5 MG TABLET NG SCH (23:00)
[2019-09-02] MEDS ORDERED: HYDROCORTISONE 10 MG TABLET ONE (23:14)
[2019-09-03 02:24] LABS: ABSOLUTE RETICS # 0.093 10^6/uL (0.028-0.122); RETICULOCYTE COUNT (AUTO) 2.87 % (0.66-2.85)
[2019-09-03 02:33] LABS: IRON(TIBC) 67.2 ug/dL (49-181)
[2019-09-03 02:55] LABS: ABSOLUTE EOSINOPHILS # (AUTO) 0.2 10^3/uL (0.0-0.6); ABSOLUTE LYMPHOCYTES (AUTO) 0.6 10^3/uL (0.5-4.7); ABSOLUTE MONOCYTES (AUTO) 0.4 10^3/uL (0.1-1.4); ABSOLUTE NEUT (AUTO) 9.5 10^3/uL (1.7-8.2); ANION GAP 5 (5-19); BASOPHILS % (AUTO) 0.3 % (0-2); BLOOD UREA NITROGEN 55 mg/dL (7-20); CALCIUM 7.5 mg/dL (8.4-10.2); CARBON DIOXIDE 29 mmol/L (22-30); CHLORIDE 116 mmol/L (98-107); EOSINOPHILS % (AUTO) 1.8 % (0-6); GLUCOSE 315 mg/dL (75-110); LYMPHOCYTES % (AUTO) 5.6 % (13-45); MEAN CORPUSCULAR HEMOGLOBIN 31.7 pg (27.0-33.4); MEAN CORPUSCULAR HGB CONC 33.2 g/dL (32.0-36.0); MONOCYTES % (AUTO) 3.7 % (3-13); POTASSIUM 3.7 mmol/L (3.6-5.0); RED BLOOD COUNT 3.25 10^6/uL (4.35-5.55); RED CELL DISTRIBUTION WIDTH 36.1 % (11.5-14.0); SEGMENTED NEUTROPHILS % (AUTO) 88.6 % (42-78); TOTAL CELLS COUNTED % (AUTO) 100 %; WHITE BLOOD COUNT 10.8 10^3/uL (4.0-10.5)
[2019-09-03 03:20] LABS: HEMOGLOBIN 10.3 g/dL (13.5-17.0)
[2019-09-03 03:21] LABS: MEAN CORPUSCULAR VOLUME 96 fl (80-97); PLATELET COUNT 68 10^3/uL (150-450)
[2019-09-03] MEDS: DEXTROSE 5%-WATER 1000 ML 1,000 ML IV PRN ×2 (03:31→12:14)
[2019-09-03 03:33] LABS: ANISOCYTOSIS 4+; TEAR DROP CELLS SLIGHT
[2019-09-03 03:34] LABS: PLATELET COMMENT DECREASED; SCHISTOCYTES 1+
[2019-09-03 03:36] LABS: OVALOCYTES 1+
[2019-09-03 03:39] LABS: FOLATE 5.44 ng/mL (>2.76)
[2019-09-03] MEDS: POTASSIUM CHLORIDE 20 MEQ PACKET NG SCH ×3 (05:44→22:56)
[2019-09-03] MEDS: HEPARIN SOD (PORCINE) 5,000 UNIT/ML 1 ML VIAL SUBCUT SCH ×3 (05:44→22:20)
[2019-09-03] MEDS: PANTOPRAZOLE SODIUM 40 MG PACKET.DR NG SCH ×2 (05:44→16:39)
[2019-09-03] MEDS ORDERED: HYDROCORTISONE 10 MG TABLET NG SCH (08:00)
[2019-09-03] MEDS: INSULIN REG, HUMAN 100 UNIT/ML 3 ML VIAL (PYX) SUBCUT SCH ×4 (08:20→22:59)
[2019-09-03] MEDS ORDERED: INSULIN GLARGINE,HUM.REC.ANLOG 1,000 UNIT/10 ML VIAL SUBCUT SCH ×2 (10:00→22:00)
[2019-09-03] MEDS ORDERED: TORSEMIDE 20 MG TABLET PO SCH (10:00)
[2019-09-03] MEDS: SPIRONOLACTONE 25 MG TABLET NG SCH ×3 (11:14→22:56)
[2019-09-03] MEDS: DOCUSATE SODIUM 100 MG/10 ML UDC NG SCH ×2 (11:16→17:08)
[2019-09-03] MEDS: THIAMINE HCL 100 MG TABLET NG SCH (11:17)
[2019-09-03] MEDS ORDERED: DEXTROSE 5%-WATER 1000 ML 1,000 ML IV PRN (14:52)
[2019-09-03] MEDS ORDERED: FUROSEMIDE INJ/PF 20 MG/2 ML SDV IV ONE ×2 (14:56→19:00)
--- NOTE | 2019-09-03 15:09 | PDOC PROGRESS REPORT ---
Subjective Progress Note for:: 09/03/19 Subjective:: Continues to drain serous fluid quite profusely. In addition the patient's scrotum is more swollen and there is an abraded area on the posterior aspect. The perineum is irritated as well. Despite making progress with the serum sodium the patient's glucose levels are extremely high. The patient is extremely lethargic. Yesterday he did respond when I greeted him in [place]. Today there was a blank stare with no significant response. Nursing also reports that he was exhibiting large residuals from his bolus tube feeds. Reason For Visit: ENCEPHALOPATHY Physical Exam Vital Signs: Temp Pulse Resp BP Pulse Ox 97.8 F 87 16 100/50 L 98 09/03/19 11:11 09/03/19 07:46 09/03/19 11:11 09/03/19 11:11 09/03/19 07:46 Intake & Output 09/02/19 09/03/19 09/04/19 06:59 06:59 06:59 Intake Total 3257 4893 1300 Output Total 940 1600 300 Balance 2317 3293 1000 Weight 81.9 kg 84.6 kg General appearance: PRESENT: no acute distress, well-developed. ABSENT: cooperative - Too lethargic Head exam: PRESENT: atraumatic, normocephalic Eye exam: PRESENT: conjunctiva pale, scleral icterus Ear exam: PRESENT: normal external ear exam. ABSENT: bleeding, drainage Respiratory exam: PRESENT: clear to auscultation yanet - Anteriorly, symmetrical, unlabored, other - Shallow inspirations.. ABSENT: accessory muscle use, pr olonged expiratory phas, rales, tachypnea, wheezes Cardiovascular exam: PRESENT: RRR, +S1, +S2 GI/Abdominal exam: PRESENT: ascites, distended, hypoactive bowel sounds, soft. ABSENT: guarding, tenderness Rectal exam: PRESENT: deferred Gentrourinary exam: PRESENT: lesions - Abraded area posterior scrotum, scrotal swelling, indwelling catheter Extremities exam: PRESENT: pedal edema, +2 edema Musculoskeletal exam: ABSENT: ambulatory Neurological exam: PRESENT: altered, awake, oriented to person - He does tend to respond to his name but it is very difficult to assess further orientation. ABSENT: alert Psychiatric exam: PRESENT: unusual affect. ABSENT: agitated, anxious Focused psych exam: PRESENT: other - Very lethargic almost to catatonia Skin exam: PRESENT: other - Perineal/scrotal irritation as noted above. Results Laboratory Results: 09/03/19 01:50 09/03/19 01:50 09/02/19 09/02/19 09/03/19 11:15 15:19 01:50 WBC 10.3 Cancelled RBC 2.01 L Cancelled Hgb 7.5 L Cancelled Hct 22.8 L Cancelled MCV 114 H Cancelled MCH 37.1 H Cancelled MCHC 32.7 Cancelled RDW 21.5 H Cancelled Plt Count 78 L Cancelled Seg Neutrophils % Retic Count (auto) 2.87 H Sodium Potassium Chloride Carbon Dioxide Anion Gap BUN Creatinine Est GFR ( Amer) Glucose Calcium Magnesium Iron TIBC % Saturation Ferritin Vitamin B12 Folate Blood Type O POSITIVE Antibody Screen NEGATIVE 09/03/19 09/03/19 09/03/19 01:50 01:50 01:50 WBC 10.8 H RBC 3.25 L Hgb 10.3 L D Hct 31.0 L MCV 96 D MCH 31.7 MCHC 33.2 RDW 36.1 H Plt Count 68 L Seg Neutrophils % 88.6 H Retic Count (auto) Sodium 150.2 H Potassium 3.7 Chloride 116 H Carbon Dioxide 29 Anion Gap 5 BUN 55 H Creatinine 1.01 Est GFR ( Amer) > 60 Glucose 315 H Calcium 7.5 L Magnesium 2.4 H Iron 67.2 TIBC 192 L % Saturation 35 Ferritin 485.00 H Vitamin B12 > 1000.0 H Folate 5.44 Blood Type Antibody Screen Impressions: Chest X-Ray 09/01/19 00:00 IMPRESSION: Little interval change copyright 2011 [employer]- All Rights Reserved Assessment and Plan - Diagnosis (1) Metabolic encephalopathy Is this a current diagnosis for this admission?: Yes Plan: The patient actually seems less responsive today. The patient sodium is down to 150. His ammonia level was negligible. Currently no evidence of infection. The ongoing factors contributing to his encephalopathy could be secondary to his alcohol use, possible episode of hypoxia and the result of the sepsis that he experienced recently. He did not show any marked improvement after his transfusion either. (2) Critical illness myopathy Is this a current diagnosis for this admission?: Yes Plan: Physical therapy has seen the patient. As expected he exhibits profound weakness and difficulty following commands. Physical therapy will continue to work with the patient. There is certainly concern for his level of recovery. It is possible he may never regain significant function. (3) Adrenal insufficiency Is this a current diagnosis for this admission?: Yes Plan: I did decrease his hydrocortisone to 10 mg in the morning and 5 in the evening. It is not likely that this is contributing to his current state but I will increase the dose is back to the 20 and 10 mg that were the regimen he was [facility] from [facility] on. (4) Type 2 diabetes mellitus Qualifiers: Diabetes mellitus long term care social worker insulin use: without long term care social worker use Diabetes mellitus complication status: with other specified complication Qualified Code(s): E11.69 - Type 2 diabetes mellitus with other specified complication Is this a current diagnosis for this admission?: Yes Plan: I have increased the patient's Lantus. I called the pharmacy and sterile water is available. I am going to change the intravenous to sterile water so that I can remove the dextrose. We will need to monitor him closely off of the dextrose to ensure that the increased Lantus dosing does not cause hypoglycemia. We will continue his Glucerna tube feeds at this time. (5) Hypernatremia Is this a current diagnosis for this admission?: Yes Plan: With the D5W at 175 mL an hour his sodium is down to 150. As noted above I am going to change to sterile water and increase his NG free water to 100 mL every 2 hours. Recheck electrolytes tomorrow. (6) Hyperbilirubinemia Is this a current diagnosis for this admission?: Yes Plan: Will recheck bilirubin tomorrow. It was improving slowly. It is difficult to know where it will plateau. (7) Anemia Qualifiers: Anemia type: unspecified type Qualified Code(s): D64.9 - Anemia, unspecified Is this a current diagnosis for this admission?: Yes Plan: The patient's hemoglobin was less than 8 yesterday. He did receive 2 units of packed red blood cells. This will also cause some fluid retention. B12, folate and iron levels were normal. Ferritin is elevated and this is most likely due to his acute illness. Reticulocyte count is elevated and so clearly his body is trying to produce red cells. We will continue to monitor. No evidence of cyn blood loss at this time. (8) Hypokalemia Is this a current diagnosis for this admission?: Yes Plan: Potassium is normal today. Continue potassium chloride 20 mEq through the nasogastric tube every 8 hours. (9) Hypermagnesemia Is this a current diagnosis for this admission?: Yes Plan: Currently stable. No intervention at this time. (10) Puncture wound of groin Qualifiers: Encounter type: initial encounter Qualified Code(s): S31.139A - Puncture wound of abdominal wall without foreign body, unspecified quadrant without penetration into peritoneal cavity, initial encounter Is this a current diagnosis for this admission?: Yes Plan: The puncture wound is draining serous fluid at quite a high rate. It constantly leaks out. It soaks multiple ABD pads a day. We reapplied a collection system. We utilized a wafer with the smallest hole and then attached a colostomy bag for right now. I have asked nursing to see if there is a urostomy bag available in this so we can attach it to a reservoir such as a Guy catheter bag. We will also try and investigate see if they have a fistula drainage bag which tend to be smaller and easier to manipulate. We will also take up less space in the groin. (11) Ascites due to alcoholic cirrhosis Is this a current diagnosis for this admission?: Yes Plan: The patient does appear to have slightly increasing girth. The abdomen cert ainly suggests ascites. I would like to avoid paracentesis because I feel that it will create another leaking puncture wound similar to the right groin. I have increased the Aldactone to 12.5 mg every 8 hours. I have ordered 25 g of albumin with a single IV dose of furosemide to follow. I will see if this is effective for diuresis without creating hypotension. At this point a fluid restriction would only increase his serum sodium. At least by changing to sterile water and removing the dextrose his Accu-Cheks will improve (12) Abrasion of scrotum Qualifiers: Encounter type: initial encounter Qualified Code(s): S30.813A - Abrasion of scrotum and testes, initial encounter Is this a current diagnosis for this admission?: Yes Plan: Due to the marked edema the patient has an irritated area on the back of the scrotum. I will have to do way options for treatment to include the use of Xeroform, foam dressings or barrier cream. Each has their limitations. I will reassess tomorrow. If we can produce aggressive diuresis and decrease his fluid retention it will take pressure off of the scrotum. - Plan Summary Summary: Patient is admitted to the medical floor where he will receive supportive and symptomatic cares per routine. He will be treated with Valium 10 mg IV every hour as needed for seizures or severe agitation. He will be treated with Thorazine 25 mg IV every 8 hours as needed for severe restlessness or hallucinations. He will be continued on diuretic therapy using oral diuretics. His ongoing weaning for his adrenal insufficiency treatment will be continued with Solu-Cortef 20 mg p.o. every morning and 10 mg p.o. every evening. gate services supervisor will be consulted to aid in placement. 09/01/2019-I spoke to the patient's . I reviewed some of his most significant comorbidities as well as prognosis. I told her that the patient will likely never return to an independent living situation. She had discussed the possibilities of an assisted living facility. I told her that he would likely need long term facility first. She is not in the [facility] but stated that she would prefer her father to be placed in a local facility. 09/03/2019-I spoke to Lucas again today. I informed her of the need to transfuse the patient yesterday. As they were unable to contact her I recruited a second physician who agreed with my plan and we both signed the consent for transfusion as the medical benefits outweighed the risk. She was fine with that decision. I also discussed his CODE STATUS. She revealed that they had discussed this issue in the past. Possibly even before his initial hospitalization. She was very clear that he is now to be DO NOT RESUSCITATE. Because of his poor prognosis we did discuss a palliative care consult. In addition I told her that if we do not see improvement over the next several days is very unlikely that the patient will make a meaningful recovery. It seems that as one issue improves another issue declines. Hopefully all of the changes in the treatment plan described above will have a positive impact. I will stay in contact to update her. I believe she will be visiting this weekend and I will try and sit with her for further discussion. - Time Time Spent with patient: 25-34 minutes Medications reviewed and adjusted accordingly: Yes
[2019-09-03] MEDS: ALBUMIN HUMAN 12.5 GM/50 ML RTUINJ IV SCH ×2 (16:39→17:08)
[2019-09-03] MEDS ORDERED: WATER FOR INJECTION STERILE IV PRN (20:00)
[2019-09-03] MEDS: METOCLOPRAMIDE HCL ORAL SOLN 10 MG/10 ML UDCUP NG SCH (22:55)
[2019-09-03] MEDS: MELATONIN 5 MG TABLET NG SCH (22:56)
[2019-09-03] MEDS: HYDROCORTISONE 10 MG TABLET NG SCH (22:56)
[2019-09-03] MEDS ORDERED: MIDODRINE HCL 5 MG TABLET NG PRN (22:58)
[2019-09-04] MEDS: SPIRONOLACTONE 25 MG TABLET NG SCH ×3 (05:26→22:13)
[2019-09-04] MEDS: METOCLOPRAMIDE HCL ORAL SOLN 10 MG/10 ML UDCUP NG SCH (05:26)
[2019-09-04] MEDS: PANTOPRAZOLE SODIUM 40 MG PACKET.DR NG SCH ×2 (05:26→18:15)
[2019-09-04] MEDS: HEPARIN SOD (PORCINE) 5,000 UNIT/ML 1 ML VIAL SUBCUT SCH ×3 (05:27→22:14)
[2019-09-04] MEDS: POTASSIUM CHLORIDE 20 MEQ PACKET NG SCH ×3 (05:27→22:14)
[2019-09-04 07:07] LABS: HEMATOCRIT 26.5 % (37.9-51.0); MEAN CORPUSCULAR HEMOGLOBIN 32.4 pg (27.0-33.4); MEAN CORPUSCULAR VOLUME 95 fl (80-97); RED BLOOD COUNT 2.78 10^6/uL (4.35-5.55); WHITE BLOOD COUNT 8.8 10^3/uL (4.0-10.5)
[2019-09-04 07:31] LABS: ALBUMIN 2.3 g/dL (3.5-5.0); ALKALINE PHOSPHATASE 236 U/L (38-126); ANION GAP 6 (5-19); ASPARTATE AMINO TRANSFERASE 48 U/L (17-59); BILIRUBIN,DIRECT 2.1 mg/dL (0.0-0.4); BILIRUBIN,TOTAL 4.6 mg/dL (0.2-1.3); BLOOD UREA NITROGEN 58 mg/dL (7-20); CALCIUM 7.4 mg/dL (8.4-10.2); CARBON DIOXIDE 29 mmol/L (22-30); CHLORIDE 111 mmol/L (98-107); GLUCOSE 217 mg/dL (75-110); POTASSIUM 4.4 mmol/L (3.6-5.0); TOTAL PROTEIN 4.8 g/dL (6.3-8.2)
[2019-09-04 07:33] LABS: PLATELET COUNT 41 10^3/uL (150-450)
[2019-09-04] MEDS: INSULIN REG, HUMAN 100 UNIT/ML 3 ML VIAL (PYX) SUBCUT SCH ×4 (08:19→22:12)
[2019-09-04] MEDS: HYDROCORTISONE 10 MG TABLET NG SCH ×2 (08:20→22:14)
[2019-09-04] MEDS ORDERED: INSULIN GLARGINE,HUM.REC.ANLOG 1,000 UNIT/10 ML VIAL SUBCUT SCH (10:00)
[2019-09-04] MEDS: DOCUSATE SODIUM 100 MG/10 ML UDC NG SCH ×2 (11:24→18:16)
[2019-09-04] MEDS: THIAMINE HCL 100 MG TABLET NG SCH (11:24)
--- NOTE | 2019-09-04 13:36 | PDOC PROGRESS REPORT ---
Subjective Progress Note for:: 09/04/19 Subjective:: Nursing reports that the patient does get agitated when checking residuals. He is not very interactive during this encounter. He in fact seems to have declined somewhat since yesterday. Reason For Visit: ENCEPHALOPATHY Physical Exam Vital Signs: Temp Pulse Resp BP Pulse Ox 97.8 F 77 20 104/50 L 94 09/04/19 07:00 09/04/19 10:10 09/04/19 07:00 09/04/19 10:10 09/04/19 07:00 Intake & Output 09/03/19 09/04/19 09/05/19 06:59 06:59 06:59 Intake Total 4893 3400 Output Total 1600 1000 150 Balance 3293 2400 -150 Weight 84.6 kg 84.6 kg General appearance: PRESENT: no acute distress - Difficult to know due to his mental state, well-developed, other - Nasogastric tube in place Head exam: PRESENT: atraumatic, normocephalic Eye exam: PRESENT: conjunctiva pale, scleral icterus Ear exam: PRESENT: normal external ear exam. ABSENT: bleeding, drainage Respiratory exam: PRESENT: rhonchi - Coarse rhonchorous breath sounds anteriorly, symmetrical, unlabored. ABSENT: accessory muscle use, prolonged expiratory phas, rales, tachypnea, wheezes Cardiovascular exam: PRESENT: RRR, +S1, +S2 GI/Abdominal exam: PRESENT: diminished bowel sounds, distended - And slightly more tense, tenderness - Difficult to assess. He did not wince to palpation today Rectal exam: PRESENT: deferred Gentrourinary exam: PRESENT: indwelling catheter Extremities exam: PRESENT: +1 edema Musculoskeletal exam: ABSENT: ambulatory Neurological exam: PRESENT: awake, oriented to person - He will respond to his name most of the time. ABSENT: alert, oriented to place, oriented to time, oriented to situation Psychiatric exam: PRESENT: unusual affect. ABSENT: agitated - He does get agitated at times. When checking for residuals the patient will bite down on the nasogastric tube. Focused psych exam: PRESENT: other Skin exam: PRESENT: jaundice Results Laboratory Results: 09/04/19 05:40 09/04/19 05:40 09/04/19 09/04/19 09/04/19 05:40 05:40 05:40 WBC 8.8 RBC 2.78 L Hgb 9.0 L Hct 26.5 L MCV 95 MCH 32.4 MCHC 34.0 RDW 36.0 H Plt Count 41 L Sodium 146.4 H Potassium 4.4 Chloride 111 H Carbon Dioxide 29 Anion Gap 6 BUN 58 H Creatinine 1.26 H Est GFR ( Amer) > 60 Glucose 217 H Calcium 7.4 L Magnesium 2.2 Total Bilirubin 4.6 H GGT 173 H AST 48 Alkaline Phosphatase 236 H Total Protein 4.8 L Albumin 2.3 L Impressions: Chest X-Ray 09/01/19 00:00 IMPRESSION: Little interval change copyright 2011 [employer]- All Rights Reserved Assessment and Plan - Diagnosis (1) Metabolic encephalopathy Is this a current diagnosis for this admission?: Yes Plan: The patient's mental state has not improved and infected a he is somewhat more lethargic. The longer the encephalopathy continues the more likely it is his new baseline. (2) Critical illness myopathy Is this a current diagnosis for this admission?: Yes Plan: Profoundly weak at this time. (3) Adrenal insufficiency Is this a current diagnosis for this admission?: Yes Plan: Hydrocortisone was increased back to his last taper dose of 20 mg in the morning and 10 mg in the evening. It has made no appreciable difference. (4) Type 2 diabetes mellitus Qualifiers: Diabetes mellitus half-way insulin use: without half-way use Diabetes mellitus complication status: with other specified complication Qualified Code(s): E11.69 - Type 2 diabetes mellitus with other specified complication Is this a current diagnosis for this admission?: Yes Plan: His serum glucose Accu-Cheks are still greater than 200. I will increase his Lantus and continue the sliding scale. He continues to receive Glucerna and free water through the NG tube (5) Hypernatremia Is this a current diagnosis for this admission?: Yes Plan: His sodium is down to 146. I did stop all IV fluids at this time due to his significant net positive fluid balance. We will continue to monitor sodium. (6) Hyperbilirubinemia Is this a current diagnosis for this admission?: Yes Plan: Unfortunately the patient's bilirubin is higher. We will continue to monitor. His GGT at alkaline phosphatase are still elevated and his albumin is still low. Also his fluid balance is off of all IV fluids. We may need to dose albumin and furosemide again. (7) Anemia Qualifiers: Anemia type: unspecified type Qualified Code(s): D64.9 - Anemia, unspecified Is this a current diagnosis for this admission?: Yes Plan: Despite receiving 2 units of packed red blood cells the patient's hemoglobin is declining again. He is down to 9.0 from 10.3 yesterday. This supports the nurses observation that there could be coffee ground material in the tube feeds. I have asked to recheck his stool for occult blood. (8) Hypokalemia Is this a current diagnosis for this admission?: Yes Plan: Potassium currently normal. Continue to monitor. (9) Hypermagnesemia Is this a current diagnosis for this admission?: Yes Plan: The magnesium was normal yesterday. We will recheck tomorrow. (10) Puncture wound of groin Qualifiers: Encounter type: initial encounter Qualified Code(s): S31.139A - Puncture wound of abdominal wall without foreign body, unspecified quadrant without penetration into peritoneal cavity, initial encounter Is this a current diagnosis for this admission?: Yes Plan: Still leaking serous fluid (11) Ascites due to alcoholic cirrhosis Is this a current diagnosis for this admission?: Yes Plan: Does not appear to be improving despite increasing diuresis. I have discontinued all IV fluids. A paracentesis is unlikely to make a significant clinical difference at this point and only lead to another nonhealing wound draining serous fluid. (12) Abrasion of scrotum Qualifiers: Encounter type: initial encounter Qualified Code(s): S30.813A - Abrasion of scrotum and testes, initial encounter Is this a current diagnosis for this admission?: Yes Plan: Continue supportive care (13) Acute kidney injury (TORIBIO) with acute tubular necrosis (ATN) Is this a current diagnosis for this admission?: Yes Plan: The patient's BUN and creatinine are increasing. It is very surprising that the BUN is increasing with the significant volume of intravenous fluid that the patient has received. Likewise the serum creatinine is increasing. The patient most likely has acute tubular necrosis. This could be from poor perfusion. We will continue to monitor at this time. - Plan Summary Summary: Patient is admitted to the medical floor where he will receive supportive and symptomatic cares per routine. He will be treated with Valium 10 mg IV every hour as needed for seizures or severe agitation. He will be treated with Thorazine 25 mg IV every 8 hours as needed for severe restlessness or hallucinations. He will be continued on diuretic therapy using oral diuretics. His ongoing weaning for his adrenal insufficiency treatment will be continued with Solu-Cortef 20 mg p.o. every morning and 10 mg p.o. every evening. financial services representative will be consulted to aid in placement. 09/01/2019-I spoke to the patient's . I reviewed some of his most significant comorbidities as well as prognosis. I told her that the patient will likely never return to an independent living situation. She had discussed the possibilities of an assisted living facility. I told her that he would likely need senior living facility first. She is not in the [facility] but stated that she would prefer her father to be placed in a local facility. 09/03/2019-I spoke to Lucas again today. I informed her of the need to transfuse the patient yesterday. As they were unable to contact her I recruited a second physician who agreed with my plan and we both signed the consent for transfusion as the medical benefits outweighed the risk. She was fine with that decision. I also discussed his CODE STATUS. She revealed that they had discussed this issue in the past. Possibly even before his initial hospitalization. She was very clear that he is now to be DO NOT RESUSCITATE. Because of his poor prognosis we did discuss a palliative care consult. In addition I told her that if we do not see improvement over the next several days is very unlikely that the patient will make a meaningful recovery. It seems that as one issue improves another issue declines. Hopefully all of the changes in the treatment plan described above will have a positive impact. I will stay in contact to update her. I believe she will be visiting this weekend and I will try and sit with her for further discussion. 09/04/2019-I spoke to Lucas again this evening. She was hoping to visit today however her daughter has the flu and she is feeling sick. She is going to try tomorrow. I expressed my concerns over our loss of ground with some of the organ systems. I am still quite worried and feel that the prognosis for the patient is very poor and likely worsening. If the patient does not exhibit any improvement tomorrow I will discuss the possibility of comfort care measures at this time. - Time Time Spent with patient: 25-34 minutes Medications reviewed and adjusted accordingly: Yes
[2019-09-04] MEDS: METOCLOPRAMIDE HCL INJ/PF 10 MG/2 ML SDV IV SCH ×2 (18:15→23:05)
[2019-09-04] MEDS ORDERED: INSULIN GLARGINE,HUM.REC.ANLOG 1,000 UNIT/10 ML VIAL (PYX) SUBCUT PRN (19:17)
[2019-09-04] MEDS: MELATONIN 5 MG TABLET NG SCH (22:13)
[2019-09-04] MEDS: INSULIN GLARGINE,HUM.REC.ANLOG 1,000 UNIT/10 ML VIAL SUBCUT SCH (22:13)
[2019-09-04] MEDS: MIDODRINE HCL 5 MG TABLET NG SCH (22:17)
[2019-09-05] MEDS: SPIRONOLACTONE 25 MG TABLET NG SCH ×2 (05:23→13:33)
[2019-09-05] MEDS: HEPARIN SOD (PORCINE) 5,000 UNIT/ML 1 ML VIAL SUBCUT SCH ×2 (05:23→13:33)
[2019-09-05] MEDS: METOCLOPRAMIDE HCL INJ/PF 10 MG/2 ML SDV IV SCH ×2 (05:23→12:04)
[2019-09-05] MEDS: MIDODRINE HCL 5 MG TABLET NG SCH ×2 (05:23→13:36)
[2019-09-05] MEDS: POTASSIUM CHLORIDE 20 MEQ PACKET NG SCH ×2 (05:23→13:36)
[2019-09-05] MEDS: PANTOPRAZOLE SODIUM 40 MG PACKET.DR NG SCH (05:24)
[2019-09-05 06:30] LABS: HEMATOCRIT 27.4 % (37.9-51.0); HEMOGLOBIN 9.2 g/dL (13.5-17.0); MEAN CORPUSCULAR HEMOGLOBIN 32.2 pg (27.0-33.4); MEAN CORPUSCULAR HGB CONC 33.7 g/dL (32.0-36.0); MEAN CORPUSCULAR VOLUME 96 fl (80-97); RED BLOOD COUNT 2.87 10^6/uL (4.35-5.55); RED CELL DISTRIBUTION WIDTH 34.4 % (11.5-14.0); WHITE BLOOD COUNT 6.8 10^3/uL (4.0-10.5)
[2019-09-05 06:39] LABS: INTERNATIONAL RATION (INR) 1.65; PROTHROMBIN TIME 19.7 SEC (11.4-15.4)
[2019-09-05 06:45] LABS: ALBUMIN 2.3 g/dL (3.5-5.0); ALKALINE PHOSPHATASE 217 U/L (38-126); ANION GAP 7 (5-19); ASPARTATE AMINO TRANSFERASE 48 U/L (17-59); BILIRUBIN,DIRECT 2.7 mg/dL (0.0-0.4); BILIRUBIN,TOTAL 5.2 mg/dL (0.2-1.3); BLOOD UREA NITROGEN 56 mg/dL (7-20); CALCIUM 7.6 mg/dL (8.4-10.2); CARBON DIOXIDE 28 mmol/L (22-30); CHLORIDE 111 mmol/L (98-107); GLUCOSE 173 mg/dL (75-110); POTASSIUM 4.7 mmol/L (3.6-5.0); TOTAL PROTEIN 5.4 g/dL (6.3-8.2)
[2019-09-05 06:55] LABS: PLATELET COUNT 40 10^3/uL (150-450)
[2019-09-05] MEDS: HYDROCORTISONE 10 MG TABLET NG SCH (07:59)
[2019-09-05] MEDS: INSULIN REG, HUMAN 100 UNIT/ML 3 ML VIAL (PYX) SUBCUT SCH ×2 (07:59→12:05)
[2019-09-05] MEDS: DOCUSATE SODIUM 100 MG/10 ML UDC NG SCH (10:16)
[2019-09-05] MEDS: THIAMINE HCL 100 MG TABLET NG SCH (10:28)
[2019-09-05] MEDS: INSULIN GLARGINE,HUM.REC.ANLOG 1,000 UNIT/10 ML VIAL SUBCUT SCH (10:29)
--- NOTE | 2019-09-05 14:41 | PDOC PROGRESS REPORT ---
Subjective Progress Note for:: 09/05/19 Subjective:: This unfortunate 73-year-old patient has been declining from his complex illness. He has alcoholic cirrhosis with ascites. He also presented with a markedly elevated serum sodium. He may have been trying to provide mostly free water to treat the hypernatremia. This is improved. Unfortunately his ascites is increasing. The puncture wound in his right leg continues to drain serous fluid. His mental state has declined to the point where he will open his eyes a nd respond minimally to 1 or 2 questions and then return to a stuporous state. Reason For Visit: ENCEPHALOPATHY Physical Exam Vital Signs: Temp Pulse Resp BP Pulse Ox 97.4 F 66 28 H 88/65 L 99 09/05/19 07:28 09/05/19 07:28 09/05/19 07:28 09/05/19 07:28 09/05/19 07:28 Intake & Output 09/04/19 09/05/19 09/06/19 06:59 06:59 06:59 Intake Total 3400 1404 350 Output Total 1000 725 Balance 2400 679 350 Weight 84.6 kg 88.6 kg General appearance: PRESENT: disheveled, severe distress. ABSENT: cooperative - The patient is quite lethargic. He is unable to carry on a meaningful conversation. Head exam: PRESENT: atraumatic, normocephalic Eye exam: PRESENT: scleral icterus Ear exam: PRESENT: normal external ear exam. ABSENT: bleeding, drainage Mouth exam: PRESENT: moist, tongue midline Respiratory exam: PRESENT: decreased breath sounds, other - Respirations are gurgling and audible at the bedside. Respirations are quite shallow. The patient cannot take deep breaths on command.. ABSENT: prolonged expiratory phas, retraction Cardiovascular exam: PRESENT: RRR, +S1, +S2 GI/Abdominal exam: PRESENT: ascites, distended, firm, other - Abdominal girth appears larger again today. ABSENT: tenderness Rectal exam: PRESENT: deferred Gentrourinary exam: PRESENT: indwelling catheter - Very concentrated urine Extremities exam: PRESENT: +2 edema, other - Edema in all extremities Neurological exam: PRESENT: altered, oriented to person - He did respond to his name and did attempt to answer the question about pain., other - The patient is only able to be interactive for short periods. He is not answering most questions appropriately. He did respond that he had a small amount of pain but could not comprehend simple questions such as location. With a Irish in terpreter we did try to explain how sick he was and that he was not going to get better and that Lucas, who makes the decisions, informed me that they have discussed in the past the fact that he would not want to be stuck in a bed or in a [facility].. ABSENT: oriented to place, oriented to time, oriented to situation Psychiatric exam: PRESENT: agitated - He tends to get quite agitated if you touch his neck. Focused psych exam: PRESENT: other - Markedly lethargic and minimally responsive Skin exam: PRESENT: jaundice Results Laboratory Results: 09/05/19 05:30 09/05/19 05:30 09/04/19 09/05/19 09/05/19 20:15 05:30 05:30 WBC 6.8 RBC 2.87 L Hgb 9.2 L Hct 27.4 L MCV 96 MCH 32.2 MCHC 33.7 RDW 34.4 H Plt Count 40 L Sodium 145.7 H Potassium 4.7 Chloride 111 H Carbon Dioxide 28 Anion Gap 7 BUN 56 H Creatinine 1.18 Est GFR ( Amer) > 60 Glucose 173 H Calcium 7.6 L Magnesium 2.5 H Total Bilirubin 5.2 H AST 48 Alkaline Phosphatase 217 H Total Protein 5.4 L Albumin 2.3 L Stool Occult Blood POSITIVE Impressions: Chest X-Ray 09/01/19 00:00 IMPRESSION: Little interval change copyright 2011 [employer]- All Rights Reserved Assessment and Plan - Diagnosis (1) Metabolic encephalopathy Is this a current diagnosis for this admission?: Yes (2) Critical illness myopathy Is this a current diagnosis for this admission?: Yes (3) Adrenal insufficiency Is this a current diagnosis for this admission?: Yes (4) Type 2 diabetes mellitus Qualifiers: Diabetes mellitus continuous churn buttermaker insulin use: without continuous churn buttermaker use Diabetes mellitus complication status: with other specified complication Qualified Code(s): E11.69 - Type 2 diabetes mellitus with other specified complication Is this a current diagnosis for this admission?: Yes (5) Hypernatremia Is this a current diagnosis for this admission?: Yes (6) Hyperbilirubinemia Is this a current diagnosis for this admission?: Yes (7) Anemia Qualifiers: Anemia type: unspecified type Qualified Code(s): D64.9 - Anemia, unspecified Is this a current diagnosis for this admission?: Yes (8) Hypokalemia Is this a current diagnosis for this admission?: Yes (9) Hypermagnesemia Is this a current diagnosis for this admission?: Yes (10) Puncture wound of groin Qualifiers: Encounter type: initial encounter Qualified Code(s): S31.139A - Puncture wound of abdominal wall without foreign body, unspecified quadrant without penetration into peritoneal cavity, initial encounter Is this a current diagnosis for this admission?: Yes (11) Ascites due to alcoholic cirrhosis Is this a current diagnosis for this admission?: Yes (12) Abrasion of scrotum Qualifiers: Encounter type: initial encounter Qualified Code(s): S30.813A - Abrasion of scrotum and testes, initial encounter Is this a current diagnosis for this admission?: Yes (13) Acute kidney injury (TORIBIO) with acute tubular necrosis (ATN) Is this a current diagnosis for this admission?: Yes - Plan Summary Summary: Patient is admitted to the medical floor where he will receive supportive and symptomatic cares per routine. He will be treated with Valium 10 mg IV every hour as needed for seizures or severe agitation. He will be treated with Thorazine 25 mg IV every 8 hours as needed for severe restlessness or hallucinations. He will be continued on diuretic therapy using oral diuretics. His ongoing weaning for his adrenal insufficiency treatment will be continued with Solu-Cortef 20 mg p.o. every morning and 10 mg p.o. every evening. corporate services manager will be consulted to aid in placement. 09/01/2019-I spoke to the patient's . I reviewed some of his most significant comorbidities as well as prognosis. I told her that the patient will likely never return to an independent living situation. She had discussed the possibilities of an assisted living facility. I told her that he would likely need correction facility first. She is not in the [place] area but stated that she would prefer her father to be placed in a local facility. 09/03/2019-I spoke to Lucas again today. I informed her of the need to transfuse the patient yesterday. As they were unable to contact her I recruited a second physician who agreed with my plan and we both signed the consent for transfusion as the medical benefits outweighed the risk. She was fine with that decision. I also discussed his CODE STATUS. She revealed that they had discussed this issue in the past. Possibly even before his initial hospitalization. She was very clear that he is now to be DO NOT RESUSCITATE. Because of his poor prognosis we did discuss a palliative care consult. In addition I told her that if we do not see improvement over the next several days is very unlikely that the patient will make a meaningful recovery. It seems that as one issue improves another issue declines. Hopefully all of the changes in the treatment plan described above will have a positive impact. I will stay in contact to update her. I believe she will be visiting this weekend and I will try and sit with her for further discussion. 09/04/2019-I spoke to Lucas again this evening. She was hoping to visit today however her daughter has the flu and she is feeling sick. She is going to try tomorrow. I expressed my concerns over our loss of ground with some of the organ systems. I am still quite worried and feel that the prognosis for the patient is very poor and likely worsening. If the patient does not exhibit any improvement tomorrow I will discuss the possibility of comfort care measures at this time. 09/05/2019- I spoke to Lucas again today. Unfortunately she is still ill, as is her daughter, and was unable to make the trip from [place] today. I have spoken to her every day for the last several days and have kept her updated as to the patient's poor to grave condition. I reviewed the multiple comorbidities and despite progress in some areas he has declined and others. We again discussed the patient's previous interactions with her noting that he would not want to be on a breathing machine or be in a [facility] facility on a permanent basis. I firmly believe that the patient's condition is not recoverable. I do not believe he will be able to function independently or even survive despite aggressive treatment. My fear is that he will be in this condition until he expires. With tube feeding, oxygen and continued care this can be prolonged for weeks if not months. Considering all of this and the patient's critical illness with underlying severe chronic conditions it was decided that the patient would best be served by changing his status to comfort measures only. Palliative care will be seeing the patient. He is appropriate for inpatient hospice. As of right now it is impossible to determine his life expectancy however once his plan is changed to comfort measures only we may have a better idea based on his response to his new regimen. I have reviewed this case with my colleague Dr. Lambert and he concurs. With Lucas's agreement I will change him to comfort measures only. I will discontinue all medications, oxygen and tube feeds and provide aggressive comfort via the use of intravenous morphine, intravenous lorazepam, Tylenol per rectum and any other treatments that would be deemed appropriate in this situation. - Time Time Spent with patient: 35 or more minutes Medications reviewed and adjusted accordingly: Yes Anticipated discharge: Hospice
[2019-09-05] MEDS ORDERED: ACETAMINOPHEN 650 MG SUPP.RECT PR PRN (15:05)
[2019-09-05] MEDS ORDERED: CHLORPROMAZINE HCL INJ 25 MG/1 ML AMPULE IV PRN (15:06)
[2019-09-05] MEDS: MORPHINE SULFATE 10 MG/ML INJ IV PRN ×2 (17:34→22:10)
[2019-09-06] MEDS: LORAZEPAM INJ 2 MG/1 ML VIAL IV PRN (11:08)
--- NOTE | 2019-09-06 15:32 | ADVANCED CARE ---
- Diagnosis (1) Hypernatremia Diagnosis Current: Yes (2) Hyperbilirubinemia Diagnosis Current: Yes (3) Metabolic encephalopathy Diagnosis Current: Yes (4) Adrenal insufficiency Diagnosis Current: Yes (5) Critical illness myopathy Diagnosis Current: Yes (6) Type 2 diabetes mellitus Diagnosis Current: Yes (7) Anemia Diagnosis Current: Yes (8) Hypokalemia Diagnosis Current: Yes (9) Hypermagnesemia Diagnosis Current: Yes (10) Puncture wound of groin Diagnosis Current: Yes (11) Ascites due to alcoholic cirrhosis Diagnosis Current: Yes (12) Abrasion of scrotum Diagnosis Current: Yes (13) Acute kidney injury (TORIBIO) with acute tubular necrosis (ATN) Diagnosis Current: Yes Attendance: Several discussions were had over the phone with the patient's decision maker Lucas. She lives out of town and was unable to be at the bedside. The patient was not involved due to his metabolic encephalopathy. Resuscitation Status: Comfort Measures Only Discussion: The discussion was held with the patient's decision maker, Lucas, who unfortunately lives out of town. I did been speaking to her daily for the last 3 days. We reviewed the previous phone calls. 2 days ago we change the CODE STATUS to DNR. I suggested we wait 1 to 2 days to see if there is any improvement. There was no improvement as of September 05 and therefore after long discussion it was agreed that the patient would best be served by changing to comfort measures only. Care Planning Goals: Considering the patient's current condition, deterioration in previous discussions had with Lucas, the decision to change to comfort measures only was agreed upon Document(s) Completed: None Time Spent: 25 minutes
--- NOTE | 2019-09-06 16:12 | PDOC PROGRESS REPORT ---
Subjective Progress Note for:: 09/06/19 Subjective:: Patient is not verbal at the moment. Discussion was had between Dr. Alatorre and patient's poa yesterday and was made comfort care. Reason For Visit: ENCEPHALOPATHY Physical Exam Vital Signs: Temp Pulse Resp BP Pulse Ox 97.4 F 100 19 111/77 95 09/05/19 07:28 09/06/19 08:00 09/06/19 08:00 09/06/19 08:00 09/06/19 08:00 Intake & Output 09/05/19 09/06/19 09/07/19 06:59 06:59 06:59 Intake Total 1404 350 Output Total 725 325 Balance 679 25 Weight 88.6 kg 88.6 kg General appearance: PRESENT: no acute distress, cooperative Respiratory exam: PRESENT: symmetrical, unlabored. ABSENT: accessory muscle use, tachypnea, wheezes Cardiovascular exam: PRESENT: +S1, +S2. ABSENT: clicks, tachycardia GI/Abdominal exam: PRESENT: ascites, distended, soft. ABSENT: guarding, rebound, rigid Neurological exam: PRESENT: alert, awake, other - not verbalizing any words and not engaged in interaction. ABSENT: oriented to person, oriented to place, oriented to time, oriented to situation Results Laboratory Results: 09/05/19 05:30 09/05/19 05:30 Impressions: Chest X-Ray 09/01/19 00:00 IMPRESSION: Little interval change copyright 2011 [employer]- All Rights Reserved Assessment and Plan - Diagnosis (1) Metabolic encephalopathy Is this a current diagnosis for this admission?: Yes (2) Alcoholic cirrhosis of liver with ascites Is this a current diagnosis for this admission?: Yes (3) Acute kidney injury (TORIBIO) with acute tubular necrosis (ATN) Is this a current diagnosis for this admission?: Yes (4) Anemia Qualifiers: Anemia type: unspecified type Qualified Code(s): D64.9 - Anemia, u nspecified Is this a current diagnosis for this admission?: Yes (5) Critical illness myopathy Is this a current diagnosis for this admission?: Yes (6) Hypernatremia Is this a current diagnosis for this admission?: Yes (7) Puncture wound of groin Qualifiers: Encounter type: initial encounter Qualified Code(s): S31.139A - Puncture wound of abdominal wall without foreign body, unspecified quadrant without penetration into peritoneal cavity, initial encounter Is this a current diagnosis for this admission?: Yes (8) Hypokalemia Is this a current diagnosis for this admission?: Yes (9) Type 2 diabetes mellitus Qualifiers: Diabetes mellitus group home insulin use: without group home use Diabetes mellitus complication status: with other specified complication Qualified Code(s): E11.69 - Type 2 diabetes mellitus with other specified complication Is this a current diagnosis for this admission?: Yes - Plan Summary Summary: Patient is admitted to the medical floor where he will receive supportive and symptomatic cares per routine. He will be treated with Valium 10 mg IV every hour as needed for seizures or severe agitation. He will be treated with Thorazine 25 mg IV every 8 hours as needed for severe restlessness or hallucinations. He will be continued on diuretic therapy using oral diuretics. His ongoing weaning for his adrenal insufficiency treatment will be continued with Solu-Cortef 20 mg p.o. every morning and 10 mg p.o. every evening. volunteer services supervisor will be consulted to aid in placement. 09/01/2019-I spoke to the patient's . I reviewed some of his most significant comorbidities as well as prognosis. I told her that the patient will likely never return to an independent living situation. She had discussed the possibilities of an assisted living facility. I told her that he would likely need senior care facility first. She is not in the [place] area but stated that she would prefer her father to be placed in a local facility. 09/03/2019-I spoke to Cedalila again today. I informed her of the need to transfuse the patient yesterday. As they were unable to contact her I recruited a second physician who agreed with my plan and we both signed the consent for transfusion as the medical benefits outweighed the risk. She was fine with that decision. I also discussed his CODE STATUS. She revealed that they had discussed this issue in the past. Possibly even before his initial hospitalization. She was very clear that he is now to be DO NOT RESUSCITATE. Because of his poor prognosis we did discuss a palliative care consult. In addition I told her that if we do not see improvement over the next several days is very unlikely that the patient will make a meaningful recovery. It seems that as one issue improves another issue declines. Hopefully all of the changes in the treatment plan described above will have a positive impact. I will stay in contact to update her. I believe she will be visiting this weekend and I will try and sit with her for further discussion. 09/04/2019-I spoke to Mananhiramnimo again this evening. She was hoping to visit today however her daughter has the flu and she is feeling sick. She is going to try tomorrow. I expressed my concerns over our loss of ground with some of the organ systems. I am still quite worried and feel that the prognosis for the patient is very poor and likely worsening. If the patient does not exhibit any improvement tomorrow I will discuss the possibility of comfort care measures at this time. 09/05/2019- I spoke to Mananhiramnimo again today. Unfortunately she is still ill, as is her daughter, and was unable to make the trip from [place] today. I have spoken to her every day for the last several days and have kept her updated as to the patient's poor to grave condition. I reviewed the multiple comorbidities and despite progress in some areas he has declined and others. We again discussed the patient's previous interactions with her noting that he would not want to be on a breathing machine or be in a usp facility on a permanent basis. I firmly believe that the patient's condition is not recoverable. I do not believe he will be able to function independently or even survive despite aggressive treatment. My fear is that he will be in this condition until he expires. With tube feeding, oxygen and continued care this can be prolonged for weeks if not months. Considering all of this and the patient's critical illness with underlying severe chronic conditions it was decided that the patient would best be served by changing his status to comfort measures only. Palliative care will be seeing the patient. He is appropriate for inpatient hospice. As of right now it is impossible to determine his life expectancy however once his plan is changed to comfort measures only we may have a better idea based on his response to his new regimen. I have reviewed this case with my colleague Dr. Lambert and he concurs. With Lucas's agreement I will change him to comfort measures only. I will discontinue all medications, oxygen and tube feeds and provide aggressive comfort via the use of intravenous morphine, intravenous lorazepam, Tylenol per rectum and any other treatments that would be deemed appropriate in this situation. 09/06/2019-continue with comfort care measures only. Discharge planning consulted for hospice planning. Patient he is appropriate for inpatient hospice. Morphine as needed pain. Ativan as needed for anxiety/agitation. - Time Time Spent with patient: Less than 15 minutes
[2019-09-07] MEDS: LORAZEPAM INJ 2 MG/1 ML VIAL IV PRN (02:33)
--- NOTE | 2019-09-07 19:22 | Progress Note ---
Provider Note Provider Note: Patient seen and evaluated by me. Patient is currently hemodynamically stable. Still very much encephalopathic and altered likely hallucinating on examination. Does not appear to have labored breathing at the moment and no accessory muscle use. Does not be in pain. And continue with comfort care measures. Working on discharging patient to hospice facility for inpatient hospice which is appropriate for. Continue morphine as needed and PRN Ativan.
[2019-09-08] MEDS: LORAZEPAM INJ 2 MG/1 ML VIAL IV PRN (01:14)
[2019-09-08 10:02] VITALS: BP 140/87
[2019-09-08] MEDS ORDERED: CHLORPROMAZINE HCL INJ 25 MG/1 ML AMPULE IV PRN (11:37)
--- NOTE | 2019-09-08 14:50 | Progress Note ---
Provider Note Provider Note: Patient seen and evaluated. Patient is still very encephalopathic. Vital signs remained stable. Noted to be moving his mouth as though he was talking to a hallucination. No agitation or aggressive behavior. Continue comfort care measures only. Patient has very poor prognosis with decompensated alcoholic cirrhosis of the liver accompanied with severe encephalopathy. Awaiting placement in inpatient hospice. Discharge planning working on this and coordinating with patient's family.
--- NOTE | 2019-09-09 14:24 | PDOC TRANSFER SUMMARY ---
General - Admit/Disc Date/PCP Admission Date/Primary Care Provider: 08/31/19 19:43 Discharge Date: 09/09/19 - Discharge Diagnosis (1) Metabolic encephalopathy Is this a current diagnosis for this admission?: Yes (2) Alcoholic cirrhosis of liver with ascites Is this a current diagnosis for this admission?: Yes (3) Acute kidney injury (TORIBIO) with acute tubular necrosis (ATN) Is this a current diagnosis for this admission?: Yes (4) Anemia Is this a current diagnosis for this admission?: Yes (5) Critical illness myopathy Is this a current diagnosis for this admission?: Yes (6) Hypernatremia Is this a current diagnosis for this admission?: Yes (7) Puncture wound of groin Is this a current diagnosis for this admission?: Yes (8) Hypokalemia Is this a current diagnosis for this admission?: Yes (9) Type 2 diabetes mellitus Is this a current diagnosis for this admission?: Yes (10) Adrenal insufficiency Is this a current diagnosis for this admission?: Yes (11) Coronary artery disease Is this a current diagnosis for this admission?: Yes (12) Coagulopathy Is this a current diagnosis for this admission?: Yes - Additional Information Resuscitation Status: Comfort Measures Only Prescriptions: Lorazepam [Ativan 1 mg Tablet] 1 mg SL Q4 PRN #5 tab PRN Reason: Hyoscyamine Sulfate [Levsin 0.125 Tablet] 0.125 mg PO Q4HP PRN #10 tablet PRN Reason: Morphine Sulfate [Morphine Oral Soln 10 Mg/5 Ml Udcup] 5 - 10 mg PO Q3HP PRN #5 udc PRN Reason: Promethazine HCl [Phenergan 25 mg Tablet] 25 - 50 mg PO ASDIR PRN #12 tablet PRN Reason: For Nausea/Vomiting Home Medications: Acetaminophen [Tylenol 650 mg Supp] [address] Q4HP PRN supp.rect 09/09/19 Hyoscyamine Sulfate [Levsin 0.125 Tablet] 0.125 mg PO Q4HP PRN #10 tablet 09/09/19 Lorazepam [Ativan 1 mg Tablet] 1 mg SL Q4 PRN #5 tab 09/09/19 Morphine Sulfate [Morphine Oral Soln 10 Mg/5 Ml Udcup] 5 - 10 mg PO Q3HP PRN #5 udc 09/09/19 Promethazine HCl [Phenergan 25 mg Tablet] 25 - 50 mg PO ASDIR PRN #12 tablet 09/09/19 History of Present Illness Admission Date/PCP: 08/31/19 19:43 History of Present Illness: KAREN BOONE is a 73 year old male who presented in transfer from [facility] for ongoing care of his acute encephalopathy. Patient was seen in our emergency room on 08/17/2019 and was found to be in septic shock with acute kidney injury and an aspiration pneumonia resulting in his transfer to the [facility] for treatment. Patient has been hospitalized there since that time with resolution of his respiratory issues, kidney injury and sepsis. Patient has experienced ongoing continued encephalopathy throughout his hospitalization there and has been subsequently transferred back to [facility] for continued care. Due to the patient's severe metabolic encephalopathy he is unable to provide historical or other input into his medical care. Hospital Course Hospital Course: Patient also here, conversation was had between patient's decision maker Lucas and our hospitalist Dr. Alatorre about patient's condition ultimate poor prognosis with his severe metabolic encephalopathy and liver failure coupled with electrolyte derangements. Is all indicators of very poor prognosis. Patient is decision-maker decided to make patient hospice and comfort care only. At this point patient be made comfortable with plan to discharge for inpatient hospice. Vital signs are currently stable. Physical Exam Vital Signs: Temp Pulse Resp BP Pulse Ox 97.4 F 71 14 140/87 H 99 09/05/19 07:28 09/08/19 10:00 09/08/19 10:00 09/08/19 10:00 09/08/19 10:00 Intake & Output 09/08/19 09/09/19 09/10/19 06:59 06:59 06:59 Output Total 925 2150 Balance -925 -2150 Weight 85.1 kg General appearance: PRESENT: no acute distress, morbidly obese Eye exam: PRESENT: scleral icterus Neck exam: PRESENT: JVD Respiratory exam: PRESENT: symmetrical, unlabored. ABSENT: tachypnea, wheezes Cardiovascular exam: PRESENT: +S1, +S2 Neurological exam: PRESENT: altered, awake, aphasic, other. ABSENT: oriented to person, oriented to place, oriented to time, oriented to situation Focused psych exam: PRESENT: internal stimuli Results Laboratory Results: 09/05/19 05:30 09/05/19 05:30 Impressions: Chest X-Ray 09/01/19 00:00 IMPRESSION: Little interval change copyright 2011 [employer]- All Rights Reserved Transfer Plan - Time Spent with Patient Time spent with patient: Less than 30 Minutes Qualifiers PATIENT BEING DISCHARGED WITH ANY OF THE FOLLOWING DIAGNOSIS: No VTE patient discharged on overlapping Therapy?: No Reason(s) for not prescribing Overlap Therapy:: Comfort Measure, Hospice Care
[2019-09-10] MEDS: LORAZEPAM INJ 2 MG/1 ML VIAL IV PRN (05:11)
== END 2019-09-10 16:51 | disposition hospice, inpatient (51) | DRG 70 ==
LOC: 4W 19:43
PROVIDERS: ADMIT Hospitalist; ATTEND Hospitalist
PROC: 30233N1 Transfusion of Nonautologous Red Blood Cells into Peripheral Vein, Percutaneous Approach (ICD-10-PCS; principal; 2019-09-02)
DX: G93.41 Metabolic encephalopathy (principal); N17.0 Acute kidney failure with tubular necrosis; E27.40 Unspecified adrenocortical insufficiency; G72.81 Critical illness myopathy; E87.0 Hyperosmolality and hypernatremia; D68.9 Coagulation defect, unspecified; T82.898A Other specified complication of vascular prosthetic devices, implants and grafts, initial encounter; K70.31 Alcoholic cirrhosis of liver with ascites; I10 Essential (primary) hypertension; E87.6 Hypokalemia; E11.69 Type 2 diabetes mellitus with other specified complication; I25.10 Atherosclerotic heart disease of native coronary artery without angina pectoris; D64.9 Anemia, unspecified; E78.5 Hyperlipidemia, unspecified; D69.6 Thrombocytopenia, unspecified; S30.813A Abrasion of scrotum and testes, initial encounter; X58.XXXA Exposure to other specified factors, initial encounter; F10.20 Alcohol dependence, uncomplicated; Y82.8 Other medical devices associated with adverse incidents; Y92.238 Other place in hospital as the place of occurrence of the external cause; Y90.9 Presence of alcohol in blood, level not specified; Y93.89 Activity, other specified; Y92.89 Other specified places as the place of occurrence of the external cause; Z60.2 Problems related to living alone
CPT/HCPCS: 36415; 36430; 71045; 80048; 80053; 80076; 81001; 82140; 82272; 82607; 82728; 82746; 82962; 82977; 83540; 83550; 83735; 84100; 84443; 85027; 85045; 85610; 86850; 86900; 86901; 86920; J1815; J1940; J2060; J2270; J2765; J3360; J3480; J3490; J7060; P9016; P9047